=== PATIENT | male | born 1960 | race Caucasian/White ===

== ENCOUNTER 2019-03-27 09:44 | Inpatient (IN) | payer BC, SELFPAY ==
[2019-03-27] VITALS (14 sets, daily range): BP systolic 127–202; BP diastolic 74–136; PULSE 56–111; RESP 16–25; TEMP 36.2–36.9; O2SAT 92–95; BMI 33.2; BMI 33.0
--- NOTE | 2019-03-27 10:07 | EKG12_ITS ---
Test Reason : GENERAL ILLNESS Blood Pressure : / mmHG Vent. Rate : 108 BPM Atrial Rate : 108 BPM P-R Int : 136 ms QRS Dur : 144 ms QT Int : 396 ms P-R-T Axes : 045 -16 -46 degrees QTc Int : 530 ms Sinus tachycardia Left atrial enlargement Right bundle branch block Left ventricular hypertrophy T- wave Abnormality: consider LVH Repolarization ; Myocardial Ischemia; Metabolic Effect, Medication Effect Abnormal ECG Confirmed by RIVAS MARS, YARI ([id number]), clinical editor ANA CRAIG ([id number]) on 03/29/2019 2:29:48 PM Referred By: Derrick Telles Confirmed By:YARI HATHAWAY MD
--- NOTE | 2019-03-27 10:07 | RAD_ITS ---
STUDY: X-RAY CHEST REASON FOR EXAM: Male, 59 years old. Fatigue and dyspnea with night sweats. TECHNIQUE: PA and lateral views of the chest. COMPARISON: None. FINDINGS: Mild prominent interstitial markings with no evidence of focal consolidation. There is no demonstrated pleural abnormality. There is borderline cardiomegaly. Normal mediastinum and mohsen. Normal visualized pulmonary arteries. There is atherosclerotic calcification of the aortic arch with tortuosity. Normal visualized thoracic spine. Normal visualized ribs, clavicles, and shoulders. There is no demonstrated abnormality of the visualized soft tissue structures of the upper abdomen. RAD/Chest PA and Lateral IMPRESSION: Mild prominent interstitial markings with no focal consolidation. Electronically Signed: Bucky Carcamo DO at 10:49 EDT , Service support ,
[2019-03-27 10:19] LABS: Absolute Lymphocyte Count 1.27 X10^3/ul (0.83-4.51); Absolute Neutrophil Count 6.7 X10^3/uL (2.0-7.7); Basophil# 0.02 X10^3/uL; Basophil% 0.2 % (0-1); Eosinophil# 0.12 X10^3/uL; Eosinophils% 1.4 % (0-5); Hematocrit 42.7 % (40-54); Hemoglobin 14.2 g/dl (13.0-16.5); Lymphocyte # 1.27 X10^3/ul (4.0); Lymphocyte % 15.1 % (19-41); Mean Corp Hgb Conc 33.3 g/gl (32-36); Mean Corpuscular Hgb 30.4 pg (27.0-32.0); Mean Corpuscular Volume 91.4 fL (80-94); Mean Platelet Vol. 11.8 fl (6.2-12.0); Monocyte# 0.31 X10^3/uL; Monocyte% 3.7 % (0-10); Neutrophil # 6.69 X10^3/uL (2.7-7.7); Neutrophil % 79.5 % (47-70); Platelet Count 145 K/mm3 (150-450); RBC Distribution Width CV 15.1 % (11.6-14.6); RBC Distribution Width SD 49.4 fl (35.1-43.9); Red Blood Count 4.67 M/mm3 (4.6-6.2); White Blood Count 8.4 K/mm3 (4.4-11.0)
[2019-03-27 10:20] LABS: POSITIVE COUNT NO; POSITIVE DIFFERENTIAL NO; POSITIVE MORPHOLOGY NO
[2019-03-27 10:36] LABS: ALB/GLOB Ratio 1.1 RATIO (0.9-2.4); AST(SGOT) 49 U/L (15-37); Alanine Aminotransfer ALT/SGPT 72 U/L (16-61); Albumin, Serum 3.5 g/dL (3.2-5.0); Alkaline Phosphatase 71 U/L (45-117); Anion Gap 10 (5-15); BUN 26 mg/dL (7-18); BUN/Creat Ratio 16.4 RATIO (10-20); Calcium,Total 8.4 mg/dL (8.5-10.1); Chloride 106 mmol/L (98-107); Creatinine, Serum 1.59 mg/dL (0.70-1.30); EST Glomerular Filtration Rate 48 mL/min (>60); Est Glom Filt Rate - Afr Amer 58 mL/min (>60); Estimated Creatinine Clearance 55.58 ml/min; Globulin 3.2 g/dL (2.2-4.2); Glucose 220 mg/dL (74-106); Potassium 3.4 mmol/L (3.5-5.1); Protein, Total 6.7 g/dL (6.4-8.2); Sodium Level 143 mmol/L (136-145)
[2019-03-27 10:46] LABS: BNP,B-Type NATRIURETIC PEPTIDE 1259.2 pg/mL (0-100)
--- NOTE | 2019-03-27 11:36 | ED.VIS.GEN ---
History of Present Illness Chief Complaint: General Illness Informant: Patient, Significant Other Onset: Weeks Context: Gradual Onset Timing: Continuous Quality: Dyspnea, dyspnea on exertion intermittent chest pressure Location: Midsternal Current Severity: - - Presently no chest pain Maximum Severity: Mild - Precipitated by exertion Worsened by: Patient symptoms are made worse with activity and exertion Relieved by: Better or alleviated with rest Associated Symptoms: Weight gain and leg swelling Narrative: Patient is a middle-aged gentleman who has no cervical medical problems and has not seen a doctor in years who presents with dyspnea, dyspnea on exertion and intermittent midsternal chest tightness with activity. The weight gain is been over the past month. The leg swelling was not noted by patient but noted by significant other. He denies orthopnea or PND. He denies fever, chills night sweats. He has a nonproductive intermittent cough. He denies GI or symptoms. He is presently on no medication. Prior similar symptoms: No Recent Illness/Hospitalization: No - Past Medical History (1) No significant past medical history Status: Acute Past Medical History - Allergies and Home Meds Allergies/Adverse Reactions: Allergies No Known Allergies Allergy (Verified 03/27/19 09:47) Primary Care Physician: Care Physician,No Primary [Primary Care Provider] - Prior records reviewed: No - There are none Surgical History: no surgical history Lives: Spouse/ Significant Other Smoking Status: Former smoker Alcohol: None Drugs: None Review of Systems General: Denies: Chills, Fever, Sweats Eyes: Denies: Visual changes - bilaterally, Diplopia ENT: Denies: Rhinorrhea, Sore throat Cardiovascular: Reports: Heart racing. Denies: Chest pain, Palpitations Respiratory: Reports: Dyspnea, Dyspnea on exertion. Denies: Cough, Orthopnea, Paroxysmal nocturnal dyspnea Gastrointestinal: Denies: Abdominal pain, Nausea, Vomiting, Diarrhea, Melena, Hematochezia Genitourinary: Denies: Dysuria, Hematuria, Frequency Musculoskeletal: Denies: Back pain, Extremity Pain Skin: Denies: Rash, Wounds Neurological: Denies: Headache, Weakness, Parasthesia, Numbness Hematologic: Denies: Easy bruising, Easy bleeding Allergy: Denies: Uticaria, Swelling of the mouth Physical Exam Vital Signs/Narrative: Vital Signs Temp Pulse Resp BP Pulse Ox 03/27/19 09:46 97.1 F L 56 L 18 202/136 H 95 Inital Vital Signs reviewed: Yes General: Well nourished, Well developed, Obese, No Acute Distress Head: Normocephalic, Atraumatic Eyes: Perrl, EOMI. Negative for: Pale conjunctiva, Scleral icterus ENT: Moist mucous membranes, No rhinorrhea, TM's clear, - - Patient has poor dentition. Neck: Negative for: Supple, Nontender, No lymphadenopathy, No JVD, - - Trachea is midline. There is no carotid bruit. Cardiovascular: Regular rhythm, No murmurs, Normal S1, Normal S2, Bradycardia Respiratory: No distress, Chest nontender, Rales - Rales left base Abdomen: Soft, Nontender, Nondistended, Normal bowel sounds, No masses Rectal: Deferred Back: Nontender, Normal Inspection. Negative for: CVA tenderness Extremities: Nontender, Edema - 2+ pitting Skin: No rash, No Trauma, Pallor. Negative for: Cyanosis, Diaphoresis, Jaundice Neurological: Alert, Oriented x3, Cranial nerves II-XII grossly intact, Normal Strength, Normal Sensation Psychological: Normal affect, Normal Mood Diagnostic/Tx/Re-eval Chest X-Ray - ED: 2 View, Read by ED Physician, Normal, Bony Structures, - - There is mild interstitial fluffiness suggestive of congestive heart failure in light of patient's history and physical. Cardiac silhouette is prominent and consistent with cardiomegaly. There is no pleural effusion noted. Impressions Chest X-Ray 03/27/19 10:07 IMPRESSION: Mild prominent interstitial markings with no focal consolidation. Electronically Signed: Bucky Carcamo DO at 10:49 EDT , Service support , 03/27/19 10:07 Chest PA and Lateral [RAD] Stat Laboratory Results 03/27/19 03/27/19 03/27/19 10:11 10:11 10:11 WBC 8.4 RBC 4.67 Hgb 14.2 Hct 42.7 MCV 91.4 MCH 30.4 MCHC 33.3 RDW 15.1 H RDW Differential 49.4 H Plt Count 145 L MPV 11.8 Immature Gran % (Auto) 0.100 Neut % (Auto) 79.5 H Lymph % (Auto) 15.1 L [place] % (Auto) 3.7 Eos % (Auto) 1.4 Baso % (Auto) 0.2 Absolute Neuts (auto) 6.7 Absolute Lymphs (auto) 1.27 Total Counted Not Reportable Sodium 143 Potassium 3.4 L Chloride 106 Carbon Dioxide 27.0 Anion Gap 10 BUN 26 H Creatinine 1.59 H Estim Creat Clear Calc 55.58 Est GFR (MDRD) Af Amer 58 L Est GFR (MDRD) Non-Af 48 L BUN/Creatinine Ratio 16.4 Glucose 220 H Calcium 8.4 L Total Bilirubin 1.00 AST 49 H ALT 72 H Alkaline Phosphatase 71 Troponin I 0.158 H B-Natriuretic Peptide 1259.2 H Total Protein 6.7 Albumin 3.5 Globulin 3.2 Albumin/Globulin Ratio 1.1 - Medical Decision Making Based on patient's history and physical exam concern he has new onset congestive heart failure. We will need to determine etiology. Because he reported chest discomfort with exertion of troponin was obtained. Troponin is elevated 0.158. This may be secondary to heart failure. This may also be secondary to heart strain because of elevated blood pressure. Since his blood pressure initially was greater than 200 he was treated with IV enalapril. He also received 4 baby aspirin to chew and swallow. Clinically he is fluid overloaded and received 20 mrem of Lasix and 1 inch of Nitropaste for diuresis and preload reduction respectively. Patient and significant other were made aware of his findings and need for admission for further testing. 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
[2019-03-27] MEDS: Nitroglycerin Oint 1 INCH PACKET TRANSDERM. (11:43)
[2019-03-27] MEDS: Aspirin 81 MG TAB.CHEW 324 MG PO (11:44)
[2019-03-27] MEDS: Furosemide 20 MG/2 ML VIAL IV (11:44)
[2019-03-27] MEDS: Enalaprilat 1.25 MG/ML Vial IV (11:48)
[2019-03-27] MEDS: Furosemide 40 MG/4 ML Vial IV ×2 (13:10→17:41)
--- NOTE | 2019-03-27 13:35 | PCM.HP.STD ---
Problem List (1) Acute kidney injury Status: Acute (2) Acute heart failure Status: Acute (3) Elevated troponin I level Status: Acute (4) Hypertensive urgency Status: Acute History of Present Illness Date of Admission: 03/27/19 Chief Complaint: Shortness of breath for about 3 weeks The patient is a 59 year old M who has not seen for 14 years came to ED with progressive worsening of shortness of breath mainly dyspnea on exertion for about 1 month. Patient also noticed weight gain and leg swelling noticed by her fianc?. Patient denies orthopnea or PND. Patient gets short of breath when walking 1 block or going upstairs. Patient denies any prior history of heart disease, lung disease. [] Past Medical History Allergies No Known Allergies Allergy (Verified 03/27/19 09:47) Home Medications: Ambulatory Orders Medication Instructions Recorded NK 03/27/19 Surgical History: no surgical history Lives: Spouse/ Significant Other Smoking Status: Former smoker - He smoked occasionally in teenage for 1 to 2 years Tobacco Use: Chew - Phaco Alcohol: None Drugs: None - *Family History Paternal History Items: Heart Disease - at the age of 72 at [facility] [place] Maternal History Items: Heart Disease - 65 at [facility] [place] Review of Systems Constitutional: Denies: Chills, Fever, Weight Change HEENT: Denies: Head Aches, Sinus Congestion, Sinus Drainage Cardiovascular: Denies: Chest Pain, Palpitations Respiratory: Reports: Shortness of breath upon exertion. Denies: Cough, Shortness of breath at rest, Sputum production Gastrointestinal: Reports: Abdominal Pain - Complain of mild abdominal fullness but no pain. Denies: Nausea, Vomiting Genitourinary: Reports: Frequency - Patient is having increased frequency of urination for last 3 to 4 weeks but less amount. Denies: Dysuria Musculoskeletal: Reports: Back Pain - Right-sided back pain about 3 weeks ago which got resolved. Denies: Joint Pain, Joint Tenderness Skin: Denies: Rash, Wounds Neurological: Denies: Numbness, Tingling, Focal weakness Psychiatric: Denies: Anxiety, Depression, Homicidal Ideations, Suicidal Ideations Hematologic/ Lymphatic: Denies: Easy Bruising, Easy Bleeding VTE Information - Inpt Only VTE Present on Admission: No VTE Mechan Device Prophylaxis: None VTE Pharm Prophylaxis ordered?: Yes Patient Problems: Active and Suspected Problems Acute heart failure (Acute) Elevated troponin I level (Acute) Acute renal insufficiency (Acute) Hypertensive urgency (Acute) Acute kidney injury (Acute) - Physical Exam General: Alert, Oriented x3, Cooperative HEENT: Atraumatic, PERRLA, EOMI, Normocephalic Oral: Dry Mucosa Neck: Supple, No JVD, Negative Carotid Bruits, Negative Hepatojugular Reflux Lungs: No rhonchi, No wheeze, No rales, Diminished - Air entry diminished bilaterally Cardiovascular: Regular rate, Regular Rhythm, Normal S1, Normal S2, No murmurs Abdomen: Bowel Sounds Present, Soft, Non Tender, Non-Distended Extremities: Capillary Refill Less than 3 Seconds, Edema - Mild peripheral edema Skin: No rashes, No breakdown Musculoskeletal: No Tenderness to Palpation of Joints or Extremities, Arthritic Changes Lymphatic: No Cervical, Supraclavicular, or Inguinal Adenopathy Neurological: Cranial nerves II-XII grossly intact, Deep Tendon Reflexes 2+/4 and Symmetrical, Neuro grossly intact, Motor Exam 5/5 strength throughout Psych/Mental Status: Normal Affect, Appropriate Vital Signs Temp Pulse Resp BP Pulse Ox 98.3 F 100 16 172/119 H 95 03/27/19 12:27 03/27/19 12:48 03/27/19 12:48 03/27/19 12:27 03/27/19 12:48 Oxygen Flow Rate (L/min) 2 Oxygen Delivery Method Room Air Weight: 243 lb 2.718 oz Body Mass Index (BMI) 33.0 Laboratory Tests Past 24 Hrs 03/27/19 03/27/19 03/27/19 10:11 10:11 10:11 WBC 8.4 RBC 4.67 Hgb 14.2 Hct 42.7 MCV 91.4 MCH 30.4 MCHC 33.3 RDW 15.1 H RDW Differential 49.4 H Plt Count 145 L MPV 11.8 Immature Gran % (Auto) 0.100 Neut % (Auto) 79.5 H Lymph % (Auto) 15.1 L [place] % (Auto) 3.7 Eos % (Auto) 1.4 Baso % (Auto) 0.2 Absolute Neuts (auto) 6.7 Absolute Lymphs (auto) 1.27 Total Counted Not Reportable Sodium 143 Potassium 3.4 L Chloride 106 Carbon Dioxide 27.0 Anion Gap 10 BUN 26 H Creatinine 1.59 H Estim Creat Clear Calc 55.58 Est GFR (MDRD) Af Amer 58 L Est GFR (MDRD) Non-Af 48 L BUN/Creatinine Ratio 16.4 Glucose 220 H Calcium 8.4 L Total Bilirubin 1.00 AST 49 H ALT 72 H Alkaline Phosphatase 71 Troponin I 0.158 H B-Natriuretic Peptide 1259.2 H Total Protein 6.7 Albumin 3.5 Globulin 3.2 Albumin/Globulin Ratio 1.1 Assessment/Plan All Active Problems Acute heart failure (Acute) Elevated troponin I level (Acute) Acute renal insufficiency (Acute) Hypertensive urgency (Acute) Acute kidney injury (Acute) he patient is a 59 year old M who has not seen for 14 years came to ED with progressive worsening of shortness of breath mainly dyspnea on exertion for about 1 month. Patient also noticed weight gain and leg swelling noticed by her fianc?. Patient denies orthopnea or PND. Chest x-ray in ED shows mild interstitial prominence but no focal consolidation. EKG shows sinus tachycardia at 108 bpm, right bundle branch block with left atrial enlargement. [] In ED, patient was found hypertensive urgency, BP 202/136, heart rate 56 but no tachypnea or hypoxia. He got enalapril 1.25 mg IV in ER 1. New onset heart failure, exact type and etiology unclear: Patient is being admitted in PCU. Serial troponin enzymes. Started on Lasix 40 mg IV twice daily. Started on Coreg 3.125 mg twice daily. 2D echo ordered. Patient not candidate of MOIZ/ARB secondary to acute kidney injury. BNP 1200. Fasting lipid profile for tomorrow a.m. 2. Elevated troponin enzyme possible demand ischemia: Trend troponin enzymes. Patient denies chest tightness or chest pain possible related with heart failure/acute kidney injury. Nitro sublingual for chest pain as needed the patient denies chest pain the last 3 to 4 weeks 3. Hypertensive urgency: Started on hydralazine and nitrate. Hydralazine 10 mg IV q. 6 hourly as needed for systolic blood pressure more than 180 or diastolic more than 100 mmHg. 4. New onset diabetes mellitus type 2: Glucose in BMP is 220. Patient has symptoms of polyuria and polydipsia. Has been drinking a lot of pops. A1c tomorrow a.m. Accu-Chek before meals and at bedtime and cover with Humalog sliding scale. UA ordered. 5. Possible acute kidney injury or CKD: BUN/creatinine 26/1.6. No prior labs to compare with. Mild hypokalemia. K being replaced. 6. Recent right-sided back pain 2 to 3 weeks ago: Resolved. KUB x-ray ordered. Every 2 hours: Lovenox 40 subcu daily Laboratory Results 03/27/19 10:11: WBC 8.4, RBC 4.67, Hgb 14.2, Hct 42.7, MCV 91.4, MCH 30.4, MCHC 33.3, RDW 15.1 H, RDW Differential 49.4 H, Plt Count 145 L, MPV 11.8, Immature Gran % (Auto) 0.100, Neut % (Auto) 79.5 H, Lymph % (Auto) 15.1 L, [place] % (Auto) 3.7, Eos % (Auto) 1.4, Baso % (Auto) 0.2, Absolute Neuts (auto) 6.7, Absolute Lymphs (auto) 1.27, Total Counted Not Reportable 03/27/19 10:11: Sodium 143, Potassium 3.4 L, Chloride 106, Carbon Dioxide 27.0, Anion Gap 10, BUN 26 H, Creatinine 1.59 H, Estim Creat Clear Calc 55.58, Est GFR (MDRD) Af Amer 58 L, Est GFR (MDRD) Non-Af 48 L, BUN/Creatinine Ratio 16.4, Glucose 220 H, Calcium 8.4 L, Total Bilirubin 1.00, AST 49 H, ALT 72 H, Alkaline Phosphatase 71, Troponin I 0.158 H, Total Protein 6.7, Albumin 3.5, Globulin 3.2, Albumin/Globulin Ratio 1.1 03/27/19 10:11: B-Natriuretic Peptide 1259.2 H Clinical Impression(s) from Imaging Studies Chest X-Ray 03/27/19 10:07 IMPRESSION: Mild prominent interstitial markings with no focal consolidation. Code Visit Inpatient E&M: 57273 Init Hosp L3
--- NOTE | 2019-03-27 13:50 | ECHOD_ITS ---
Reason For Study: CHF Procedure This was a 2D Doppler, Color Flow transthoracic echocardiogram. Exam performed portable in patient room. Left Ventricle Normal LV size. Moderate concentric left ventricular hypertrophy. The estimated ejection fraction is 35 %. Stage 1 diastolic dysfunction. There is moderate global hypokinesis of the left ventricle. Right Ventricle Normal RV size. Normal systolic function. Atria The left atrium is moderately enlarged. The right atrium is moderately enlarged. Mitral Valve Normal mitral valve. Mild (1+) eccentric mitral valve insufficiency. Tricuspid Valve Normal tricuspid valve. Mild (1+) tricuspid valve insufficiency. Pulmonary artery systolic pressure is 38 mmHg. Aortic Valve Normal aortic valve. Pulmonic Valve Normal pulmonic valve. Great Vessels Normal aortic root. The pulmonary artery is normal size. Normal inferior vena cava. Pericardium/Pleural No pericardial effusion. MMode/2D Measurements & Calculations LVIDd: 5.1 cm IVSd: 1.6 cm Ao root diam: 3.8 cm LVIDs: 4.5 cm LVPWd: 1.6 cm LA dimension: 4.6 cm FS: 12.2 % LAV(MOD-bp): 72.3 ml LVAd ap4: 44.8 cm2 SV(MOD-sp4): 66.5 ml LAV(MOD-bp) Indexed: 31.2 ml/m2 EDV(MOD-sp4): 168.4 ml LAV(MOD-sp2): 60.1 ml EDV(sp4-el): 170.7 ml LAV(MOD-sp4): 75.2 ml LVAs ap4: 31.4 cm2 ESV(MOD-sp4): 101.9 ml ESV(sp4-el): 101.5 ml EF(MOD-sp4): 39.5 % EF(sp4-el): 40.6 % SV(sp4-el): 69.3 ml LA A4 area: 24.9 cm2 RA A4 area: 26.4 cm2 Time Measurements MV dec time: 0.18 sec Doppler Measurements & Calculations MV E max kevin: 83.5 cm/sec Lat Peak E' Kevin: 9.8 cm/sec Med Peak E' Kevin: 6.8 cm/sec MV A max kevin: 97.7 cm/sec E/E' lat: 8.5 E/E' med: 12.3 MV E/A: 0.85 Ao V2 max: 149.5 cm/sec LV V1 max: 101.3 cm/sec MR max kevin: 586.3 cm/sec Ao max P.9 mmHg LV V1 max P.1 mmHg MR max P.5 mmHg MR mean kevin: 435.9 cm/sec MR mean P.9 mmHg MR VTI: 171.0 cm PA V2 max: 120.4 cm/sec TR max kevin: 290.4 cm/sec TR max P.7 mmHg Interpretation Summary Normal LV size. Moderate concentric left ventricular hypertrophy. The estimated ejection fraction is 35 %. Stage 1 diastolic dysfunction. There is moderate global hypokinesis of the left ventricle. The left atrium is moderately enlarged. The right atrium is moderately enlarged. Pulmonary artery systolic pressure is 38 mmHg. Ordering Physician: Derrick Telles Referring Physician: Derrick Telles Performed By: Lucius Suarez RCS
--- NOTE | 2019-03-27 13:58 | RAD_ITS ---
STUDY: X-RAY - ABDOMEN/PELVIS REASON FOR EXAM: Male, 59 years old. Upper back pain TECHNIQUE: 3 views of the abdomen were performed COMPARISON: None. FINDINGS: Normal visualized lung bases. There is an unremarkable bowel gas pattern. There is no demonstrated free abdominal air. The visualized liver, spleen and kidneys are grossly normal in size and morphology. Normal soft tissue structures. There are expected degenerative changes in the lower lumbar spine. RAD/Abdomen Single View IMPRESSION: Normal x-ray examination of the abdomen and pelvis. Electronically Signed: Brenda Owusu, at 18:29 EDT Tel , Service support ,
[2019-03-27] MEDS: hydrALAZINE 20 MG/ML Vial 10 MG IV (14:21)
[2019-03-27 14:43] LABS: Magnesium 1.7 mg/dL (1.6-2.6)
--- NOTE | 2019-03-27 15:07 | CASEMGMT ---
RN CM Assessment Introduced role of RN CM to patient sig. other Catalina Spencer.?Patient currently in xray, information obtained from Sig. Other.?Care providers, pharmacy, and demographics verified. Presentation: Dyspnea, Dyspnea on Exertion and Intermittent Mid Sternal Tightness. Admit Dx: New Onset HF Re-Admit: No Barriers/Issues: Per Sig. Other states that patient has not been to see a Doctor for at least 14years, only seen once at for Gout. No PCP, states that patient plans to try to establish with [facility]. PCP list provided, PCP: None Specialists: None [facility]acy[facility] Insurance: [employer] Benefit: Yes? ?LNOK: Spouse Catalina Spencer LW/HPOA: No, SW completing this visit currently. Living Arrangements:?Lives with spouse in a 2 story, patient Bedroom on lower level, 2 steps to enter through the back. ADL?s: Independent with ambulation and ADL's Transportation: Patient drives, Sig. Other to transport on DC DME: None HHC: None SNF: None Goal: Home, unsure of any needs. Denies any questions/concerns. Aware CM remains available for any emerging needs. DC PLAN: Home, no anticipated needs identified at this time. CLAUDE Simmons
--- NOTE | 2019-03-27 15:55 | CASEMGMT ---
SOCIAL WORK INFORMANT: NURSING REASON FOR REFERRAL: ADVANCED DIRECTIVES HPOA COMPLETED WITH PATIENT AND SIGNIFICANT OTHER. ORIGINAL GIVEN BACK TO PATIENT AND COPY ADDED TO CHART. ANNA SANDS, AUTOMATION QTP TESTER, BODY LINE FINISHER.
[2019-03-27] MEDS: hydrALAZINE 25 MG Tablet PO ×2 (16:23→21:30)
[2019-03-27] MEDS: Isosorbide DN 10 MG Tablet PO ×2 (16:24→21:31)
[2019-03-27] MEDS: Enoxaparin 40 MG/0.4 ML Syringe SC (16:24)
[2019-03-27 17:16] LABS: Bedside Glucose 120 mg/dL (70-110)
[2019-03-27 20:29] LABS: Bacteria 0 SEEN /hpf (None Seen); Mucous, Urine 0 SEEN /hpf (<or=2+); Red Blood Cells-Urine 0 SEEN /hpf (0-5); Squamous Epithelial Cells - UA 0 SEEN /hpf (0-5); White Blood Cells 0 SEEN /hpf (0-5)
[2019-03-27 20:31] LABS: Color, Urine Yellow (Yellow); Glucose, Dipstick Normal (Normal); Ketone-Dipstick Negative (Negative); Leukocyte Esterase-Dipstick Negative /ul (Negative); Nitrite-Dipstick Negative (Negative); Occult Blood-Urine Negative /ul (Negative); Protein-Dipstick Negative (Negative); Urine Bilirubin Dipstick Negative (Negative); Urine Clarity Clear (Clear); Urine Urobilinogen Normal (Normal)
[2019-03-27] MEDS: Carvedilol 3.125 MG TABLET PO (21:31)
[2019-03-27 21:41] LABS: Bedside Glucose 112 mg/dL (70-110)
[2019-03-28] VITALS (18 sets, daily range): BP systolic 137–177; BP diastolic 85–113; PULSE 96–117; RESP 16–18; TEMP 36.4–37.3; O2SAT 92–95
[2019-03-28] MEDS: hydrALAZINE 25 MG Tablet PO ×3 (06:01→21:28)
[2019-03-28] MEDS: Isosorbide DN 10 MG Tablet PO ×3 (06:01→21:28)
[2019-03-28 06:08] LABS: Anion Gap 9 (5-15); BUN 22 mg/dL (7-18); BUN/Creat Ratio 16.9 RATIO (10-20); Calcium,Total 8.3 mg/dL (8.5-10.1); Chloride 104 mmol/L (98-107); Cholesterol 129 mg/dL (200); EST Glomerular Filtration Rate 60 mL/min (>60); Est Glom Filt Rate - Afr Amer 73 mL/min (>60); Estimated Creatinine Clearance 67.98 ml/min; Glucose 99 mg/dL (74-106); High Density Lipoprotein 26 mg/dL; Sodium Level 144 mmol/L (136-145); Thyroid Stim Hormone (TSH) 0.72 uIU/mL (0.358-3.74); Triglycerides 125 mg/dL; Very Low Density Lipoprotein 25 mg/dL (5-40)
[2019-03-28 06:41] LABS: Bedside Glucose 122 mg/dL (70-110)
[2019-03-28 07:27] LABS: Hemoglobin A1c 5.8 % (4.2-6.3)
[2019-03-28] MEDS: Enoxaparin 40 MG/0.4 ML Syringe SC (09:23)
[2019-03-28] MEDS: Carvedilol 3.125 MG TABLET PO ×2 (09:23→21:28)
[2019-03-28] MEDS: Furosemide 40 MG/4 ML Vial IV ×2 (09:23→17:00)
[2019-03-28 09:41] LABS: Magnesium 1.7 mg/dL (1.6-2.6)
[2019-03-28 11:25] LABS: Bedside Glucose 118 mg/dL (70-110)
--- NOTE | 2019-03-28 14:50 | PN_ITS ---
Patient Problems: Active and Suspected Problems Acute heart failure (Acute) Elevated troponin I level (Acute) Acute renal insufficiency (Acute) Hypertensive urgency (Acute) Acute kidney injury (Acute) Subjective: Overall, patient's symptoms are improved with regard to shortness of breath and leg swelling. Patient heart rate is regular between 9200/min. Blood pressure is better controlled 144/95. Vitals/I&O's: Vital Signs Temp Pulse Resp BP Pulse Ox 98.5 F 108 H 16 144/95 H 94 03/28/19 09:15 03/28/19 14:00 03/28/19 14:00 03/28/19 09:15 03/28/19 14:00 Oxygen Flow Rate (L/min) 2 Oxygen Delivery Method Room Air Weight: 231 lb 7.766 oz Body Mass Index (BMI) 33.0 Intake and Output for Last 24 Hours 03/26/19 03/27/19 03/28/19 23:59 23:59 23:59 Intake Total 480 / 480 600 / 600 Output Total 800 / 800 Balance 480 / 480 -200 / -200 General: Alert, Oriented x3, Cooperative HEENT: Atraumatic, PERRLA, EOMI, Normocephalic Neck: Supple, No JVD, Negative Carotid Bruits Lungs: Clear to auscultation, Normal air movement, No rhonchi, No wheeze, No rales, Diminished - Air entry is diminished in bilateral lung bases. Cardiovascular: Regular rate, Regular Rhythm, Normal S1, Normal S2, No murmurs Abdomen: Bowel Sounds Present, Soft, Non Tender, Non-Distended Extremities: Capillary Refill Less than 3 Seconds, Edema - Pedal edema has almost resolved Skin: No rashes, No breakdown Musculoskeletal: No Tenderness to Palpation of Joints or Extremities, Arthritic Changes Neurological: Cranial nerves II-XII grossly intact, Deep Tendon Reflexes 2+/4 and Symmetrical, Neuro grossly intact Psych/Mental Status: Normal Affect, Appropriate Laboratory Results 03/27/19 14:41: POC Glucose 120 H 03/27/19 18:10: Troponin I 0.176 H 03/27/19 18:45: Urine Color Yellow, Urine Clarity Clear, Urine pH 7.0, Ur Specific [place] 1.010, Urine Protein Negative, Urine Glucose (UA) Normal, Urine Ketones Negative, Urine Occult Blood Negative, Urine Nitrite Negative, Urine Bilirubin Negative, Urine Urobilinogen Normal, Ur Leukocyte Esterase Negative, Urine RBC 0 SEEN, Urine WBC 0 SEEN, Ur Squamous Epith Cells 0 SEEN, Urine Bacteria 0 SEEN, Urine Mucus 0 SEEN 03/27/19 21:19: POC Glucose 112 H 03/28/19 05:00: Sodium 144, Potassium 3.0 L, Chloride 104, Carbon Dioxide 31.0, Anion Gap 9, BUN 22 H, Creatinine 1.30, Estim Creat Clear Calc 67.98, Est GFR (MDRD) Af Amer 73, Est GFR (MDRD) Non-Af 60, BUN/Creatinine Ratio 16.9, Glucose 99, Calcium 8.3 L, Triglycerides 125, Cholesterol 129, LDL Cholesterol 78, VLDL Cholesterol 25, HDL Cholesterol 26 L, TSH 0.72 03/28/19 05:00: Hemoglobin A1c 5.8 03/28/19 05:00: Magnesium 1.7 03/28/19 06:36: POC Glucose 122 H 03/28/19 11:13: POC Glucose 118 H Current Medications Acetaminophen (Tylenol) 650 mg PO Q6H PRN PRN PRN Reason: Mild Pain (scale 0-3)/T>100.7 Albuterol Sulfate (Ventolin Aerosols) 2.5 mg INHALATION Q2H PRN PRN PRN Reason: SOB/Wheezing Carvedilol (Coreg) 3.125 mg PO BID [facility] Last Admin: 03/28/19 09:23 Dose: 3.125 mg Documented by: Dextrose (D50w Syringe) 0 gm IV X1 PRN; Protocol PRN Reason: Hypoglycemia Docusate Sodium (Colace) 200 mg PO BID PRN PRN PRN Reason: Constipation Enoxaparin Sodium (Lovenox) 40 mg SC DAILY@1000 [facility] Last Admin: 03/28/19 09:23 Dose: 40 mg Documented by: Furosemide (Lasix) 40 mg IV BID@1000,1800 [facility] Last Admin: 03/28/19 09:23 Dose: 40 mg Documented by: Glucagon () 1 mg IM .X1 PRN PRN Reason: Hypoglycemia Hydralazine HCl (Apresoline Iv) 10 mg IV Q4H PRN PRN PRN Reason: SBP>180 and/or DBP>100 Last Admin: 03/27/19 14:21 Dose: 10 mg Documented by: Hydralazine HCl (Apresoline) 25 mg PO TID [facility] Last Admin: 03/28/19 13:59 Dose: 25 mg Documented by: Insulin Human Lispro (Humalog Kwikpen (Bkc)) 0 unit SC [facility]; Protocol Last Admin: 03/28/19 11:23 Dose: Not Given Documented by: Isosorbide Dinitrate (Isordil) 10 mg PO TID [facility] Last Admin: 03/28/19 14:00 Dose: 10 mg Documented by: Morphine Sulfate () 2 mg IV Q3H PRN PRN PRN Reason: Severe Pain (pain scale 6-10) Ondansetron HCl (Zofran) 4 mg IV Q8H PRN PRN PRN Reason: Nausea Oxycodone HCl (Oxyir) 5 mg PO Q4H PRN PRN PRN Reason: Moderate Pain (pain scale 4-5) Polyethylene Glycol (Miralax) 17 gm PO DAILY [facility] Last Admin: 03/28/19 09:19 Dose: Not Given Documented by: [facility] Stop: 03/30/19 08:48 Last Admin: 03/28/19 09:23 Dose: 40 meq Documented by: Sodium Chloride () 10 - 40 ml IV UD PRN PRN Reason: SALINE FLUSH Medical Necessity - Tobacco Use Smoking Status: Former smoker Tobacco Use: Chew Assessment/Plan All Active Problems Acute heart failure (Acute) Elevated troponin I level (Acute) Acute renal insufficiency (Acute) Hypertensive urgency (Acute) Acute kidney injury (Acute) he patient is a 59 year old M who has not seen DrSalina for 14 years came to ED with progressive worsening of shortness of breath mainly dyspnea on exertion for about 1 month. Patient also noticed weight gain and leg swelling noticed by her fianc?. Patient denies orthopnea or PND. Chest x-ray in ED shows mild interstitial prominence but no focal consolidation. EKG shows sinus tachycardia at 108 bpm, right bundle branch block with left atrial enlargement. [] In ED, patient was found hypertensive urgency, BP 202/136, heart rate 56 but no tachypnea or hypoxia. He got enalapril 1.25 mg IV in ER 1. New onset heart failure, exact type and etiology unclear: Patient is being admitted in PCU. Serial troponin enzymes. Started on Lasix 40 mg IV twice daily. Started on Coreg 3.125 mg twice daily. 2D echo ordered. Patient not candidate of MOIZ/ARB secondary to acute kidney injury. BNP 1200. Fasting lipid profile for tomorrow a.m. 2. Elevated troponin enzyme possible demand ischemia: Serial troponins are elevated 0.158 0.159 and 0.176. Possible related to heart failure/acute kidney injury Nitro sublingual for chest pain as needed the patient denies chest pain the last 3 to 4 weeks. Echo tomorrow morning. Will talk to assistant sales manager tomorrow for elevated troponin. 3. Hypertensive urgency: Started on hydralazine and nitrate. Hydralazine 10 mg IV q. 6 hourly as needed for systolic blood pressure more than 180 or diastolic more than 100 mmHg. 4. Diabetes: Glucose in BMP is 220. Patient has symptoms of polyuria and polydipsia. Has been drinking a lot of pops. A1c 5.8 history of prediabetes. Accu-Chek before meals and at bedtime and cover with Humalog sliding scale. UA is negative off glucose, ketones and protein. Urine negative. 5. Most likely CKD stage III with prerenal azotemia/fluid overload from CHF: BUN/creatinine 26/1.6. Mild hypokalemia: Potassium being replaced. BUN/creatinine 22/1.3. Does not meet criteria for acute kidney injury. 6. Recent right-sided back pain 2 to 3 weeks ago: Resolved. KUB x-ray negative. DVT prophylaxis: Lovenox 40 subcu daily Laboratory Results 03/27/19 14:41: POC Glucose 120 H 03/27/19 18:10: Troponin I 0.176 H 03/27/19 18:45: Urine Color Yellow, Urine Clarity Clear, Urine pH 7.0, Ur Specific [place] 1.010, Urine Protein Negative, Urine Glucose (UA) Normal, Urine Ketones Negative, Urine Occult Blood Negative, Urine Nitrite Negative, Urine Bilirubin Negative, Urine Urobilinogen Normal, Ur Leukocyte Esterase Negative, Urine RBC 0 SEEN, Urine WBC 0 SEEN, Ur Squamous Epith Cells 0 SEEN, Urine Bacteria 0 SEEN, Urine Mucus 0 SEEN 03/27/19 21:19: POC Glucose 112 H 03/28/19 05:00: Sodium 144, Potassium 3.0 L, Chloride 104, Carbon Dioxide 31.0, Anion Gap 9, BUN 22 H, Creatinine 1.30, Estim Creat Clear Calc 67.98, Est GFR (MDRD) Af Amer 73, Est GFR (MDRD) Non-Af 60, BUN/Creatinine Ratio 16.9, Glucose 99, Calcium 8.3 L, Triglycerides 125, Cholesterol 129, LDL Cholesterol 78, VLDL Cholesterol 25, HDL Cholesterol 26 L, TSH 0.72 03/28/19 05:00: Hemoglobin A1c 5.8 03/28/19 05:00: Magnesium 1.7 03/28/19 06:36: POC Glucose 122 H 03/28/19 11:13: POC Glucose 118 H Laboratory Results 03/27/19 10:11: WBC 8.4, RBC 4.67, Hgb 14.2, Hct 42.7, MCV 91.4, MCH 30.4, MCHC 33.3, RDW 15.1 H, RDW Differential 49.4 H, Plt Count 145 L, MPV 11.8, Immature Gran % (Auto) 0.100, Neut % (Auto) 79.5 H, Lymph % (Auto) 15.1 L, [place] % (Auto) 3.7, Eos % (Auto) 1.4, Baso % (Auto) 0.2, Absolute Neuts (auto) 6.7, Absolute Lymphs (auto) 1.27, Total Counted Not Reportable 03/27/19 10:11: Sodium 143, Potassium 3.4 L, Chloride 106, Carbon Dioxide 27.0, Anion Gap 10, BUN 26 H, Creatinine 1.59 H, Estim Creat Clear Calc 55.58, Est GFR (MDRD) Af Amer 58 L, Est GFR (MDRD) Non-Af 48 L, BUN/Creatinine Ratio 16.4, Glucose 220 H, Calcium 8.4 L, Total Bilirubin 1.00, AST 49 H, ALT 72 H, Alkaline Phosphatase 71, Troponin I 0.158 H, Total Protein 6.7, Albumin 3.5, Globulin 3.2, Albumin/Globulin Ratio 1.1 03/27/19 10:11: B-Natriuretic Peptide 1259.2 H Clinical Impression(s) from Imaging Studies Chest X-Ray 03/27/19 10:07 IMPRESSION: Mild prominent interstitial markings with no focal consolidation. Code Visit Inpatient E&M: 53086 Subs Hosp L3
[2019-03-28] MEDS: hydrALAZINE 20 MG/ML Vial 10 MG IV (15:58)
[2019-03-28 16:01] LABS: Bedside Glucose 123 mg/dL (70-110)
[2019-03-28 21:41] LABS: Bedside Glucose 114 mg/dL (70-110)
[2019-03-29] VITALS (16 sets, daily range): BP systolic 130–163; BP diastolic 73–113; PULSE 92–108; RESP 14–17; TEMP 36.9–37.9; O2SAT 92–96
[2019-03-29] MEDS: hydrALAZINE 20 MG/ML Vial 10 MG IV (03:21)
[2019-03-29] MEDS: 0.9% NaCl Peripheral Flush Adult/Peds IV (03:22)
[2019-03-29] MEDS: Isosorbide DN 10 MG Tablet PO ×2 (05:54→13:20)
[2019-03-29] MEDS: hydrALAZINE 25 MG Tablet PO ×3 (05:54→21:23)
[2019-03-29 06:40] LABS: Bedside Glucose 98 mg/dL (70-110)
[2019-03-29 07:23] LABS: Anion Gap 8 (5-15); BUN 20 mg/dL (7-18); BUN/Creat Ratio 16.3 RATIO (10-20); Calcium,Total 8.5 mg/dL (8.5-10.1); Chloride 104 mmol/L (98-107); Creatinine, Serum 1.23 mg/dL (0.70-1.30); EST Glomerular Filtration Rate 64 mL/min (>60); Est Glom Filt Rate - Afr Amer 78 mL/min (>60); Estimated Creatinine Clearance 71.85 ml/min; Glucose 111 mg/dL (74-106); Magnesium 1.7 mg/dL (1.6-2.6); Potassium 3.1 mmol/L (3.5-5.1); Sodium Level 141 mmol/L (136-145)
[2019-03-29] MEDS: Furosemide 40 MG/4 ML Vial IV (10:26)
[2019-03-29] MEDS: Enoxaparin 40 MG/0.4 ML Syringe SC (10:26)
[2019-03-29] MEDS: Carvedilol 3.125 MG TABLET PO (10:31)
--- NOTE | 2019-03-29 11:35 | DCINST_ITS ---
- Discharge Diagnoses Current Active Problems: Current Active and Chronic Problems Acute heart failure (Acute) Elevated troponin I level (Acute) Acute renal insufficiency (Acute) Hypertensive urgency (Acute) Acute kidney injury (Acute) You will use the following diet at home:: Calorie/Carbohydrate Controlled (specify 1200, 1400, etc), Cardiac Your food should be the consistency of: Regular Discharge Activity: Return to Normal Activity Weight Bearing Status: Weight bearing as tolerated Call your doctor if you observe: Fever of 101 or Higher, Numbness or Tingling, Inability to urinate, Inability to have a bowel movement, Shortness of breath, Fainting spells, Swelling in the ankles, Chest pain, Increased palpitations (irregular heartbeat), Calf discomfort, Uncontrolled pain Allergies/Adverse Reactions: Allergies No Known Allergies Allergy (Verified 03/27/19 09:47) Medications to take at Discharge Carvedilol [Coreg] 6.25 mg PO BID #60 tab 03/29/19 Furosemide [Lasix] 40 mg PO DAILY #30 tab 03/29/19 Lisinopril [Zestril] 5 mg PO DAILY #30 tab 03/29/19 Potassium Chloride [K-Dur] 20 meq PO DAILY tab 03/29/19 hydrALAZINE [Apresoline] 25 mg PO TID #90 tab 03/29/19 The following prescriptions were given: hydrALAZINE [Apresoline] 25 mg PO TID #90 tab Transmission Status: Pending to [id number] Carvedilol [Coreg] 6.25 mg PO BID #60 tab Transmission Status: Pending to [id number] Furosemide [Lasix] 40 mg PO DAILY #30 tab Transmission Status: Pending to [id number] Lisinopril [Zestril] 5 mg PO DAILY #30 tab Transmission Status: Pending to [id number] Primary Care Physician: Anthony Cabral Chi, MD [COURTESY STAFF PHYSICIAN] - Please follow up with your Primary Care Physician in: in 1-2 weeks for new onset HF Test Results: Test results from this visit will be discussed in further detail at your follow- up appointment, if applicable. Please Follow Up With: Abebe Terry MD When: IN 3-4 WEEKS FOR Outpatient stress test and Heart failure
--- NOTE | 2019-03-29 15:10 | CHAPLAIN ---
Type of Pastoral Visit _x__ Initial Visit ___ Follow-up Visit ___ On-call Visit ___ General Patient Visit ___ Spiritual Assessment ___ Family Conference ___ Bereavement ___ Rapid Response ___ Code Blue ___ Other (describe below) Pastoral Care Referral From _x__ Patient ___ Family ___ Nurse ___ Physician ___ Fuel Cell Systems Engineer ___ Shape Carver ___ Other (describe below) Sacrament/Intervention _x__ Active listening ___ Anointing ___ Scientologist ___ Bereavement ___ Communion ___ Traci exploration ___ _x__ Life review _x__ Prayer ___ Reconciliation ___ Sacrament of Sick ___ Supportive presence ___ Wedding ___ Other (describe below) Pastoral Comments
--- NOTE | 2019-03-29 16:45 | PCM.PN.HOSP ---
Patient Problems: Active and Suspected Problems Acute heart failure (Acute) Elevated troponin I level (Acute) Acute renal insufficiency (Acute) Hypertensive urgency (Acute) Acute kidney injury (Acute) Subjective: The patient shortness of breath is much better. Does not have chest pain. Leg swelling have subsided. Vitals/I&O's: Vital Signs Temp Pulse Resp BP Pulse Ox 98.5 F 97 16 137/81 H 96 03/29/19 13:27 03/29/19 13:27 03/29/19 13:27 03/29/19 13:27 03/29/19 13:27 Oxygen Flow Rate (L/min) 2 Oxygen Delivery Method Room Air Weight: 224 lb 10.417 oz Body Mass Index (BMI) 33.0 Intake and Output for Last 24 Hours 03/27/19 03/28/19 03/29/19 23:59 23:59 23:59 Intake Total 480 / 480 840 / 840 240 / 240 Output Total 2900 / 2900 1175 / 1175 Balance 480 / 480 -2060 / -2060 -935 / -935 General: Alert, Oriented x3, Cooperative HEENT: Atraumatic, PERRLA, EOMI, Normocephalic Neck: Supple, No JVD, Negative Carotid Bruits Lungs: Clear to auscultation, Normal air movement, Diminished - Slightly diminished bilateral lung bases. Cardiovascular: Regular rate, Regular Rhythm, Normal S1, Normal S2, No murmurs Abdomen: Bowel Sounds Present, Soft, Non Tender, Non-Distended Extremities: No edema, Capillary Refill Less than 3 Seconds Skin: No rashes, No breakdown Musculoskeletal: No Tenderness to Palpation of Joints or Extremities, Arthritic Changes Lymphatic: No Cervical, Supraclavicular, or Inguinal Adenopathy Neurological: Cranial nerves II-XII grossly intact, Deep Tendon Reflexes 2+/4 and Symmetrical, Neuro grossly intact, Motor Exam 5/5 strength throughout Psych/Mental Status: Normal Affect, Appropriate Laboratory Results 03/28/19 21:20: POC Glucose 114 H 03/29/19 05:05: Sodium 141, Potassium 3.1 L, Chloride 104, Carbon Dioxide 29.0, Anion Gap 8, BUN 20 H, Creatinine 1.23, Estim Creat Clear Calc 71.85, Est GFR (MDRD) Af Amer 78, Est GFR (MDRD) Non-Af 64, BUN/Creatinine Ratio 16.3, Glucose 111 H, Calcium 8.5, Magnesium 1.7, Troponin I 0.177 H 03/29/19 06:33: POC Glucose 98 Current Medications Acetaminophen (Tylenol) 650 mg PO Q6H PRN PRN PRN Reason: Mild Pain (scale 0-3)/T>100.7 Albuterol Sulfate (Ventolin Aerosols) 2.5 mg INHALATION Q2H PRN PRN PRN Reason: SOB/Wheezing Carvedilol (Coreg) 3.125 mg PO BID [facility] Last Admin: 03/29/19 10:31 Dose: 3.125 mg Documented by: Dextrose (D50w Syringe) 0 gm IV X1 PRN; Protocol PRN Reason: Hypoglycemia Docusate Sodium (Colace) 200 mg PO BID PRN PRN PRN Reason: Constipation Enoxaparin Sodium (Lovenox) 40 mg SC DAILY@1000 [facility] Last Admin: 03/29/19 10:26 Dose: 40 mg Documented by: Furosemide (Lasix) 40 mg IV BID@1000,1800 [facility] Last Admin: 03/29/19 10:26 Dose: 40 mg Documented by: Glucagon () 1 mg IM .X1 PRN PRN Reason: Hypoglycemia Hydralazine HCl (Apresoline Iv) 10 mg IV Q4H PRN PRN PRN Reason: SBP>180 and/or DBP>100 Last Admin: 03/29/19 03:21 Dose: 10 mg Documented by: Hydralazine HCl (Apresoline) 25 mg PO TID [facility] Last Admin: 03/29/19 13:22 Dose: 25 mg Documented by: Isosorbide Dinitrate (Isordil) 10 mg PO TID [facility] Last Admin: 03/29/19 13:20 Dose: 10 mg Documented by: Morphine Sulfate () 2 mg IV Q3H PRN PRN PRN Reason: Severe Pain (pain scale 6-10) Ondansetron HCl (Zofran) 4 mg IV Q8H PRN PRN PRN Reason: Nausea Oxycodone HCl (Oxyir) 5 mg PO Q4H PRN PRN PRN Reason: Moderate Pain (pain scale 4-5) Polyethylene Glycol (Miralax) 17 gm PO DAILY [facility] Last Admin: 03/29/19 10:26 Dose: Not Given Documented by: Potassium Chloride (K-Dur) 40 meq PO BIDCM [facility] Stop: 03/30/19 08:48 Last Admin: 03/29/19 10:25 Dose: 40 meq Documented by: Sodium Chloride () 10 - 40 ml IV UD PRN PRN Reason: SALINE FLUSH Last Admin: 03/29/19 03:22 Dose: 10 ml Documented by: Medical Necessity - Tobacco Use Smoking Status: Former smoker Tobacco Use: Chew Assessment/Plan All Active Problems Acute heart failure (Acute) Elevated troponin I level (Acute) Acute renal insufficiency (Acute) Hypertensive urgency (Acute) Acute kidney injury (Acute) he patient is a 59 year old M who has not seen for 14 years came to ED with progressive worsening of shortness of breath mainly dyspnea on exertion for about 1 month. Patient also noticed weight gain and leg swelling noticed by her fianc?. Patient denies orthopnea or PND. Chest x-ray in ED shows mild interstitial prominence but no focal consolidation. EKG shows sinus tachycardia at 108 bpm, right bundle branch block with left atrial enlargement. [] In ED, patient was found hypertensive urgency, BP 202/136, heart rate 56 but no tachypnea or hypoxia. He got enalapril 1.25 mg IV in ER 1. New onset heart failure, exact type and etiology unclear: Patient is being admitted in PCU. Echo reported as EF 35% with moderate global hypokinesis. Stage I diastolic dysfunction. Left atrium and right atrium moderately enlarged. Mild 1+ eccentric MR. Mild TR with RVSP 38 mmHg. Normal aortic valve and pulmonic valve. Based on the echo findings, contact lens flashing puncher has been consulted. After the option given for outpatient ischemic evaluation with a stress test/heart cath right now, the patient opted for cardiac cath during this hospital course. Scheduled for cardiac cath tomorrow morning. Patient has been diuresed well. Hold the Lasix for tomorrow cardiac cath. Increase Coreg to 6.25 mg. Consider MOIZ/ARB at the time of discharge. BNP 1200. Fasting lipid profile reported as LDL 78, triglyceride 125, HDL 26. TSH normal. 2. Elevated troponin enzyme possible demand ischemia: Serial troponins are elevated 0.158 0.159 and 0.176. Possible related to heart failure/acute kidney injury Nitro sublingual for chest pain as needed the patient denies chest pain the last 3 to 4 weeks. Heart catheter tomorrow a.m. 3. Hypertensive urgency: Started on hydralazine and nitrate. Hydralazine 10 mg IV q. 6 hourly as needed for systolic blood pressure more than 180 or diastolic more than 100 mmHg. Pressure is controlled. 4. Diabetes: Glucose in BMP is 220. Patient has symptoms of polyuria and polydipsia. Has been drinking a lot of pops. A1c 5.8 history of prediabetes. Accu-Chek before meals and at bedtime and cover with Humalog sliding scale. UA is negative off glucose, ketones and protein. Urine negative. 5. Most likely CKD stage III with prerenal azotemia/fluid overload from CHF: BUN/creatinine 26/1.6. Mild hypokalemia: Potassium being replaced. BUN/creatinine 22/1.3. Does not meet criteria for acute kidney injury. BUN/creatinine 20/1.3. Mild hypokalemia secondary to diuretics: Potassium replaced. 6. Recent right-sided back pain 2 to 3 weeks ago: Resolved. KUB x-ray negative. DVT prophylaxis: Lovenox 40 subcu daily Laboratory Results 03/28/19 21:20: POC Glucose 114 H 03/29/19 05:05: Sodium 141, Potassium 3.1 L, Chloride 104, Carbon Dioxide 29.0, Anion Gap 8, BUN 20 H, Creatinine 1.23, Estim Creat Clear Calc 71.85, Est GFR (MDRD) Af Amer 78, Est GFR (MDRD) Non-Af 64, BUN/Creatinine Ratio 16.3, Glucose 111 H, Calcium 8.5, Magnesium 1.7, Troponin I 0.177 H 03/29/19 06:33: POC Glucose 98 03/28/19 05:00: Sodium 144, Potassium 3.0 L, Chloride 104, Carbon Dioxide 31.0, Anion Gap 9, BUN 22 H, Creatinine 1.30, Estim Creat Clear Calc 67.98, Est GFR (MDRD) Af Amer 73, Est GFR (MDRD) Non-Af 60, BUN/Creatinine Ratio 16.9, Glucose 99, Calcium 8.3 L, Triglycerides 125, Cholesterol 129, LDL Cholesterol 78, VLDL Cholesterol 25, HDL Cholesterol 26 L, TSH 0.72 03/28/19 05:00: Hemoglobin A1c 5.8 03/28/19 05:00: Magnesium 1.7 03/27/19 10:11: B-Natriuretic Peptide 1259.2 H Clinical Impression(s) from Imaging Studies Chest X-Ray 03/27/19 10:07 IMPRESSION: Mild prominent interstitial markings with no focal consolidation. Code Visit Inpatient E&M: 11481 Subs Hosp L3
--- NOTE | 2019-03-29 17:19 | CON.PCM_ITS ---
Reason for Consult Date of Consultation: 03/29/19 Reason for Consultation: Chest pain. Shortness of breath. Abnormal ech ocardiogram History of Present Illness: The patient is a 59 year old M with no previous medical history who has not seen a physician in years. He presented to the emergency room a few days ago with chest tightness as well as shortness of breath and mild pedal edema. He also had a cough and described what appeared to be orthopnea. He was seen in the emergency room was noted to be tachycardic and had mildly elevated cardiac enzymes as well as a markedly elevated blood pressure which was more than 200 systolic. He previously has not been on any medication. He was started on Lasix as well as an MOIZ inhibitor with improvement in his blood pressure. An echocardiogram performed today demonstrated an ejection fraction which was globally reduced estimated at approximately 35%. Based on all the above it was determined that cardiology should see him. He has denied chest pain in the past and no palpitations or paroxysmal nocturnal dyspnea no dizziness and no presyncope or syncope. [] Past Medical History Allergies/Adverse Reactions: Allergies No Known Allergies Allergy (Verified 03/27/19 09:47) Home Medications: Ambulatory Orders Medication Instructions Recorded Aspirin E.C. [Ecotrin] 81 mg PO DAILY@0800 #30 tab 03/29/19 Carvedilol [Coreg] 6.25 mg PO BID #60 tab 03/29/19 Furosemide [Lasix] 40 mg PO DAILY #30 tab 03/29/19 Lisinopril [Zestril] 5 mg PO DAILY #30 tab 03/29/19 Potassium Chloride [K-Dur] 20 meq PO DAILY tab 03/29/19 hydrALAZINE [Apresoline] 25 mg PO TID #90 tab 03/29/19 Surgical History: no surgical history - *Family History Paternal History Items: Heart Disease - at the age of 72 at [facility] [place] Maternal History Items: Heart Disease - 65 [place] [facility] [place] Lives: Spouse/ Significant Other Smoking Status: Former smoker Tobacco Use: Chew Alcohol: None Drugs: None Review of Systems - Review of Systems General: Denies: Fever, Night Sweats, Fatigue HEENT: Denies: Vision Change Cardiovascular: Reports: Chest Discomfort, Shortness of Breath. Denies: Orthopnea, PND, Peripheral Edema, Palpitations, Lightheadedness, Dizziness, Near Syncope, Syncope Respiratory: Denies: Cough, Sputum Production, Hemoptysis Gastrointestinal: Denies: Hematemesis, Hematochezia, Melena Genitourinary: Denies: Dysuria, Hematuria Muscoloskeletal: Denies: Myalgias Skin: Denies: Rash Neurological: Denies: Dizziness Psychiatric: Denies: Anxiety Endocrine: Denies: Heat Intolerance Hematologic/ Lymphatic: Denies: Anemia Subjectve: Pleasant gentleman in no apparent distress at this time Objective: Vital Signs Temp Pulse Resp BP Pulse Ox 98.5 F 92 16 137/81 H 96 03/29/19 13:27 03/29/19 14:58 03/29/19 13:27 03/29/19 13:27 03/29/19 13:27 Oxygen Flow Rate (L/min) 2 Oxygen Delivery Method Room Air Weight: 224 lb 10.417 oz Body Mass Index (BMI) 33.0 Intake and Output for Last 24 Hours 03/27/19 03/28/19 03/29/19 23:59 23:59 23:59 Intake Total 480 / 480 840 / 840 240 / 240 Output Total 2900 / 2900 1175 / 1175 Balance 480 / 480 -2060 / -2060 -935 / -935 General: Awake, Alert, Oriented x 3 HEENT: PERRL, EOMI, Sclera Non Icteric Neck: Supple, Good ROM, No Lymph Node Enlargement Lungs: Clear to auscultation Cardiovascular: Regular Rhythm, Normal S1, Normal S2, No Murmurs, No Rubs, Positive S3 Vascular: No Carotid Bruits, Normal Femoral Pulses, Normal Radial Pulses, Normal Dorsalis Pedal Pulse, Normal Posterior Tibial Pulses Abdomen: Bowel Sounds Present, Soft, Non Tender, No HSM, No Organomegaly Extremities: No Cyanosis, No Clubbing, No edema Musculoskeletal: No Erythema Skin: No Rashes Lymphatic: No Lymph Node Enlargement Neurological: No Focal Motor or Sensory Deficit Psych/Mental Status: Appropriate 03/29/19 05:05: Sodium 141, Potassium 3.1 L, Chloride 104, Carbon Dioxide 29.0, Anion Gap 8, BUN 20 H, Creatinine 1.23, Est GFR (MDRD) Af Amer 78, Est GFR (MDRD) Non-Af 64, BUN/Creatinine Ratio 16.3, Glucose 111 H, Calcium 8.5, Magnesium 1.7, Troponin I 0.177 H Rhythm: EKG: Sinus tachycardia with repolarization changes noted ECHO: Global reduction in left ventricular ejection fraction estimated at 35% Stress Test: Cardiac Cath: PCI: CT Surgery: Holter monitor: EPS: PPM: CXR: Chest CT Scan: Assessment/Plan 1. Congestive heart failure-acute systolic * Patient appears to have presented with acute systolic congestive heart failure which is new. His blood pressure is noted to be markedly elevated and it is likely that his heart failure is on the basis of hypertensive heart disease. His echocardiogram demonstrates an ejection fraction of 35%, with stage I diastolic dysfunction, mild mitral and tricuspid regurgitation. * Recommendation would be to start him on Lasix 40 mg a day * Start MOIZ inhibitor * Start carvedilol 6.25 mg twice a day * Will recommend a cardiac catheterization to exclude obstructive coronary disease especially with his mild troponin elevation. * 2. Severe hypertension * Patient presented with severe hypertension unbeknownst to him. The above may be essential in nature but one may need to exclude aldosterone problems due to his hypokalemia * We will continue with the MOIZ inhibitor as well as a beta-jeremiah and appropriate potassium supplementation. * I suspect his troponin elevation is likely secondary to the above. * * 3. Abnormal cardiac enzymes * He does have mildly abnormal cardiac enzymes. I suspect the above is secondary to demand ischemia from his markedly elevated blood pressure. * * Thank you for allowing me to participate in the care of your patient. Please don't hesitate to call if any issues arise * Risk factor modification, adherence to medical therapy has been emphasized to him.
[2019-03-29] MEDS: Aspirin E.C. 81 MG Tablet PO (18:13)
[2019-03-29] MEDS: Clopidogrel Bisulfate 300 MG Tablet PO (18:15)
[2019-03-29] MEDS: Carvedilol 6.25 MG Tablet PO (21:26)
[2019-03-30] VITALS (21 sets, daily range): BP systolic 117–155; BP diastolic 69–101; PULSE 89–105; RESP 14–18; TEMP 36.6–37; O2SAT 92–98
[2019-03-30 05:11] LABS: Absolute Lymphocyte Count 1.15 X10^3/ul (0.83-4.51); Absolute Neutrophil Count 8.1 X10^3/uL (2.0-7.7); Basophil# 0.02 X10^3/uL; Basophil% 0.2 % (0-1); Eosinophil# 0.31 X10^3/uL; Lymphocyte # 1.15 X10^3/ul (4.0); Lymphocyte % 11.1 % (19-41); Mean Corp Hgb Conc 32.6 g/gl (32-36); Mean Corpuscular Hgb 30.3 pg (27.0-32.0); Mean Corpuscular Volume 93.1 fL (80-94); Mean Platelet Vol. 11.6 fl (6.2-12.0); Monocyte# 0.78 X10^3/uL; Monocyte% 7.5 % (0-10); Neutrophil # 8.05 X10^3/uL (2.7-7.7); Neutrophil % 77.9 % (47-70); Platelet Count 147 K/mm3 (150-450); RBC Distribution Width CV 15.1 % (11.6-14.6); RBC Distribution Width SD 50.2 fl (35.1-43.9); Red Blood Count 4.62 M/mm3 (4.6-6.2); White Blood Count 10.3 K/mm3 (4.4-11.0)
[2019-03-30 05:24] LABS: POSITIVE COUNT NO; POSITIVE DIFFERENTIAL NO; POSITIVE MORPHOLOGY NO
[2019-03-30 05:33] LABS: Anion Gap 8 (5-15); BUN 29 mg/dL (7-18); BUN/Creat Ratio 24.4 RATIO (10-20); Calcium,Total 8.5 mg/dL (8.5-10.1); Chloride 104 mmol/L (98-107); Creatinine, Serum 1.19 mg/dL (0.70-1.30); EST Glomerular Filtration Rate 67 mL/min (>60); Est Glom Filt Rate - Afr Amer 81 mL/min (>60); Estimated Creatinine Clearance 74.27 ml/min; Glucose 111 mg/dL (74-106); Potassium 3.5 mmol/L (3.5-5.1); Sodium Level 142 mmol/L (136-145)
[2019-03-30 05:47] LABS: International Normalized Ratio 1.4; Prothrombin Time (Protime)PT. 16.6 SECONDS (11.7-14.9)
--- NOTE | 2019-03-30 05:55 | EKG12_ITS ---
Test Reason : AM EKG Blood Pressure : / mmHG Vent. Rate : 100 BPM Atrial Rate : 100 BPM P-R Int : 148 ms QRS Dur : 144 ms QT Int : 396 ms P-R-T Axes : 047 -21 018 degrees QTc Int : 510 ms Normal sinus rhythm Biatrial enlargement Right bundle branch block Left ventricular hypertrophy T wave abnormality, consider lateral ischemia Abnormal ECG Confirmed by RIVAS MARS, YARI ([id number]), senior editor ANA CRAIG ([id number]) on 03/31/2019 12:32:10 PM Referred By: Derrick Telles Confirmed By:YARI HATHAWAY MD
[2019-03-30] MEDS: Carvedilol 6.25 MG Tablet PO (06:08)
[2019-03-30] MEDS: Aspirin 81 MG TAB.CHEW PO (06:08)
[2019-03-30] MEDS: Lisinopril 5 MG Tablet PO (06:08)
[2019-03-30] MEDS: Clopidogrel Bisulfate 75 MG Tablet PO (06:08)
[2019-03-30] MEDS: hydrALAZINE 25 MG Tablet PO ×2 (06:08→09:48)
--- NOTE | 2019-03-30 07:56 | PN.CARD_ITS ---
Subjectve: Patient seen and evaluated. Objective: Vital Signs Temp Pulse Resp BP Pulse Ox 97.9 F 101 H 18 155/101 H 96 03/30/19 06:05 03/30/19 06:08 03/30/19 06:05 03/30/19 06:05 03/30/19 06:05 Oxygen Flow Rate (L/min) 2 Oxygen Delivery Method Room Air Weight: 225 lb 8.526 oz Body Mass Index (BMI) 33.0 Intake and Output for Last 24 Hours 03/28/19 03/29/19 03/30/19 23:59 23:59 23:59 Intake Total 840 / 840 240 / 480 240 / 240 Output Total 2900 / 2900 1775 / 1925 500 / 500 Balance -2060 / -2060 -1535 / -1445 -260 / -260 General: Awake, Alert, Oriented x 3 HEENT: PERRL, EOMI, Sclera Non Icteric Neck: Supple, Good ROM, No Lymph Node Enlargement Lungs: Clear to auscultation Cardiovascular: Regular Rhythm, Normal S1, Normal S2, No Murmurs, No Rubs, No Gallops Vascular: No Carotid Bruits, Normal Femoral Pulses, Normal Radial Pulses, Normal Dorsalis Pedal Pulse, Normal Posterior Tibial Pulses Abdomen: Bowel Sounds Present, Soft, Non Tender, No HSM, No Organomegaly Extremities: No Cyanosis, No Clubbing, No edema Neurological: No Focal Motor or Sensory Deficit Psych/Mental Status: Appropriate 03/30/19 04:40: WBC 10.3, RBC 4.62, Hgb 14.0, Hct 43.0, MCV 93.1, MCH 30.3, MCHC 32.6, RDW 15.1 H, RDW Differential 50.2 H, Plt Count 147 L, MPV 11.6, Immature Gran % (Auto) 0.300, Neut % (Auto) 77.9 H, Lymph % (Auto) 11.1 L, [place] % (Auto) 7.5, Eos % (Auto) 3.0, Baso % (Auto) 0.2, Absolute Neuts (auto) 8.1 H, Total Counted Not Reportable 03/30/19 04:40: PT 16.6 H, INR 1.4, APTT 36.0 03/30/19 04:40: Sodium 142, Potassium 3.5, Chloride 104, Carbon Dioxide 30.0, Anion Gap 8, BUN 29 H, Creatinine 1.19, Est GFR (MDRD) Af Amer 81, Est GFR (MDRD) Non-Af 67, BUN/Creatinine Ratio 24.4 H, Glucose 111 H, Calcium 8.5 Rhythm: EKG: ECHO: Stress Test: Cardiac Cath: PCI: CT Surgery: Holter monitor: EPS: PPM: CXR: Chest CT Scan: Medical Necessity - Tobacco Use Smoking Status: Former smoker Tobacco Use: Chew Assessment/Plan 1. Congestive heart failure-acute systolic * Patient appears to have presented with acute systolic congestive heart failure which is new. His blood pressure is noted to be markedly elevated and it is likely that his heart failure is on the basis of hypertensive heart disease. His echocardiogram demonstrates an ejection fraction of 35%, with stage I diastolic dysfunction, mild mitral and tricuspid regurgitation. * Recommendation would be to start him on Lasix 40 mg a day * Start MOIZ inhibitor * Start carvedilol 6.25 mg twice a day * Cardiac catheterization demonstrated the following: Normal left main coronary artery. Left anterior descending artery with mild diffuse disease. Left circumflex artery with mid 50 to 60% stenosis. Dominant large coronary right coronary artery with ectatic eccentric 30 to 40% proximal stenosis and distal high-grade stenosis noted in the posterolateral vessel.. * Global reduced left ventricular ejection fraction estimated at 40%. * Due to the diffuse nature of the disease as well as the fact that he has not been previously treated I would recommend aggressive medical therapy and interval stress testing. Depending on those results further recommendations will be made. * 2. Severe hypertension * Patient presented with severe hypertension unbeknownst to him. The above may be essential in nature but one may need to exclude aldosterone problems due to his hypokalemia * We will continue with the MOIZ inhibitor as well as a beta-jeremiah and appropriate potassium supplementation. * I suspect his troponin elevation is likely secondary to the above. * * * Thank you for allowing me to participate in the care of your patient. Please don't hesitate to call if any issues arise * Risk factor modification, adherence to medical therapy has been emphasized to him.
--- NOTE | 2019-03-30 08:10 | CL.D_ITS ---
Patient Name: ABIMAEL HERNANDEZ Study Date: 03/30/2019 Performing: Tim Ambrose MD Ht: 72 inches 183 cm : 1960 Wt: 225.2 lbs 102 kg Age: 59 Gender: male BSA: 2.24 PROCEDURE(S) PERFORMED KZ72-DAD/COR/LV CLINICAL PROFILE AND INDICATIONS Indications: Suspected CAD Heart Failure: NYHA Class: 2, Newly Diagnosed: Yes, Heart Failure Type: Systolic Stress/Imaging Stress/Image Study Performed: No CAD Presentations: No Sxs, no angina. CONCLUSIONS Diffuse disease noted in the circumflex artery and high-grade disease noted in the distal right coron tammy artery. Eccentric moderate disease noted in the proximal right coronary artery. Global left vic tricular systolic dysfunction. RECOMMENDATIONS Medical therapy DESCRIPTION OF PROCEDURE The patient arrived to the procedure lab. The risks and benefits of the procedure as well as a full d escription of our services here and current unavailability of surgical backup were fully explained to the patient and/or their significant other prior to the catheterization. The Timeout was completed, verifying the correct patient and procedure. The patient's procedural site was prepped and draped in the usual fashion. Local anesthetic was given subcutaneously to right radial region with Lidocaine 2% . Using a modified Seldinger technique, arterial access was obtained via the right radial artery, a 6 Fr sheath was inserted. Left Coronary Artery selective angiography was performed in multiple views u sing a 5 Fr. 4.0 [place] catheter. Right Coronary Artery selective angiography was then performed in mu ltiple views using a 5 Fr. 4.0 [place] catheter. Right Coronary Artery selective angiography was then p erformed in multiple views using a 5 Fr. JR 5 catheter. Left Ventriculography was performed in SINGH projection using a 5 Fr. [place] catheter. LV to AO pullback pressures were then rec orded.The arterial sheath was pulled and a TR Band was applied for hemostasis 12cc air CORONARY ANGIOGRAPHY DOMINANCE: Right Dominant LEFT HEART ASSESSMENT Left Ventricular Ejection Fraction: by LV Gram 40 % Global Hypokinesis - Mild Depressed Left Ventricular systolic function LEFT MAIN: Angiographically normal LEFT ANTERIOR DESCENDING ARTERY: Mild luminal irregularities less than 30% DISTAL LAD: Moderate luminal irregularities up to 50% CIRCUMFLEX ARTERY: MID CIRC: Moderate luminal irregularities up to 50% RIGHT CORONARY ARTERY: PROX RCA: Diffusely diseased up to 40 % RT PLV: 80 % Stenosis COMPLICATIONS No Complications PROCEDURE MEDICATIONS Versed 1 mg IV Fentanyl 50 mcg IV Versed 1 mg IV Oxygen: 2 L/min via nasal cannula Heparin diluted in 23cc Heparinized saline. Patient given 10cc IA of this solution. 03/30/2019 07:31:5 4 Verapamil 2.5mg, Ntg 100mcgs, 2000 units of Heparin diluted in 23cc Heparinized saline. Patient give n 10cc IA of this solution. 03/30/2019 07:31:54 SUMMARY OF HEMODYNAMIC DATA Time AIR REST ECG 07:11:38 AO 110/78 (93) SA 07:33:26 LV 108/8, 18 07:47:10 LV 124/4, 30 07:47:18 LV 121/2, 19 07:48:34 LVp 115/0, 17 07:48:38 AOp 110/62 (83) 07:48:43 Signed By Tim Ambrose MD On 03/30/2019 08:09:22 Tim Ambrose MD
[2019-03-30] MEDS: 0.9% Normal Saline 1,000 ML 75 ML IV (08:25)
--- NOTE | 2019-03-30 08:44 | DCINST_ITS ---
- Discharge Diagnoses Current Active Problems: Current Active and Chronic Problems Acute heart failure (Acute) Elevated troponin I level (Acute) Acute renal insufficiency (Acute) Hypertensive urgency (Acute) Acute kidney injury (Acute) You will use the following diet at home:: Calorie/Carbohydrate Controlled (specify 1200, 1400, etc) - 1800 ADA DIET, prediabetes, Cardiac Your food should be the consistency of: Regular Discharge Activity: Return to Normal Activity Weight Bearing Status: Weight bearing as tolerated Call your doctor if you observe: Fever of 101 or Higher, Numbness or Tingling, Inability to urinate, Inability to have a bowel movement, Shortness of breath, Fainting spells, Swelling in the ankles, Chest pain, Increased palpitations (irregular heartbeat), Calf discomfort, Uncontrolled pain Allergies/Adverse Reactions: Allergies No Known Allergies Allergy (Verified 03/27/19 09:47) Medications to take at Discharge Aspirin E.C. [Ecotrin] 81 mg PO DAILY@0800 #30 tab 03/29/19 Carvedilol [Coreg] 6.25 mg PO BID #60 tab 03/29/19 Furosemide [Lasix] 40 mg PO DAILY #30 tab 03/29/19 Clopidogrel Bisulfate [Plavix] 75 mg PO DAILY #30 tab 03/30/19 Lisinopril [Zestril] 10 mg PO DAILY #30 tab 03/30/19 Potassium Chloride [K-Dur] 20 meq PO DAILY #30 tab 03/30/19 The following prescriptions were given: hydrALAZINE [Apresoline] 25 mg PO TID #90 tab Transmission Status: Received by [facility]/pharmacy #[id number] Carvedilol [Coreg] 6.25 mg PO BID #60 tab Transmission Status: Received by [facility]/pharmacy #[id number] Aspirin E.C. [Ecotrin] 81 mg PO DAILY@0800 #30 tab Transmission Status: Received by [facility]/pharmacy #[id number] Furosemide [Lasix] 40 mg PO DAILY #30 tab Transmission Status: Received by [facility]pharmacy #[id number] Lisinopril [Zestril] 5 mg PO DAILY #30 tab Transmission Status: Received by [facility]/pharmacy #[id number] Primary Care Physician: Anthony Cabral Chi, MD [COURTESY STAFF PHYSICIAN] - Please follow up with your Primary Care Physician in: in 1-2 weeks for new onset HF Test Results: Test results from this visit will be discussed in further detail at your follow- up appointment, if applicable. Please Follow Up With: Tim Ambrose MD When: IN 3-4 WEEKS FOR Outpatient stress testand then Dr. Terry Please Follow Up With: Anthony Cabral Chi, MD
--- NOTE | 2019-03-30 09:01 | CASEMGMT ---
Insurance review for [facility] if transfer is recommended. [facility], [facility], [facility], [facility], [facility]. Ronak SCHROEDER BSN ACM
--- NOTE | 2019-03-30 09:15 | PCM.DC.SUM ---
Discharge Date and Diagnosis Date of Admission: 03/27/19 Date of Discharge: 03/30/19 - Primary Discharge Diagnosis Active and Suspected Problems Acute heart failure (Acute) Elevated troponin I level (Acute) Acute renal insufficiency (Acute) Hypertensive urgency (Acute) Acute kidney injury (Acute) Hospital Course and Treatment Summary of Care Provided: The patient is a 59 year old M who has not seen DrSalina for 14 years came to ED with progressive worsening of shortness of breath mainly dyspnea on exertion for about 1 month. Patient also noticed weight gain and leg swelling noticed by her fianc?. Patient denies orthopnea or PND. Chest x-ray in ED shows mild interstitial prominence but no focal consolidation. EKG shows sinus tachycardia at 108 bpm, right bundle branch block with left atrial enlargement. [] In ED, patient was found hypertensive urgency, BP 202/136, heart rate 56 but no tachypnea or hypoxia. He got enalapril 1.25 mg IV in ER 1. New onset heart failure, exact type and etiology unclear: Patient is being admitted in PCU. Echo reported as EF 35% with moderate global hypokinesis. Stage I diastolic dysfunction. Left atrium and right atrium moderately enlarged. Mild 1+ eccentric MR. Mild TR with RVSP 38 mmHg. Normal aortic valve and pulmonic valve. Cardiac cath was done on 03/30/2018 and reported as LAD, proximal less than 30%, distal 50%. Mid circumflex 50%. RCA proximal diffuse to 40%. Right PLV 80% stenosis. EF by LV gram 40%. Mild global hypokinesis. Based on the cardiac cath findings, medical treatment was advised. Follow-up nuclear scan as an outpatient on April 14, 2019. Patient has been diuresed well. Hold the Lasix for tomorrow cardiac cath. Increase Coreg to 6.25 mg. Consider MOIZ/ARB at the time of discharge. BNP 1200. Fasting lipid profile reported as LDL 78, triglyceride 125, HDL 26. TSH normal. 2. Elevated troponin enzyme possible demand ischemia: Serial troponins are elevated 0.158 0.159 and 0.176. Possible related to heart failure/acute kidney injury. Nitro sublingual for chest pain as needed the patient denies chest pain the last 3 to 4 weeks. 3. Hypertensive urgency: Started on hydralazine and nitrate. Hydralazine 10 mg IV q. 6 hourly as needed for systolic blood pressure more than 180 or diastolic more than 100 mmHg. Pressure is controlled. 4. Diabetes: Glucose in BMP is 220. Patient has symptoms of polyuria and polydipsia. Has been drinking a lot of pops. A1c 5.8 history of prediabetes. Accu-Chek before meals and at bedtime and cover with Humalog sliding scale. UA is negative off glucose, ketones and protein. Urine negative. 5. Most likely CKD stage III with prerenal azotemia/fluid overload from CHF: BUN/creatinine 26/1.6. Mild hypokalemia: Potassium being replaced. BUN/creatinine 22/1.3. Does not meet criteria for acute kidney injury. BUN/creatinine 20/1.3. Mild hypokalemia secondary to diuretics: Potassium replaced. 6. Recent right-sided back pain 2 to 3 weeks ago: Resolved. KUB x-ray negative. DVT prophylaxis: Lovenox 40 subcu daily Discharge medication reconciliation done. Discharge follow-up instructions completed. Discharge process discussed with the patient and all questions were answered to patient's satisfaction. Prescription for aspirin, Plavix, Coreg, lisinopril, Lasix and potassium chloride given to the patient. Follow with PCP Dr. Cbaral in 1 to 2 weeks. Follow-up with your computer forensics analyst as a scheduled. Total time spent, exact 35 minutes on discharge meds reconciliation, examination, review of imaging and blood test and discussion with the patient on follow-up instructions. Subjective: Seen and examined. Patient had cardiac cath today with right radial artery approach. No hematoma. No significant symptoms of chest pain or shortness of breath. Leg swelling improved. Discussed with the patient's fianc? at room in detail about congestive heart failure, findings of cardiac cath including multiple pilot station coronary artery disease and prediabetes. Emphasized the importance of follow-up with PCP and computer forensics analyst. - Physical Exam General: Alert, Oriented x3, Cooperative HEENT: Atraumatic, PERRLA, EOMI, Normocephalic Neck: Supple, No JVD, Negative Carotid Bruits Lungs: Clear to auscultation, No rhonchi, No wheeze, No rales, Diminished Cardiovascular: Regular rate, Regular Rhythm, Normal S1, Normal S2, No murmurs Abdomen: Bowel Sounds Present, Soft, Non Tender, Non-Distended Extremities: No edema, Capillary Refill Less than 3 Seconds Skin: No rashes, No breakdown Musculoskeletal: No Tenderness to Palpation of Joints or Extremities, Arthritic Changes Neurological: Cranial nerves II-XII grossly intact, Deep Tendon Reflexes 2+/4 and Symmetrical, Neuro grossly intact, Motor Exam 5/5 strength throughout Psych/Mental Status: Normal Affect, Appropriate Vital Signs Temp Pulse Resp BP Pulse Ox 98.7 F 102 H 14 130/73 H 96 03/29/19 08:58 03/29/19 08:58 03/29/19 08:58 03/29/19 08:58 03/29/19 08:58 Oxygen Flow Rate (L/min) 2 Oxygen Delivery Method Room Air Weight: 224 lb 10.417 oz Body Mass Index (BMI) 33.0 Intake and Output for Last 24 Hours 03/27/19 03/28/19 03/29/19 23:59 23:59 23:59 Intake Total 480 / 480 840 / 840 240 / 240 Output Total 2900 / 2900 375 / 375 Balance 480 / 480 -2060 / -2060 -135 / -135 Laboratory Tests Past 24 Hrs 03/29/19 05:05 Sodium 141 Potassium 3.1 L Chloride 104 Carbon Dioxide 29.0 Anion Gap 8 BUN 20 H Creatinine 1.23 Estim Creat Clear Calc 71.85 Est GFR (MDRD) Af Amer 78 Est GFR (MDRD) Non-Af 64 BUN/Creatinine Ratio 16.3 Glucose 111 H Calcium 8.5 Magnesium 1.7 Troponin I 0.177 H POC Glucose 03/29/19 03/28/19 03/28/19 06:33 21:20 15:50 POC Glucose 98 114 H 123 H Discharge Activity: Return to Normal Activity Weight Bearing Status: Weight bearing as tolerated Call your doctor if you observe: Fever of 101 or Higher, Numbness or Tingling, Inability to urinate, Inability to have a bowel movement, Shortness of breath, Fainting spells, Swelling in the ankles, Chest pain, Increased palpitations (irregular heartbeat), Calf discomfort, Uncontrolled pain Home Medications: Medications to take at Discharge Aspirin E.C. [Ecotrin] 81 mg PO DAILY@0800 #30 tab 03/29/19 Carvedilol [Coreg] 6.25 mg PO BID #60 tab 03/29/19 Furosemide [Lasix] 40 mg PO DAILY #30 tab 03/29/19 Clopidogrel Bisulfate [Plavix] 75 mg PO DAILY #30 tab 03/30/19 Lisinopril [Zestril] 10 mg PO DAILY #30 tab 03/30/19 Potassium Chloride [K-Dur] 20 meq PO DAILY #30 tab 03/30/19 Following Prescrptions Were Given to Patient: Carvedilol [Coreg] 6.25 mg PO BID #60 tab Prescription Printed Aspirin E.C. [Ecotrin] 81 mg PO DAILY@0800 #30 tab Prescription Printed Potassium Chloride [K-Dur] 20 meq PO DAILY #30 tab Prescription Printed Furosemide [Lasix] 40 mg PO DAILY #30 tab Prescription Printed Clopidogrel Bisulfate [Plavix] 75 mg PO DAILY #30 tab Prescription Printed Lisinopril [Zestril] 10 mg PO DAILY #30 tab Prescription Printed Primary Care Physician: Anthony Cabral Chi, MD [COURTESY STAFF PHYSICIAN] - Please follow up with your Primary Care Physician in: in 1-2 weeks for new onset HF Please Follow Up With: Abebe Terry MD When: IN 3-4 WEEKS FOR Outpatient stress test and Heart failure Medical Necessity - Tobacco Use Smoking Status: Former smoker Tobacco Use: Chew Meaningful Use Info Meaningful Use Diagnoses (Choose all that apply): CHF - AMI Documented LVEF (%): 35 - CHF MOIZ/ARB ordered at discharge?: Yes Documented LVEF (%): 35 Code Visit Inpatient E&M: 73176 Disch Hosp
--- NOTE | 2019-03-30 12:27 | PCM.PN.BLA ---
Progress Note Patient will keep 04/16/2019 appointment at 10:[address] Ambrose. At that time, stress testing will be ordered along with shelter follow-up.
== END 2019-03-30 14:29 | disposition home or self-care (01) | DRG 286 ==
LOC: ED 11:44 → PCU 11:55
PROVIDERS: Internal Medicine Cardiovascular Disease; Admitting Provider Internal Medicine; Emergency Provider Emergency Medicine; Referring Provider Internal Medicine; Visit Provider Internal Medicine
DX: I11.0 Hypertensive heart disease with heart failure (principal); I50.21 Acute systolic (congestive) heart failure; I24.8 Other forms of acute ischemic heart disease; I16.0 Hypertensive urgency; I25.10 Atherosclerotic heart disease of native coronary artery without angina pectoris; E87.6 Hypokalemia; R73.03 Prediabetes; Z72.0 Tobacco use
CPT/HCPCS: 36415; 71046; 74018; 80048; 80053; 80061; 81001; 82962; 83036; 83735; 83880; 84443; 84484; 85025; 85610; 85730; 93005; 93306; 93458; 97802; 99152; 99153; 99285; 99406; J7030; Q9957; A4216; C1769; C1894; J1940; Q9967

== ENCOUNTER → 2019-04-07 | Outpatient (CLI) | payer BC, SELFPAY ==
[2019-03-27 12:17] VITALS: BMI 33.0
[2019-04-07 18:14] LABS: Absolute Lymphocyte Count 1.25 X10^3/ul (0.83-4.51); Basophil# 0.01 X10^3/uL; Basophil% 0.2 % (0-1); Eosinophil# 0.24 X10^3/uL; Eosinophils% 4.1 % (0-5); Hematocrit 44.4 % (40-54); Hemoglobin 14.5 g/dl (13.0-16.5); Lymphocyte # 1.25 X10^3/ul (4.0); Lymphocyte % 21.4 % (19-41); Mean Corp Hgb Conc 32.7 g/gl (32-36); Mean Corpuscular Hgb 30.1 pg (27.0-32.0); Mean Corpuscular Volume 92.1 fL (80-94); Mean Platelet Vol. 11.4 fl (6.2-12.0); Monocyte# 0.38 X10^3/uL; Monocyte% 6.5 % (0-10); Neutrophil # 3.95 X10^3/uL (2.7-7.7); Neutrophil % 67.6 % (47-70); Platelet Count 214 K/mm3 (150-450); RBC Distribution Width SD 46.4 fl (35.1-43.9); Red Blood Count 4.82 M/mm3 (4.6-6.2); White Blood Count 5.8 K/mm3 (4.4-11.0)
[2019-04-07 18:17] LABS: POSITIVE COUNT NO; POSITIVE DIFFERENTIAL NO; POSITIVE MORPHOLOGY NO
[2019-04-07 18:37] LABS: ALB/GLOB Ratio 0.9 RATIO (0.9-2.4); AST(SGOT) 30 U/L (15-37); Alanine Aminotransfer ALT/SGPT 35 U/L (16-61); Albumin, Serum 3.6 g/dL (3.2-5.0); Alkaline Phosphatase 69 U/L (45-117); Anion Gap 8 (5-15); BUN 26 mg/dL (7-18); BUN/Creat Ratio 19.3 RATIO (10-20); Calcium,Total 9.1 mg/dL (8.5-10.1); Chloride 105 mmol/L (98-107); Creatinine, Serum 1.35 mg/dL (0.70-1.30); EST Glomerular Filtration Rate 58 mL/min (>60); Est Glom Filt Rate - Afr Amer 70 mL/min (>60); Globulin 3.9 g/dL (2.2-4.2); Glucose 84 mg/dL (74-106); PSA,Total - Annual Screen 1.19 ng/mL (0.00-4.00); Potassium 4.3 mmol/L (3.5-5.1); Protein, Total 7.5 g/dL (6.4-8.2); Sodium Level 141 mmol/L (136-145); Thyroid Stim Hormone (TSH) 1.52 uIU/mL (0.358-3.74); Uric Acid 8.9 mg/dL (3.5-7.2)
[2019-04-08 11:13] LABS: Hepatitis C Antibody Non-Reactive (Nonreactive)
== END | disposition home or self-care (01) ==
LOC: POLAB3 16:49
PROVIDERS: Visit Provider Family Medicine Geriatric Medicine
DX: Z00.00 Encounter for general adult medical examination without abnormal findings (principal); M10.9 Gout, unspecified; Z12.5 Encounter for screening for malignant neoplasm of prostate; Z13.89 Encounter for screening for other disorder
CPT/HCPCS: 36415; 80053; 84153; 84443; 84550; 85025; 86803; G0103

== ENCOUNTER → 2019-04-26 | Outpatient (CLI) | payer BC, SELFPAY ==
[2019-03-27 12:17] VITALS: BMI 33.0
[2019-04-23 15:27] VITALS: BMI 30.5
--- NOTE | 2019-04-26 12:26 | STEWCON_ITS ---
Reason For Study: CAD/ASHD Stress Results Protocol: Sung Protocol WITH DEFINITY Maximum Predicted HR: 162 bpm Target HR: 138 bpm % Maximum Predicted HR: 93 % DurationHeart Rate Stage (mm:ss) (bpm) BP Comment BASELINE 77 148/98 1 CC DEFINITY STAGE 1 3:00 130 182/102INCREASED SOB STAGE 2 3:00 150 222/1041 CC DEFINTY RECOVERY 91 150/92 Stress Duration: 6:00 mm:ss Maximum Stress HR: 150 bpm Baseline Echocardiogram Findings The estimated ejection fraction is 35 %. Moderately dilated left ventricle. Stress Echo Wall motion Data Resting WM Intermediate WM Stress WM Resting Wall Motion Wall Motion Stress Infero-Basal: Severely Mid-Lateral : Severely Hypokinetic. Hypokinetic. Basal inferoseptal: Severely Hypokinetic. EKG Data The baseline ECG displays normal sinus rhythm. The patient exercised according to the regular Sung protocol for a total duration of 6:00. The maximum heart rate attained was 150 beats per minute. This was 92% of maximum predicted heart rate. The patient exercised into stage 3 of the Sung protocol. At peak exercise, upsloping ST changes only were noted, which did not meet the criteria for ischemia. No clinical angina was noted. Interpretation Summary The estimated ejection fraction is 35 %. Baseline Mid-Lateral : Severely Hypokinetic. Baseline Infero-Basal: Severely Hypokinetic. Basal inferoseptal: Severely Hypokinetic at peak exercise. Abnormal, adequate, treadmill echocardiogram. Positive for ischemia by echocardiographic criteria. The patient had baseline severe inferior basal hypokinesis, which appeared to remain the same at peak exercise, however his mid inferolateral wall appeared to be hypokinetic. Difficult echo windows requiring Definity agent may complicate LV analysis. Hypertensive blood pressure response to exercise. Below average exercise capacity for age. Baseline EF around 35%. Final LVEF around 35%. No anginal symptoms. Rare PVC noted. No complications.. The study was technically difficult. Contrast injection was performed. Ordering Physician: Kirby Rudolph Referring Physician: Kirby Rudolph Performed By: Lucius Suarez RCS
== END | disposition home or self-care (01) ==
PROVIDERS: Family Provider Family Medicine Geriatric Medicine; PCP Family Medicine Geriatric Medicine; Referring Provider Nurse Practitioner Family; Visit Provider Nurse Practitioner Family
DX: I25.10 Atherosclerotic heart disease of native coronary artery without angina pectoris (principal)
CPT/HCPCS: 93017; 93350; Q9957; A4216; C8928

== ENCOUNTER → 2019-05-06 | Outpatient (CLI) | payer BC, SELFPAY ==
[2019-04-23 15:27] VITALS: BMI 30.5
--- NOTE | 2019-05-07 09:11 | STRESSREP ---
Stress Test Report Date: 05-07-19 Indications: CAD Consent: Per patient Procedure: Rest-Rest thallium viability study The patient underwent a rest rest thallium viability study. He received 4.3 mCi of thallium. Subsequent SPECT thallium images were obtained at 4 hours and at 24 hours. The patient was reported as tolerating the procedure well. Interpretation: 4-hour SPECT thallium imaging demonstrated diminished myocardial perfusion/tracer uptake in portions of the basal inferoseptal, basal inferior, basal inferolateral segments. 24-hour SPECT thallium imaging demonstrated increased myocardial perfusion/tracer uptake in the aforementioned areas. Impression: Rest-Rest (4-hour and 24-hour SPECT thallium imaging) viability study demonstrates areas of diminished myocardial perfusion/tracer uptake in portions of the basal inferior septal, basal inferior, basal inferolateral segments at 4 hours which appears to improve at 24 hours suggesting findings compatible with underlying myocardial viability in the aforementioned areas. This note was generated using a voice recognition system and there may be incorrect words, spelling or punctuation that were not noted when reviewing the office note prior to saving.
== END | disposition home or self-care (01) ==
LOC: NM 07:57
PROVIDERS: Family Provider Family Medicine Geriatric Medicine; PCP Family Medicine Geriatric Medicine; Referring Provider Internal Medicine Cardiovascular Disease; Visit Provider Internal Medicine Cardiovascular Disease
DX: I25.5 Ischemic cardiomyopathy (principal); I25.10 Atherosclerotic heart disease of native coronary artery without angina pectoris; I50.9 Heart failure, unspecified; R74.8 Abnormal levels of other serum enzymes; N28.9 Disorder of kidney and ureter, unspecified; I16.0 Hypertensive urgency
CPT/HCPCS: 78451; A9505

== ENCOUNTER 2019-05-19 07:46 | Day surgery (SDC) | payer BC, SELFPAY ==
[2019-04-23 15:27] VITALS: BMI 30.5
[2019-05-14 13:18] LABS: Hemoglobin 13.1 g/dL (13.0-16.5); Mean Corp Hgb Conc 32.8 g/dL (32-36); Mean Corpuscular Hgb 30.5 pg (27.0-32.0); Mean Corpuscular Volume 93.2 fL (80-94); Mean Platelet Vol. 10.9 fl (6.2-12.0); Platelet Count 144 K/mm3 (150-450); RBC Distribution Width CV 12.9 % (11.6-14.6); RBC Distribution Width SD 44.2 fl (35.1-43.9); Red Blood Count 4.29 M/mm3 (4.6-6.2); White Blood Count 4.5 K/mm3 (4.4-11.0)
[2019-05-14 13:33] LABS: International Normalized Ratio 1.2; Prothrombin Time (Protime)PT. 14.7 SECONDS (11.7-14.9)
[2019-05-14 13:34] LABS: Partial Thromboplast Time 34.7 Seconds (24.1-36.2)
[2019-05-14 13:42] LABS: Anion Gap 3 (5-15); BUN 22 mg/dL (7-18); BUN/Creat Ratio 16.9 RATIO (10-20); Calcium,Total 9.1 mg/dL (8.5-10.1); Chloride 106 mmol/L (98-107); EST Glomerular Filtration Rate 60 mL/min (>60); Est Glom Filt Rate - Afr Amer 73 mL/min (>60); Glucose 73 mg/dL (74-106); Potassium 4.4 mmol/L (3.5-5.1); Sodium Level 141 mmol/L (136-145)
[2019-05-19] VITALS (26 sets, daily range): BP systolic 117–175; BP diastolic 57–98; PULSE 66–97; RESP 11–20; TEMP 36.6–37.1; O2SAT 94–98; BMI 29.2; BMI 29.3
--- NOTE | 2019-05-19 11:16 | CL.I_ITS ---
Patient Name: ABIMAEL HERNANDEZ Study Date: 05/19/2019 Performing: Abebe Terry MD Ht: 71 inches 180.34 cm : 1960 Wt: 209.44 lbs 95 kg Age: 59 Gender: male BSA: 2.15 PROCEDURE(S) PERFORMED [id number] W OR WO PTCA, SINGLE CORONARY ARTERY [id number] W OR WO PTCA, SINGLE CORONARY ARTERY [id number] W OR WO PTCA, EACH ADD'L ARTERY, SAME MAJOR [id number], EACH ADD'L CORONARY ART, SAME MAJOR CLINICAL PROFILE AND CO-MORBIDITIES Indications: Stable Known CAD, Cardiomyopathy, LV Dysfunction, New Onset Angina <= 2 months Heart Failure: NYHA Class: 2, Newly Diagnosed: Yes, Heart Failure Type: Systolic Stress/Imaging Date: 05/07/2019 Angina Classification Anginal Classification w/in 2 Weeks: CCS III CAD Presentations: Unstable angina. Other: Dyspnea on exertion Comorbidities/Risk Factors: Hypertension Dyslipidemia CONCLUSIONS Successful PTCA/JEMIMA mid LCX with a 2.5 x 24 Promus Synergy, post dilated with a 2.5 x 12 NC Balloon; 85%-->0%, no dissection. Successful PTCA/JEMIMA mid RPL branch with a 2.25 x 12 Promus Synergy; 85%-->0%, no dissection. Successful PTCA/JEMIMA mid RCA with a 4.0 x 24 Promus Synergy, post dilated with a 4.0 x 8 NC Balloon; 7 5%-->0%, no dissection. Successful PCI with PTCA to the ostial PL Branch #1 with a 2.0 x 8 balloon; 85%-->50%, no dissection. 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 Repeat echo after cardiac rehab. Follow up with Dr. Ambrose DESCRIPTION OF PROCEDURE The patient arrived to the procedure lab. The risks and benefits of the procedure as well as a full d escription of our services here and current unavailability of surgical backup were fully explained to the patient and/or their significant other prior to the catheterization. The Timeout was completed, verifying the correct patient and procedure. The patient's procedural site was prepped and draped in the usual fashion. Local anesthetic was given subcutaneously to right groin region with Lidocaine 2%. Using a modified Seldinger technique, arterial access was obtained via the right femoral artery, a 6 Fr sheath was inserted.. The images were reviewed and options discussed. A decision was then made to proceed with an Intervention, IVUS or other adjunct procedure. Arterial sheath was exchanged for a 6 Fr, 45 cm Sheath. EBU 3.5 Guide catheter was inserted and e ngaged into the LCA. BMW Guide wire was advanced to the Circumflex. 2.0 x 12 Balloon catheter was adv anced across lesion in the circumflex, mid. PTCA balloon inflated at 10 atms for 8 secs. PTCA balloon inflated at 10 atms for 9 secs. PTCA balloon inflated at 10 atms for 8 secs. Angiogram performed pos t balloon dilatation. 2.5 x 24 synergy Drug Eluting stent was advanced across the lesion in the circu mflex, mid. Angiogram performed post stent deployment. HS II Guide catheter was inserted and engaged into the RCA. BMW Guide wire was advanced to the RCA. 2.0 x 12 emerge Balloon catheter was advanced a cross lesion in the PL branch, mid. PTCA balloon inflated at 6 atms for 8 secs. PTCA balloon inflated at 10 atms for 8 secs. 2.25 x 12 synergy Drug Eluting stent was advanced across the lesion in the PL branch, mid. Angiogram performed post stent deployment. 4.0 x 24 Synergy Drug Eluting stent was advanced across the lesion in the right coronary, proximal. 4.0 x [address] NC [address] ter was advanced across lesion in the right coronary, proximal. PTCA balloon inflated at 12 atms for 10 secs. PTCA balloon inflated at 14 atms for 9 secs. PTCA balloon inflated at 14 atms for 8 secs. PT CA balloon inflated at 15 atms for 9 secs. Angiogram performed post stent deployment. 2.0x12 Emerge B alloon catheter was advanced across lesion in the PL branch, mid. 2.0 x 8 emerge Balloon catheter was advanced across lesion in the PL branch ostial PTCA balloon inflated at 6 atms for 9 secs. PTCA bal loon inflated at 8 atms for 6 secs. PTCA balloon inflated at 8 atms for 60 secs. Angiogram performed post balloon dilatation. Arterial sheath was exchanged for a 6 Fr, 11 cm Sheath. The arterial sheath was sutured in place and capped INTERVENTION INFORMATION LESION SITE: Circumflex (Mid) Lesion Complexity: High/C, lesion at bifurcation: No, thrombus present: No, lesion length: 24 mm, cul prit lesion: Yes Pre Stenosis: 85 % Pre intervention SAL flow: 3 PROCEDURE: Drug Eluting Stent with pre and post dilatation Post Stenosis: 0 % Post intervention SAL flow: 3 Lesion Devices: Medtronic 6 Fr EBU3.5 100cm Guide Catheter Foreman .014 BMW [place] Straight 190cm Donald Sci EMERGE MR 2.00x12 BALLOON Donald Sci Synergy MR JEMIMA 2.50x24 LESION SITE: RPL (1st) Lesion Complexity: Non-High/Non-C, lesion at bifurcation: Yes, thrombus present: No, lesion length: 1 2 mm, culprit lesion: No Pre Stenosis: 85 % Pre intervention SAL flow: 3 PROCEDURE: Drug Eluting Stent with pre dilatation. Post Stenosis: 0 % Post intervention SAL flow: 3 Lesion Devices: Foreman .014 BMW [place] Straight 190cm Medtronic 6 Fr HSII 100cm Guide Catheter Donald Sci Synergy MR JEMIMA 2.25x12 LESION SITE: RCA (Proximal) Lesion Complexity: High/C, lesion at bifurcation: No, thrombus present: No, lesion length: 24 mm, cul prit lesion: No Pre Stenosis: 75 % Pre intervention SAL flow: 3 PROCEDURE: Drug Eluting Stent with pre and post dilatation Post Stenosis: 0 % Post intervention SAL flow: 3 Lesion Devices: Foreman .014 [employer] [place] Straight 190cm Medtronic 6 Fr HSII 100cm Guide Catheter Donald Sci Synergy MR JEMIMA 2.25x12 Donald Sci Synergy MR JEMIMA 4.00x24 Donald Sci NC EMERGE MR 4.00x08 BALLOON LESION SITE: RPL (1st) Lesion Complexity: High/C, lesion at bifurcation: Yes, thrombus present: No, culprit lesion: No Pre Stenosis: 85 % Pre intervention SAL flow: 3 PROCEDURE: Balloon Angioplasty Post Stenosis: 50 % Post intervention SAL flow: 3 Lesion Devices: Foreman .014 [employer] [place] Straight 190cm Donald Sci EMERGE MR 2.00x12 BALLOON Donald Sci EMERGE MR 2.00x08 BALLOON COMPLICATIONS No Complications PROCEDURE MEDICATIONS Oxygen: 2 L/min via nasal cannula Heparin 6000 unit(s) IV 05/19/2019 10:02:14 Nitro 200 mcg IC 05/19/2019 10:04:02 Nitro 300 mcg IC 05/19/2019 10:12:22 Nitro glycerin 25mg / 250ml D5W @ 10 mcg/min IVBP started 05/19/2019 10:13:13 Nitro 200 mcg IC 05/19/2019 10:20:50 Nitro 200 mcg IC 05/19/2019 10:35:07 Nitro 200 mcg IC 05/19/2019 10:50:07 IV Bolus: .9 NaCl 600 ml total 05/19/2019 11:00:29 SUMMARY OF HEMODYNAMIC DATA Time AIR REST ECG 08:07:32 ECG 09:20:01 AO 189/95 (133) SA 10:03:07 Signed By Abebe Terry MD On 05/19/2019 11:15:39 AM Abebe Terry MD
[2019-05-19] MEDS: 0.9% Normal Saline 1,000 ML 150 ML IV (11:42)
[2019-05-19] MEDS: Nitroglycerin Infusion 250 ML 12 MG IV (11:43)
[2019-05-19] MEDS: TITRATION PARAMETER CHANGE 1 EACH IV (12:25)
[2019-05-19 13:00] LABS: ACT Activated Clotting Time 191 sec (74-137)
[2019-05-19 13:15] LABS: ACT Activated Clotting Time 147 sec (74-137)
--- NOTE | 2019-05-19 14:22 | CRPHASE1_ITS ---
Patient Communication PHII Cardiac Rehab Discussed with Patient:: Yes Guide to Cardiac Rehab Given to Patient:: Yes Cardiac Rehab Facility Choice List Given to Patient:: Yes - chooses [facility] Choice Program [facility] CR PHII:: Communication Given to CR, Refer to [facility] Choice Program Other:: Communication Given to CR, With permission faxed order and referral information Quality Control Systems Manager:: Abebe Terry Refer Phase II Cardiac Rehab:: Yes Sessions:: 36 sessions - 3 days/wk, 12 weeks Risk Factors/Lifestyle Smoking Status: Never smoker Hx Hypertension: Yes Family History: Family History (Last Updated 04/23/19 @ 15:57 by Kirby Rudolph NP-C) Father Heart disease Hypertension Mother Heart disease, Onset Age: 65 Brother Heart disease, Onset Age: 60 Hospital Course Cardiac Cath Date:: 05/19/19 Medical/Surgical History Hypertension:: Yes Cardiac Rehabilitation Info Cardiac Rehabilitation Program Information: Cardiac Rehabilitation is important for patients like you who are recovering from a heart problem. Cardiac rehabilitation programs are recognized as integral to the continued care of the patient with coronary heart disease. The cardiac rehabilitation program is designed to optimize a patient's physical, psychological, and social functioning. Health resident care spec work in cardiac rehabilitation programs and assist you with getting the treatments you need to get stronger and healthier - like exercise, healthy eating habits, and medications. Cardiac rehabilitation has been show to help people with heart problems live longer and have better life enjoyment than people who do not go to cardiac rehabilitation. Please contact the Cardiac Rehabilitation Program at [facility] at in two weeks if you have not heard from them.
--- NOTE | 2019-05-19 14:24 | CRPH1.INSTRU ---
General Education CAD and cardiac anatomy and function:: Patient communicates acknowledgment Explanation of diagnoses and procedures:: Patient communicates acknowledgment Sign/Symptoms of FL:: Patient communicates acknowledgment Antiplatelet therapy: Patient communicates acknowledgment Proper use of NTG-SL: Not instructed Emergency procedures and activation of EMS: Patient communicates acknowledgment Compliance of all prescribed medications: Patient communicates acknowledgment Smoking Nicotine/Smoking Response Code:: Patient communicates acknowledgment Dyslipidemia Dyslipidemia Response Code:: Patient communicates acknowledgment Overweight/Obesity Overweight/Obesity:: Patient communicates acknowledgment Hypertension Recommendations Include:: Maintain BP <130/85, BP <130/80 if diabetic, DASH dietary guidelines, Decrease/maintain normal body weight, Moderation of ETOH Hypertension:: Patient communicates acknowledgment Heart Disease Heart Disease Response Code:: Patient communicates acknowledgment Diabetes Diabetes:: Patient communicates acknowledgment Metabolic Syndrome Metabolic Syndrome Response Code:: Patient communicates acknowledgment Sedentary Sedentary Response Code:: Patient communicates acknowledgment Stress Stress Response Code:: Patient communicates acknowledgment
[2019-05-19] MEDS: Losartan Potassium 50 MG Tablet PO (15:31)
--- NOTE | 2019-05-19 16:26 | DCINST_ITS ---
Discharge Diet: Low fat/ Low Cholesterol Discharge Activity: Return to Normal Activity May shower in (days): 1 Lifting Restrictions: 10 pounds and also avoid any pushing or pulling for 3 days after your test. Call your doctor if your incision/area has: Continuous Slow Oozing, Sudden Increased Bleeding, Increased Pain/ Swelling, Increased Redness, Foul Smelling Discharge, Swelling at the incision site Call your doctor if you observe: Fever of 101 or Higher, Shortness of breath, Chest pain Remove Dressing in (days):: 1 Cleanse incision/area with: Soap & Water Additional Dressing/Incision Instructions:: Keep the dressing (bandage) on until the next morning. You may then shower, but do not take a tub bath for 5 days after your test. It is normal to have some tenderness and discomfort at the puncture site. Sometimes bruising also occurs. However, if pain, numbness, or coldness occurs below the puncture site (in your leg, toes, arms or fingers) call your doctor at once. You may have a small, marble sized knot at the puncture site. This is normal. Do not rub it. It will go away in 4-6 weeks. Bleeding can occur from the area where the puncture was done. Blood may spurt or drip from the site. If blood spurts, apply pressure right away to stop bleeding and call 911. Although rare, bleeding into the tissue (hematoma) can also occur. If this happens, a large, firm area goose egg under the skin will appear. If any of these occur, lie down as flat as you can and have someone apply firm pressure to the cath site with a gauze pad or a clean washcloth for 10-15 minutes. Call 911 or go to the Emergency Department. Additional Instructions: you will need to stay on your plavix for at least one year prior to stopping We increased your Coreg to 12.5 mg twice a day and gave you an Rx for PRN NTG. Allergies/Adverse Reactions: Allergies No Known Allergies Allergy (Verified 04/23/19 15:27) Medications to take at Discharge aspirin 81 mg tablet,delayed release 81 mg PO DAILY@0800 #30 tab 04/23/19 clopidogrel 75 mg tablet 75 mg PO DAILY #30 tab 04/23/19 furosemide 40 mg tablet 40 mg PO DAILY #30 tab 04/23/19 potassium chloride ER 20 mEq tablet,extended release(part/cryst) 20 meq PO DAILY #30 tab 04/23/19 rosuvastatin 10 mg tablet 10 mg PO DAILY 04/23/19 lisinopril 20 mg tablet 20 mg PO BID #60 tab 04/28/19 Carvedilol [Coreg (Beta Sendy)] 12.5 mg PO BID #60 tab 05/20/19 Nitroglycerin (INPATIENT USE) [Nitrostat] 0.4 mg SUBLINGUAL Q5M PRN #25 tab.subl 05/20/19 The following prescriptions were given: Carvedilol [Coreg (Beta Sendy)] 12.5 mg PO BID #60 tab Transmission Status: Sent to [facility]30 Nitroglycerin (INPATIENT USE) [Nitrostat] 0.4 mg SUBLINGUAL Q5M PRN #25 tab.subl PRN Reason: Cardiac/Chest Pain Transmission Status: Pending to [facility] Primary Care Physician: Anthony Cabral Chi, MD [Primary Care Provider] - Test Results: Test results from this visit will be discussed in further detail at your follow- up appointment, if applicable. Please Follow Up With: Negin Anguiano PA When: 05/26 at 1130 Cardiac Rehabilitation Info Cardiac Rehabilitation Program Information: Cardiac Rehabilitation is important for patients like you who are recovering from a heart problem. Cardiac rehabilitation programs are recognized as integral to the continued care of the patient with coronary heart disease. The cardiac rehabilitation program is designed to optimize a patient's physical, psychological, and social functioning. Health pharmacy care coordinator work in cardiac rehabilitation programs and assist you with getting the treatments you need to get stronger and healthier - like exercise, healthy eating habits, and medications. Cardiac rehabilitation has been show to help people with heart problems live longer and have better life enjoyment than people who do not go to cardiac rehabilitation. Please contact the Cardiac Rehabilitation Program at [facility] at in two weeks if you have not heard from them.
[2019-05-19] MEDS: Furosemide 20 MG Tablet PO (19:59)
[2019-05-19] MEDS: Carvedilol 12.5 MG Tablet PO (21:51)
[2019-05-20] VITALS (12 sets, daily range): BP systolic 114–154; BP diastolic 44–87; PULSE 68–91; RESP 12–19; TEMP 36.8–37.4; O2SAT 93–97
[2019-05-20 04:27] LABS: Hematocrit 33.1 % (40-54); Hemoglobin 11.2 g/dL (13.0-16.5); Mean Corp Hgb Conc 33.8 g/dL (32-36); Mean Corpuscular Hgb 31.4 pg (27.0-32.0); Mean Corpuscular Volume 92.7 fL (80-94); Mean Platelet Vol. 10.4 fl (6.2-12.0); Platelet Count 104 K/mm3 (150-450); RBC Distribution Width CV 13.1 % (11.6-14.6); RBC Distribution Width SD 44.7 fl (35.1-43.9); Red Blood Count 3.57 M/mm3 (4.6-6.2); White Blood Count 4.8 K/mm3 (4.4-11.0)
[2019-05-20 04:32] LABS: ALB/GLOB Ratio 1.2 RATIO (0.9-2.4); AST(SGOT) 21 U/L (15-37); Alanine Aminotransfer ALT/SGPT 22 U/L (16-61); Albumin, Serum 3.6 g/dL (3.2-5.0); Alkaline Phosphatase 61 U/L (45-117); Anion Gap 6 (5-15); BUN 23 mg/dL (7-18); BUN/Creat Ratio 18.4 RATIO (10-20); Calcium,Total 8.5 mg/dL (8.5-10.1); Chloride 111 mmol/L (98-107); Creatinine, Serum 1.25 mg/dL (0.70-1.30); EST Glomerular Filtration Rate 63 mL/min (>60); Est Glom Filt Rate - Afr Amer 76 mL/min (>60); Estimated Creatinine Clearance 68.61 ml/min; Globulin 3.1 g/dL (2.2-4.2); Glucose 89 mg/dL (74-106); Protein, Total 6.7 g/dL (6.4-8.2); Sodium Level 145 mmol/L (136-145)
[2019-05-20] MEDS: Carvedilol 12.5 MG Tablet PO (08:37)
[2019-05-20] MEDS: Aspirin E.C. 81 MG Tablet PO (08:37)
[2019-05-20] MEDS: Clopidogrel Bisulfate 75 MG Tablet PO (08:38)
[2019-05-20] MEDS: Furosemide 20 MG Tablet PO (08:38)
[2019-05-20] MEDS: Losartan Potassium 50 MG Tablet PO (08:38)
--- NOTE | 2019-05-20 09:30 | PCM.PN.CARD ---
Subjectve: Patient doing well this morning. No 24-hour events. Telemetry negative. EKG shows normal sinus rhythm, no acute changes. Hemoglobin and creatinine are within nominal limits. Right groin is clean/dry/intact without evidence of thrills, bruits or hematoma. Objective: Vital Signs Temp Pulse Resp BP Pulse Ox 98.3 F 74 19 H 134/75 H 96 05/20/19 08:00 05/20/19 08:00 05/20/19 08:00 05/20/19 08:00 05/20/19 08:00 Oxygen Delivery Method Room Air Weight: 216 lb 14.958 oz Body Mass Index (BMI) 29.3 Intake and Output for Last 24 Hours 05/18/19 05/19/19 05/20/19 23:59 23:59 23:59 Intake Total 1393.40 / 1393.40 100 / 100 Output Total 1075 / 1075 500 / 500 Balance 318.40 / 318.40 -400 / -400 General: Awake, Alert, Oriented x 3 HEENT: PERRL, EOMI, Sclera Non Icteric Neck: Supple, Good ROM, No Lymph Node Enlargement Lungs: Clear to auscultation Cardiovascular: Regular Rhythm, Normal S1, Normal S2, No Murmurs, No Rubs, No Gallops Vascular: No Carotid Bruits, Normal Femoral Pulses, Normal Radial Pulses, Normal Dorsalis Pedal Pulse, Normal Posterior Tibial Pulses Abdomen: Bowel Sounds Present, Soft, Non Tender, No HSM, No Organomegaly Extremities: No Cyanosis, No Clubbing, No edema Neurological: No Focal Motor or Sensory Deficit 05/20/19 04:10: WBC 4.8, RBC 3.57 L, Hgb 11.2 L, Hct 33.1 L, MCV 92.7, MCH 31.4, MCHC 33.8, Plt Count 104 L, MPV 10.4 05/20/19 04:10: Sodium 145, Potassium 4.0, Chloride 111 H, Carbon Dioxide 28.0, Anion Gap 6, BUN 23 H, Creatinine 1.25, Est GFR (MDRD) Af Amer 76, Est GFR (MDRD) Non-Af 63, BUN/Creatinine Ratio 18.4, Glucose 89, Calcium 8.5, Total Bilirubin 0.50 Rhythm: EKG: ECHO: Stress Test: Cardiac Cath: PCI: CT Surgery: Holter monitor: EPS: PPM: CXR: Chest CT Scan: Medical Necessity - Tobacco Use Smoking Status: Never smoker Assessment/Plan 1. Coronary artery disease: Patient status post multivessel angioplasty and stenting of his left circumflex, PL branch, and proximal right coronary artery. I recommended the patient continue his current medications as outlined in the MRF. We increased his Coreg to 12.5 mg p.o. twice daily given his ischemic cardiomyopathy. He will undergo cardiac rehab for the next 3 months and then we will repeat his echocardiogram to determine if his LV function is improved with combination of medical therapy, exercise, and revascularization. If there is no improvement of his LV function, the patient may require a prophylactic AICD. 2. Hyperlipidemia: Continue antilipid therapy. Repeat lipid profile after cardiac rehab. 3. Patient may be discharged home and either follow-up with me or Dr. Ambrose. Code Visit Inpatient E&M: 12344 Subs Hosp L2
== END 2019-05-20 10:40 | disposition home or self-care (01) ==
LOC: CLSP 07:47 → ICU 11:07
PROVIDERS: Family Provider Family Medicine Geriatric Medicine; PCP Family Medicine Geriatric Medicine; Referring Provider Internal Medicine Cardiovascular Disease; Visit Provider Internal Medicine Cardiovascular Disease
DX: I25.10 Atherosclerotic heart disease of native coronary artery without angina pectoris (principal); I16.0 Hypertensive urgency; I11.0 Hypertensive heart disease with heart failure; I50.9 Heart failure, unspecified; N17.9 Acute kidney failure, unspecified; E66.9 Obesity, unspecified; Z68.30 Body mass index [BMI] 30.0-30.9, adult; E78.5 Hyperlipidemia, unspecified; I25.5 Ischemic cardiomyopathy; Z79.82 Long term (current) use of aspirin; Z79.899 Other long term (current) drug therapy; Z87.891 Personal history of nicotine dependence; F17.220 Nicotine dependence, chewing tobacco, uncomplicated
CPT/HCPCS: 36415; 80048; 80053; 85027; 85347; 85610; 85730; 92921; 92928; 92929; 93005; J7030; J7040; Q9967; C1725; C1769; C1874; C1887; C1894; C9600; C9601

== ENCOUNTER 2019-05-22 14:19 | Emergency (ER) | payer BC, SELFPAY ==
[2019-05-19 11:37] VITALS: BMI 29.3
[2019-05-22 14:19] VITALS: BP 161/96; PULSE 78; RESP 15; TEMP 36.6; O2SAT 97; BMI 29.5
[2019-05-22 14:58] VITALS: BP 167/88
--- NOTE | 2019-05-22 15:11 | ED.DCSUM_ITS ---
History of Present Illness Informant: Patient, Significant Other Onset: Today Context: Sudden Onset Timing: Continuous Quality: Fingers look white Location: All 10 fingers Current Severity: Severe Maximum Severity: Severe Worsened by: Nothing Relieved by: Nothing Associated Symptoms: Denies Narrative: 59-year-old male presents to the emergency department because he feels like his fingers are white and dusky. 3 days ago he had a cardiac catheterization performed at this facility by Dr. Terry. He has been doing well postoperatively. His noticed this about 20 minutes prior to arrival. He is not having any pain he does feel some tingling in all 10 fingers. He has not had any chest pain or shortness of breath. No Lightheadedness or dizziness. No nausea or vomiting. No diaphoresis. No difficulty swallowing. No abdominal pain or back pain. She denies weakness. Prior similar symptoms: No Recent Illness/Hospitalization: Yes <Oscar Camara - Last Filed: 05/22/19 16:16> <Yuan Huffman - Last Filed: 05/25/19 08:13> Chief Complaint: Numb/Ting Past Medical History Prior records reviewed: Yes Past Medical History: - - CAD Surgical History: no surgical history, - - cardiac cath with stents Lives: With Family Smoking Status: Never smoker - Family History Paternal Family History: Family History (Last Updated 04/23/19 @ 15:57 by OSWALDO Sanchez) Father Heart disease Hypertension Mother Heart disease, Onset Age: 65 Brother Heart disease, Onset Age: 60 Family History: Reports: Heart Disease - at the age of 72 [place] Maternal Family History: Family History (Last Updated 04/23/19 @ 15:57 by OSWALDO Sanchez) Father Heart disease Hypertension Mother Heart disease, Onset Age: 65 Brother Heart disease, Onset Age: 60 Family History: Reports: Heart Disease - 65 [place] <Oscar Camara - Last Filed: 05/22/19 16:16> - Family History Paternal Family History: Family History (Last Updated 04/23/19 @ 15:57 by OSWALDO Sanchez) Father Heart disease Hypertension Mother Heart disease, Onset Age: 65 Brother Heart disease, Onset Age: 60 Maternal Family History: Family History (Last Updated 04/23/19 @ 15:57 by OSWALDO Sanchez) Father Heart disease Hypertension Mother Heart disease, Onset Age: 65 Brother Heart disease, Onset Age: 60 <Huffman,Yuan - Last Filed: 05/25/19 08:13> - Allergies and Home Meds Allergies/Adverse Reactions: Allergies No Known Allergies Allergy (Verified 05/22/19 14:22) Primary Care Physician: Tim Guajardo MD [STAFF PHYSICIAN] - Anthony Cabral Chi, MD [Primary Care Provider] - Review of Systems All systems negative except as indicated Neurological: Reports: Parasthesia. Denies: Weakness <Oscar Camara - Last Filed: 05/22/19 16:16> General: Denies: Chills, Fever, Malaise, Sweats ENT: Denies: Right ear pain, Rhinorrhea Cardiovascular: Denies: Chest pain, Palpitations Respiratory: Denies: Dyspnea, Dyspnea on exertion, Orthopnea, Paroxysmal nocturnal dyspnea Gastrointestinal: Denies: Abdominal pain, Nausea, Vomiting, Diarrhea, Melena, Hematochezia Genitourinary: Denies: Dysuria, Hematuria, Frequency Musculoskeletal: Denies: Myalgias, Arthralgias, Neck pain, Back pain, Swelling, Extremity Pain Skin: Denies: Rash, Wounds Endocrine: Denies: Polyuria, Polydipsia Hematologic: Denies: Easy bruising, Easy bleeding Allergy: Denies: Uticaria, Swelling of the mouth, Swelling of the tongue <Huffman,Yuan - Last Filed: 05/25/19 08:13> Physical Exam Vital Signs/Narrative: Vital Signs Temp Pulse Resp BP Pulse Ox 05/22/19 14:58 167/88 H 05/22/19 14:19 97.9 F 78 15 161/96 H 97 General: Well nourished, Well developed, No Acute Distress Head: Normocephalic, Atraumatic Eyes: Perrl, EOMI ENT: Moist mucous membranes Neck: Supple, Nontender Cardiovascular: Regular rate, Regular rhythm Respiratory: No distress, CTA bilaterally, Chest nontender Abdomen: Soft, Nontender, Nondistended, Normal bowel sounds, No masses Back: Nontender Extremities: Nontender, No edema Skin: Normal color, No rash, Pallor - Patient has pale skin from his PIP his fingertips of all 10 fingers. There is no other areas noted that look pale. He has normal sensation. He has normal actively. They do feel somewhat cold. Capillary refill is diminished. Neurological: Alert, Oriented x3, Cranial nerves II-XII grossly intact, Normal Strength, Normal Sensation, Normal Gait <Oscar Camara - Last Filed: 05/22/19 16:16> Diagnostic/Tx/Re-eval - Medical Decision Making Patient has pale there is an pallor from his PIP to his fingertips of all 10 fingers. Radial and ulnar pulses are normal bilaterally. Carotid pulses normal bilaterally. He has normal active range of motion of all 10 fingers and of both upper extremities. He has slightly diminished capillary refill. His sensation is normal. We spoke with the on-call diffusion furnace operator Dr guajardo. He recommended we attempt to warm the patient's fingers and reevaluate. Patient's hands were wr apped in warm blankets symptoms significantly improved. We obtained basic laboratory work-up. This was unremarkable. He will see his diffusion furnace operator on Friday which is in 2 days. Advised to keep his hands warm until then or return for worsening symptoms. <JaxOscar - Last Filed: 05/22/19 16:16> - Medical Decision Making She presents with atraumatic pain, tingling and pallor to fingers of right and left upper extremity. Patient contacted cardiology who recommended he come to the emergency department. He denies symptoms for crest syndrome. He denies history of autoimmune disorder. He denies fever, chills night sweats. He denies discoloration of his digits during the winter. He denies cardiac or respiratory symptoms. He denies pain or pallor or numbness in his feet. Vital signs noted. He has pallor with difference in temperature involving the index, long, ring and little finger right and left hand. There is discoloration of the nailbeds. Sensation is intact. There is no difference between the fingers. Radial pulses 2+ right and left. Heart is regular. There is no murmur, gallop or rub. Lungs are clear to auscultation. Axillary, median, radial and ulnar function intact. Dr. Guajardo was contacted and he informed me that he may have had a cholesterol plaque break from the arch. More commonly affects the toes. Work-up was undertaken. Patient's work-up is unremarkable. Of note patient's pallor and symptoms resolved after he wrapped his fingers in warm blankets. Differential would include cholesterol plaque, ray nods phenomenon, autoimmune disorder. Patient was instructed to contact the cardiology office on Friday to be seen for follow-up. <Yuan Huffman - Last Filed: 05/25/19 08:13> ED Disposition <Oscar Camara - Last Filed: 05/22/19 16:16> <Yuan Huffman - Last Filed: 05/25/19 08:13> - Plan for ED Patient: Disposition: Home or Assisted Living Diagnosis: Pallor of extremity Instructions: Raynaud Disease Referrals: Anthony Cabral Chi, MD [Primary Care Provider] - Tim Guajardo MD [STAFF PHYSICIAN] -
[2019-05-22 15:31] LABS: Absolute Lymphocyte Count 0.83 X10^3/uL (0.83-4.51); Absolute Neutrophil Count 5.6 X10^3/uL (2.0-7.7); Basophil# 0.02 X10^3/uL; Basophil% 0.3 % (0-1); Eosinophil# 0.15 X10^3/uL; Eosinophils% 2.2 % (0-5); Hematocrit 35.4 % (40-54); Hemoglobin 12.1 g/dL (13.0-16.5); Lymphocyte # 0.83 X10^3/ul (4.0); Mean Corp Hgb Conc 34.2 g/dL (32-36); Mean Corpuscular Hgb 31.3 pg (27.0-32.0); Mean Corpuscular Volume 91.7 fL (80-94); Mean Platelet Vol. 10.1 fl (6.2-12.0); Monocyte# 0.32 X10^3/uL; Monocyte% 4.6 % (0-10); NRBC Flagged by Analyzer 0 % (0-5); Neutrophil # 5.55 X10^3/uL (2.7-7.7); Neutrophil % 80.6 % (47-70); Platelet Count 126 K/mm3 (150-450); RBC Distribution Width CV 13.1 % (11.6-14.6); RBC Distribution Width SD 43.5 fl (35.1-43.9); Red Blood Count 3.86 M/mm3 (4.6-6.2); White Blood Count 6.9 K/mm3 (4.4-11.0)
[2019-05-22 15:42] LABS: Anion Gap 5 (5-15); BUN 18 mg/dL (7-18); Calcium,Total 9.1 mg/dL (8.5-10.1); Chloride 106 mmol/L (98-107); EST Glomerular Filtration Rate 66 mL/min (>60); Est Glom Filt Rate - Afr Amer 80 mL/min (>60); Estimated Creatinine Clearance 71.47 ml/min; Glucose 88 mg/dL (74-106); Potassium 4.3 mmol/L (3.5-5.1); Sodium Level 141 mmol/L (136-145)
[2019-05-22 16:32] VITALS: BP 166/71; PULSE 70; RESP 16; O2SAT 97
== END 2019-05-22 16:33 | disposition home or self-care (01) ==
PROVIDERS: Emergency Provider Physician Assistant Medical; Family Provider Family Medicine Geriatric Medicine; PCP Family Medicine Geriatric Medicine
DX: R23.1 Pallor (principal); R20.2 Paresthesia of skin; I25.10 Atherosclerotic heart disease of native coronary artery without angina pectoris; Z95.5 Presence of coronary angioplasty implant and graft; Z79.82 Long term (current) use of aspirin; Z79.899 Other long term (current) drug therapy
CPT/HCPCS: 80048; 85025; 99285

== ENCOUNTER → 2019-05-27 | Outpatient (CLI) | payer BC, SELFPAY ==
[2019-05-24 11:40] VITALS: BMI 29.2
--- NOTE | 2019-05-27 09:57 | CR.ITP_ITS ---
General Information - General Information Admitting Diagnosis: PCI W/CORONARY STENT PLACEMENT - Education/Goals Barriers to Learning: Vision Impairment Individual Counseling: Initial Assessment: Nicotine/Smoking, Abnormal Cholesterol Levels, High Blood Pressure, Overweight/Obesity, A. Fasting Blood Sugar >100, B. Waist Circumference >35/Females >40/Males, Hypertension, Low HDL <40/Males or <50/Females, Sedentary Lifestyle, Family History of Heart Disease (under 65 years) Cardiac Rehabilitation Goals: 1. Maintain the individual as the primary focus of care. 2. To improve the patient's quality of life. 3. Identification of c ardiac risk factors and provide cardiac risk factor management. 4. Enhance the psychosocial status of the patient. 5. Reconditioning enough to allow the patient to resume customary activities. 6. Control symptoms of cardiac disease Scale for measuring improvement of personal goals: Enter appropriate number in Comments. 2 = Unchanged. 3 = Slightly Better. 4 = Moderate Improvement. 5 = Met my Goal Personal Goals: Initial Assessment: Improve management of stress and emotions, Improve energy level, Participate in home exercise program, Improve knowledge of cardiac disease, Improve muscle strength and endurance, Improve diet and eating habits (eat healthier), Control risk factors (learn risk factor modification) Exercise - Initial Assessment - Visit Date of Eval: 05/27/19 Session #:: 0 - START CR ON 06/04/2019 - Stages of Change Stages of Change:: Action - Physician Prescribed Exercise Modalities: Treadmill, Rower, Airdyne, NuStep Frequency (days/week): 2x/week for 12 weeks [36 sessions] Duration (Minutes):: 30-45 MIN Intensity: 60-80% age predicted maximum heart rate reserve METs - Progression: 0.5-1.0 MET, RPE 11-14 WEEK: 2.5 - Hypertension Do any of the following apply?: Yes, Medication - Intervention Home Exercise/Activity Goal:: Moderate Exercise 30 min/day x 5 days/wk - Education Goals:: Warm-up, RPE JASSI Scale, S/S, Safe Exercise, Self-Monitoring - Exercise Program Goals Exercise Program Goals: Aerobic Activity >30 min Nutrition - Initial Assessment - Program Goals Nutrition Program Goals: LDL <70. Total Cholesterol <200. HDL >45. Triglycerides <150. HgbA1C <7%. BMI <25 - Visit Date of Assessment:: 05/27/19 - Stages of Change Stages of Change:: Action - Lipids Total Cholesterol (mg/dL) Goal = less than 200 mg/dL: 129 HDL Cholesterol (mg/dL) Goal = less than 45 mg/dL: 26 LDL Cholesterol (mg/dL) Goal = less than 70 mg/dL: 78 Triglycerides (mg/dL) Goal = less than 150 mg/dL: 125 Lipid Medication: YES - Diabetes Diabetes:: No Insulin: No Non-Insulin Dependent?: No Do you monitor your blood sugar at home?: No - Weight Management Height: 5 ft 11 in Weight:: 213 lb Weight Goal (kg):: 200 lb Body Fat %:: 29.3 - Intervention Referral to dietitian:: Yes - OBESITY, HIGH BLOOD SUGARS IN HOSPITAL Referral to Diabetic Clinic:: No Will attend diet classes:: Yes - Education Gave educational materials for:: Relate diabetes to coronary artery disease, Healthy eating Tobacco - Initial Assessment - Program Goals Tobacco Program Goals: Complete smoking cessation. Attend education classes. Improve Knowledge Test score - Stage of Change Stages of Change:: Action - Learning Barriers Learning Barriers: Vision, Ready to Learn Total Score:: 17 - Family Support Do you have family support?: Yes - Tobacco Use Tobacco Use: Secondhand - 1-2 CHEWS DAILY, GLIRLFRIEND SMOKES Do you use smokeless tobacco?: Yes - Intervention Smoking Cessation Referral:: Yes Individual Education/Counseling:: Yes Education Schedule Given:: Yes - Education Attended class for:: Treating Heart Disease, How The Heart Works, What it means to have Heart Disease, How Coronary Artery Disease is Diagnosed, Heart Procedures, What Heart Medications Do, Risk Factors & Modifications, Living an Active Life, Nutrition, Emotions & Heart Disease, Stress Management & Relaxation, Sleep Disorders & Heart Disease Psychosocial - Initial Assess - Target Goals Target Goals: Assess presence or absence of depression. Using a valid screening tool, maximizes coping skills. Positive support system - Stages of Change Stages of Change:: Action - Psychosocial Test Tool Used:: HANDS Depression Questionnaire Self-reported stress:: NO Tests Completed: SF - 36 survey completed, Mood Scale Test Total Mood Screening Score:: 2 Self-Efficacy Score:: 8 - Intervention PS - Interventions: Yes Attend Stress Management Classes, Yes Uses Stress Management Skills, No Referral to Mental Health, No Referral to [facility] Case Management, No Referral to Physician - Education Gave educational materials for:: Coping techniques, Signs & symptoms of depression, Stress management, Relaxation techniques - Patient/Program Goal Preventative Medication(s):: Aspirin, MOIZ inhibitor, Clopidogrel, Beta jeremiah, Statin/lipid - Assistive Devices Assistive Devices:: None Fall Risk Assessed:: Yes Patient Health Questionnaire Initial Assessment 1. Little interest or pleasure in doing things: Several days 2. Feeling down, depressed, or hopeless: Several days 3. Trouble falling or staying asleep, or sleeping too much: Not at all 4. Feeling tired or having little energy: Not at all 5. Poor appetite or overeating: Not at all 6. Feeling bad about yourself -- or that you are a failure or have let yourself or your family down: Not at all 7. Trouble concentrating on things, such as reading the newspaper or watching television: Not at all 8. Moving or speaking so slowly that other people could have noticed. Or the opposite - being so fidgety or restless that you have been moving around a lot more than usual: Not at all 9. Thoughts that you would be better off , or of hurting yourself in some way: Not at all How difficult have these problems made it for you to do your work, take care of things at home, or get along with other people?: Not difficult at all Total Score: 2 [id number]-Q SV Test - Statements CAD is a disease of the arteries in the heart: False Examples of risk factors for heart disease: True Angina is chest pain or discomfort: I Don't Know The benefits of resistance training include: True Eating more meat and dairy products: False Anti-platelet medications such as aspirin are important: True The only effective way to manage stress: False An exercise warm-up slowly increases heart rate: True Prepared, processed foods usually have high sodium: True Depression is common after a heart attack: True The statin medications lower cholesterol: I Don't Know To control blood pressure, lower the amount of sodium: True If someone gets chest discomfort during walking: False Transfats are partially hydrogenated vegetable oils: I Don't Know Sleep apnea that is not treated increases the risk: False To control cholesterol, one should become a vegetarian: False Someone knows if he/she is exercising at the right level: True Diabetes cannot be prevented with exercise & health eating: False Stress is a large risk for heart attack: True A diet that can help lower blood pressure is rich in: True - Total Score Total Correct Responses: 17 Self-Efficacy Initial Assessment We would like to know how confident you are in doing certain activities. Please select your confidence level for:: Select your confidence level for the following using the scale 1-10 where 1 is not at all confident and 10 is totally confident. Your score is the average of all 6 responses. Fatigue: How confident are you that you can keep the fatigue caused by your disease from interfering with the things you want to do? Select Number: 8 Physical Discomfort or Pain: How confident are you that you can keep the physical discomfort or pain of your disease from interfering with the things you want to do? Select Number: 8 Emotional Distress: How confident are you that you can keep the emotional distress caused by your disease from interfering with the things you want to do? Select Number: 8 Other Symptoms or Health Problems: How confident are you that you can keep other symptoms or health problems from interfering with the things you want to do? Select Number: 8 Different Tasks and Activities: How confident are you that you can do the different tasks and activities needed to manage your health condition so as to reduce your need to see a doctor? Select Number: 9 Medication: How confident are you that you can do things other than just taking medication to reduce how much your illness affects your everyday life? Select Number: 10 Total Score:: 8 Nutrition Survey - Nutrition Survey Instructions Scoring Instructions: Scoring is as follows: Yes = 1 points. No = 0 point. Patient score that is >/=12 is considered to be at potential nutritional risk and could benefit from a referral to a registered dietitian. - Nutrition Survey Initial Have you lost >10 lbs over the past 2 months without trying?: No Are you following a special diet at home for diabetes, low fat, or low salt?: Yes Are you interested in meeting with a dietitian for help understanding your diet?: No Do you eat less than 3 meals a day?: No Do you eat fatty meats (dominguez, sausage, ribs, etc), fried foods, desserts, large amounts of salad dressings, margarine, butter, or cheese most days?: No Do you have food allergies? [Enter types in comment field]: No Do you eat in restaurants more than 3 times a week?: No Do you season food with salt, seasoning salt, or garlic salt?: No Do you used canned, boxed, frozen meals, or soups, seasoning packets?: No Total Score:: 1
--- NOTE | 2019-05-27 10:18 | PCM.CR.HP2 ---
CR - History & Physical - General Arrival date:: 05/27/19 Arrival time:: 10:18 Date of Referral:: 05/27/19 Date of CR Evaluation:: 05/27/19 Referring Physician: Dr. Donovan Terry Primary Diagnosis: PCI x 3 - History of Present Cardiac Event Onset Date: Enter Onset Date of cardiac illnesses in Comment field below Current stable Angina Pectoris:: No Acute Myocardial Infarction within 12 months:: No Coronary Artery Bypass Graft:: No Heart valve replacement or repair:: No PTCA or coronary stenting:: Yes - x 3 05/19/19 Heart or Heart-Lung Transplant:: No Heart Failure EF <35%:: Yes Type of Symptoms:: no energy, night sweats Interventions with present event:: heart cath, stress test, angioplasty with PCI Were there any complications?: congestive heart failure prior to PCI - Medications Home Medications: Ambulatory Orders Medication Instructions Recorded aspirin 81 mg tablet,delayed 81 mg PO DAILY@0800 #30 tab 04/23/19 release clopidogrel 75 mg tablet 75 mg PO DAILY #30 tab 04/23/19 furosemide 40 mg tablet 40 mg PO DAILY #30 tab 04/23/19 potassium chloride ER 20 mEq 20 meq PO DAILY #30 tab 04/23/19 tablet,extended release(part/cryst) rosuvastatin 10 mg tablet 10 mg PO DAILY 04/23/19 lisinopril 20 mg tablet 20 mg PO BID #60 tab 04/28/19 Nitroglycerin (INPATIENT USE) 0.4 mg SUBLINGUAL Q5M PRN #25 05/20/19 [Nitrostat] tab.subl carvedilol 6.25 mg tablet 6.25 mg PO BID #60 tab 05/24/19 - Allergies Allergies/Adverse Reactions: Allergies No Known Allergies Allergy (Verified 05/22/19 14:22) - Sleep Disorder Evaluation Hx of Sleep Apnea: No Do you snore loudly (louder than talking or can be heard through closed doors)?: Yes Do you often feel tired/ fatigued/ sleepy during daytime?: No Has anyone observed you stop breathing during sleep?: No History of Hypertension (for STOP score): Yes STOP Results: Positive Advanced Directives - Advanced Directives Living Will: Yes Advance Directives Information Provided: Yes Advance Directives on File: Yes DNR Order?:: No Past Medical History - Past Medical Illness Medical History: Past Medical History (Last Reviewed 05/24/19 @ 11:41 by Cierra Alegre) Ischemic cardiomyopathy (Chronic) I25.5 EF 35%, global hypokinesis Acute kidney injury (Chronic) N17.9 Atherosclerosis of [place] coronary artery of [place] heart without angina pectoris (Chronic) I25.10 Successful PTCA/JEMIMA mid LCX with a 2.5 x 24 Promus Synergy; Successful PTCA/JEMIMA mid RPL branch with a 2.25 x 12 Promus Synergy; Successful PTCA/JEMIMA mid RCA with a 4.0 x 24 Promus Synergy; Successful PCI with PTCA to the ostial PL Branch #1 with a 2.0 x 8 balloon; 85%-->50%, no dissection Per Dr. Terry 05/19/19 @ [facility] Acute renal insufficiency (Acute) N28.9 Hypertensive urgency (Resolved) I16.0 - Past Surgical History Surgical History: Past Surgical History (Last Reviewed 05/24/19 @ 11:41 by Cierra Alegre) Stented coronary artery (Chronic) Onset Date: 05/19/19 Z95.5 Successful PTCA/JEMIMA mid LCX with a 2.5 x 24 Promus Synergy; Successful PTCA/JEMIMA mid RPL branch with a 2.25 x 12 Promus Synergy; Successful PTCA/JEMIMA mid RCA with a 4.0 x 24 Promus Synergy; Successful PCI with PTCA to the ostial PL Branch #1 with a 2.0 x 8 balloon; 85%-->50%, no dissection Per Dr. Terry 05/19/19 @ [facility] History of left heart catheterization (Chronic) Z98.890 Left Ventricular Ejection Fraction: by LV Gram 40 %; Global Hypokinesis - Mild; Depressed Left Ventricular systolic function; LEFT MAIN: Angiographically normal; LEFT ANTERIOR DESCENDING ARTERY: Mild;luminal irregularities less than 30%; DISTAL LAD: Moderate luminal irregularities up to 50%; CIRCUMFLEX ARTERY: MID CIRC: Moderate luminal irregularities up to 50%; RIGHT CORONARY ARTERY:PROX RCA: Diffusely diseased up to 40 %; RT PLV: 80 % Stenosis Surgical History: no surgical history, - - cardiac cath with stents - Family History Summary Family History: Family History (Last Reviewed 05/24/19 @ 11:41 by Cierra Alegre) Father Heart disease in early 70s Hypertension Mother Heart disease, Onset Age: 65 smoker Brother Heart disease, Onset Age: 60 Social History - Smoking History Smoking Status: Never smoker Hx Tobacco Use: Yes - chew 1-2 daily Hx Smoking Exposure: Yes - girlfriend - Alcohol Use Alcohol Usage: No - Substance Abuse Hx Substance Use: No - Occupation Occupation (List type of work in comments):: Employed Hours worked per day:: 10 Returned to work on:: 06/01/19 - Hobbies, Recreation, Social Activities Hobbies: Walking, Other - tinkering with tractors Recreational Activities: I am able to engage in all my recreational activities Social Environment - Status Marital Status: - lives with girlfriend now - Children How many children do you have?: 0 - Safety Do you feel safe in your surroundings?: Yes - Assistance Do you need any assistance at home?: no Review of Systems - Review of Systems Hints: Right click = Denies (Slash). Left click = Reports ([place]) Review of Present Symptoms: Reports: Appetite - Normal, Appetite - Special Diet. Denies: Shortness of Breath at Rest, Shortness of Breath with Exertion, PVD, Operative Discomfort, Angina, Wound Healing, Dizziness/Lightheadedness, Fatigue, Heart Arrhythmia/Irregularities, Sleep - Normal, Sexual Changes - Pain Is Patient Pain Free?: Yes Risk Factor Assessment - Vital Signs Pulse Ox: 97 - Pulse Pulse Rate: 73 Pulse Rhythm: Regular - Hypertension Blood Pressure Sitting - Right Arm: 130/80 Blood Pressure Sitting - Left Arm: 138/70 - Stress Stress: Home/Family - Blood Cholesterol/Lipids Total Cholesterol (mg/dL) Goal = less than 200 mg/dL: 129 HDL Cholesterol (mg/dL) Goal = less than 40 mg/dL: 26 LDL Cholesterol (mg/dL) Goal = less than 70 mg/dL: 78 Triglycerides (mg/dL) Goal = less than 150 mg/dL: 125 - Diabetes Nutrition Referral for Diabetes: Yes - Obesity Height: 5 ft 11 in Weight:: 213 lb Weight in Pounds: 213.0 lbs Weight Source: Stated by Patient Body Mass Index (BMI): 29.7 Desired Body Weight: 200 Realistic Weight Goal (Loss of 1-2 lbs/week): 185 Nutritional Referral for Obesity: Yes - had some high blood sugars in hospital, cardiac, obesity. - Physical Inactivity Physical Inactivity: None - Risk Stratification Risk Guidelines: Lowest Risk: Risk Factor for Depression, Moderate Risk: Risk Factor for Smoking, Risk Factor for Dyslipidemia, Risk Factor for Diabetes, Risk Factor for Obesity, Risk Factor for Hypertension, Risk Factor for Sedentary Lifestyle - For Smoking Smoking Risk Guidelines: Smoking Low Risk: None or quit greater than 6 months ago. Smoking Moderate Risk: Smoker or quit 6 months or less ago. Smoking High Risk: Smoker - For Dyslipidemia Dyslipidemia Risk Guidelines: Low Risk: Moderate Risk: High Risk: 15-25% fat 25.1-29% fat >/= 30% fat. <7% sat fat 7-9% sat fat >9% sat fat. <150 mg chol 150-299 mg chol >/= 300 mg chol. LDL <100 LDL 100-129 LDL >/= 130. Chol/HDL ratio <5.0 Chol/HDL ratio 5.0-6.0 Chol/HDL ratio >6.0. Triglycerides <100 Triglycerides 100-149 Triglycerides >/= 150 - For Diabetes Mellitus Diabetes Risk Guidelines: Diabetes Low Risk: HgA1c <6.5% and/or FBG <120. Diabetes Moderate Risk: HgA1c 6.6-7.9% and/or FBG 120-180. Diabetes High Risk: HgA1c >/= 8% and/or FBG >180 - For Obesity/Overweight Obesity/Overweight Risk Guidelines: Obesity Low Risk: BMI <25.0. Obesity Moderate Risk: BMI 25-29.9. Obesity High Risk: BMI >/= 30.0 - For Hypertension Hypertension Risk Guidelines: Hypertension Low Risk: Systolic <120 and Diastolic <80. Hypertension Moderate Risk: Systolic 120-139 and Diastolic 80-89. Hypertension High Risk: Systolic >/= 140 and Diastolic >/= 90 - For Sedentary Lifestyle Sedentary Lifestyle Risk Guidelines: Sedentary Lifestyle Low Risk: >/= 1,500 kcal/week. Sedentary Lifestyle Moderate Risk: 700-1,499 kcal/week. Sedentary Lifestyle High Risk: < 700 kcal/week - For Depression Depression Risk Guidelines: Depression Low Risk: Not clinically depressed. Depression Moderate Risk: Mildly depressed. Depression High Risk: Clinically depressed - Family History Family History: Family History (Last Reviewed 05/24/19 @ 11:41 by Cierra Alegre) Father Heart disease Hypertension Mother Heart disease, Onset Age: 65 Brother Heart disease, Onset Age: 60 Motivation - Motivation to Participate On a scale of 1 to 10, how prepared are you to commit to attending program?: 6
[2019-05-27 10:52] VITALS: BP 130/80; BP 138/70; PULSE 73; O2SAT 97; BMI 29.7
== END | disposition home or self-care (01) ==
PROVIDERS: Family Provider Family Medicine Geriatric Medicine; PCP Family Medicine Geriatric Medicine; Referring Provider Internal Medicine Cardiovascular Disease; Visit Provider Internal Medicine Cardiovascular Disease
DX: I25.10 Atherosclerotic heart disease of native coronary artery without angina pectoris (principal); I25.5 Ischemic cardiomyopathy; N17.9 Acute kidney failure, unspecified; Z95.5 Presence of coronary angioplasty implant and graft; Z79.82 Long term (current) use of aspirin; Z79.899 Other long term (current) drug therapy; F17.220 Nicotine dependence, chewing tobacco, uncomplicated

== ENCOUNTER → 2019-07-09 08:43 | Outpatient (CLI) | payer BC, SELFPAY ==
[2019-06-11 10:14] VITALS: BMI 29.5
[2019-07-09 12:00] LABS: Absolute Lymphocyte Count 0.85 X10^3/uL (0.83-4.51); Absolute Neutrophil Count 3.2 X10^3/uL (2.0-7.7); Basophil# 0.04 X10^3/uL; Basophil% 0.8 % (0-1); Eosinophil# 0.34 X10^3/uL; Eosinophils% 7.1 % (0-5); Hemoglobin 11.7 g/dL (13.0-16.5); Lymphocyte # 0.85 X10^3/ul (4.0); Lymphocyte % 17.6 % (19-41); Mean Corp Hgb Conc 33.4 g/dL (32-36); Mean Corpuscular Hgb 31.8 pg (27.0-32.0); Mean Corpuscular Volume 95.1 fL (80-94); Mean Platelet Vol. 10.7 fl (6.2-12.0); Monocyte# 0.24 X10^3/uL; NRBC Flagged by Analyzer 0 % (0-5); Neutrophil # 3.24 X10^3/uL (2.7-7.7); Neutrophil % 67.2 % (47-70); Platelet Count 132 K/mm3 (150-450); RBC Distribution Width CV 13.1 % (11.6-14.6); RBC Distribution Width SD 45.9 fl (35.1-43.9); Red Blood Count 3.68 M/mm3 (4.6-6.2); White Blood Count 4.8 K/mm3 (4.4-11.0)
[2019-07-09 12:19] LABS: ALB/GLOB Ratio 1.1 RATIO (0.9-2.4); AST(SGOT) 27 U/L (15-37); Alanine Aminotransfer ALT/SGPT 24 U/L (16-61); Albumin, Serum 4.1 g/dL (3.2-5.0); Alkaline Phosphatase 73 U/L (45-117); Anion Gap 6 (5-15); BUN 29 mg/dL (7-18); BUN/Creat Ratio 19.1 RATIO (10-20); Calcium,Total 8.8 mg/dL (8.5-10.1); Chloride 105 mmol/L (98-107); Creatinine, Serum 1.52 mg/dL (0.70-1.30); EST Glomerular Filtration Rate 50 mL/min (>60); Est Glom Filt Rate - Afr Amer 61 mL/min (>60); Globulin 3.6 g/dL (2.2-4.2); Glucose 110 mg/dL (74-106); Potassium 3.7 mmol/L (3.5-5.1); Protein, Total 7.7 g/dL (6.4-8.2); Sodium Level 142 mmol/L (136-145); Thyroid Stim Hormone (TSH) 1.22 uIU/mL (0.358-3.74); Uric Acid 8.3 mg/dL (3.5-7.2)
== END ==
PROVIDERS: Family Provider Family Medicine Geriatric Medicine; PCP Family Medicine Geriatric Medicine; Visit Provider Family Medicine Geriatric Medicine
DX: I10 Essential (primary) hypertension (principal); M10.9 Gout, unspecified
CPT/HCPCS: 36415; 80053; 84443; 84550; 85025

== ENCOUNTER → 2019-09-01 15:10 | Outpatient (CLI) | payer BC, SELFPAY ==
[2019-06-11 10:14] VITALS: BMI 29.5
--- NOTE | 2019-09-01 15:19 | RAD_ITS ---
STUDY: X-RAY - LEFT ANKLE REASON FOR EXAM: Male, 59 years old. Pain and swelling x1 day, no injury TECHNIQUE: 3 view(s) of the ankle. COMPARISON: None. FINDINGS: Normal visualized distal tibia and fibula. Normal medial and lateral malleoli. Normal tibiotalar articulation and ankle mortise. There is a tiny plantar aspect calcaneal spur. The visualized subtalar, talonavicular, calcaneocuboid and tarsal articulations are normal. The soft tissue structures are unremarkable. RAD/Ankle min 3 Views IMPRESSION: Tiny plantar aspect calcaneal spur. There is no evidence of fracture, dislocation, or significant degenerative disease. Electronically Signed: German Hastings MD at 16:20 EST , Service support ,
--- NOTE | 2019-09-01 15:19 | RAD_ITS ---
STUDY: X-RAY - LEFT FOOT CLINICAL: Male, 59 years old. Pain and swelling x1 day TECHNIQUE: 3 view(s) of the foot. COMPARISON: None. FINDINGS: Normal talus, calcaneus, and tarsal bones. Normal visualized subtalar, talonavicular, calcaneocuboid, tarsal and tarsometatarsal articulations. Normal metatarsi. There is degenerative arthrosis of the metatarsophalangeal joint of the hallux . Normal tibial and fibular sesamoid bones. Normal interphalangeal joint of the great toe. Normal phalanges of the great toe. Normal second through fifth metatarsophalangeal joints. Normal interphalangeal joints and phalanges of the lesser toes. The soft tissue structures are unremarkable. RAD/Foot min 3 Views IMPRESSION: Mild arthritic changes of the first metatarsophalangeal joint. Electronically Signed: German Hastings MD at 16:17 EST , Service support ,
[2019-09-01 16:57] LABS: Absolute Lymphocyte Count 0.92 X10^3/uL (0.83-4.51); Basophil# 0.03 X10^3/uL; Basophil% 0.4 % (0-1); Eosinophil# 0.17 X10^3/uL; Eosinophils% 2.2 % (0-5); Hemoglobin 13.2 g/dL (13.0-16.5); Lymphocyte # 0.92 X10^3/ul (4.0); Lymphocyte % 12.1 % (19-41); Mean Corp Hgb Conc 33.8 g/dL (32-36); Mean Corpuscular Volume 94.4 fL (80-94); Monocyte# 0.44 X10^3/uL; Monocyte% 5.8 % (0-10); NRBC Flagged by Analyzer 0 % (0-5); Neutrophil # 6.03 X10^3/uL (2.7-7.7); Platelet Count 137 K/mm3 (150-450); RBC Distribution Width CV 11.8 % (11.6-14.6); RBC Distribution Width SD 40.8 fl (35.1-43.9); Red Blood Count 4.13 M/mm3 (4.6-6.2); White Blood Count 7.6 K/mm3 (4.4-11.0)
[2019-09-01 17:14] LABS: Anion Gap 5 (5-15); BUN 23 mg/dL (7-18); CRP < 2.90 mg/L (0.0-3.0); Calcium,Total 9.2 mg/dL (8.5-10.1); Chloride 102 mmol/L (98-107); Creatinine, Serum 1.44 mg/dL (0.70-1.30); EST Glomerular Filtration Rate 54 mL/min (>60); Est Glom Filt Rate - Afr Amer 65 mL/min (>60); Glucose 90 mg/dL (74-106); Potassium 3.9 mmol/L (3.5-5.1); Sodium Level 137 mmol/L (136-145); Uric Acid 8.2 mg/dL (3.5-7.2)
[2019-09-01 17:22] LABS: Erythrocyte Sedimentation Rate 8 mm/hr (0-20)
== END ==
PROVIDERS: Family Provider Family Medicine Geriatric Medicine; PCP Family Medicine Geriatric Medicine; Referring Provider Family Medicine Geriatric Medicine; Visit Provider Family Medicine Geriatric Medicine
DX: M25.572 Pain in left ankle and joints of left foot (principal); M79.672 Pain in left foot; R79.9 Abnormal finding of blood chemistry, unspecified
CPT/HCPCS: 36415; 73610; 73630; 80048; 84550; 85025; 85652; 86140

== ENCOUNTER → 2019-10-01 08:58 | Outpatient (CLI) | payer BC, SELFPAY ==
[2019-06-11 10:14] VITALS: BMI 29.5
[2019-10-01 12:43] LABS: Absolute Lymphocyte Count 1.07 X10^3/uL (0.83-4.51); Absolute Neutrophil Count 2.9 X10^3/uL (2.0-7.7); Basophil# 0.01 X10^3/uL; Basophil% 0.2 % (0-1); Eosinophil# 0.17 X10^3/uL; Eosinophils% 3.9 % (0-5); Hematocrit 37.9 % (40-54); Hemoglobin 12.6 g/dL (13.0-16.5); Lymphocyte # 1.07 X10^3/ul (4.0); Lymphocyte % 24.4 % (19-41); Mean Corp Hgb Conc 33.2 g/dL (32-36); Mean Corpuscular Hgb 31.2 pg (27.0-32.0); Mean Corpuscular Volume 93.8 fL (80-94); Mean Platelet Vol. 10.8 fl (6.2-12.0); Monocyte# 0.25 X10^3/uL; Monocyte% 5.7 % (0-10); NRBC Flagged by Analyzer 0 % (0-5); Neutrophil # 2.87 X10^3/uL (2.7-7.7); Neutrophil % 65.6 % (47-70); Platelet Count 108 K/mm3 (150-450); RBC Distribution Width SD 41.5 fl (35.1-43.9); Red Blood Count 4.04 M/mm3 (4.6-6.2); White Blood Count 4.4 K/mm3 (4.4-11.0)
[2019-10-01 13:09] LABS: ALB/GLOB Ratio 1.1 RATIO (0.9-2.4); AST(SGOT) 30 U/L (15-37); Alanine Aminotransfer ALT/SGPT 38 U/L (16-61); Albumin, Serum 3.9 g/dL (3.2-5.0); Alkaline Phosphatase 60 U/L (45-117); Anion Gap 4 (5-15); BUN 28 mg/dL (7-18); BUN/Creat Ratio 18.4 RATIO (10-20); Calcium,Total 9.4 mg/dL (8.5-10.1); Chloride 105 mmol/L (98-107); Creatinine, Serum 1.52 mg/dL (0.70-1.30); EST Glomerular Filtration Rate 50 mL/min (>60); Est Glom Filt Rate - Afr Amer 61 mL/min (>60); Globulin 3.5 g/dL (2.2-4.2); Glucose 103 mg/dL (74-106); Potassium 4.1 mmol/L (3.5-5.1); Protein, Total 7.4 g/dL (6.4-8.2); Sodium Level 141 mmol/L (136-145); Uric Acid 7.6 mg/dL (3.5-7.2)
== END ==
PROVIDERS: Family Provider Family Medicine Geriatric Medicine; PCP Family Medicine Geriatric Medicine; Visit Provider Family Medicine Geriatric Medicine
DX: I10 Essential (primary) hypertension (principal); M10.9 Gout, unspecified
CPT/HCPCS: 36415; 80053; 84443; 84550; 85025

== ENCOUNTER → 2019-11-27 08:39 | Outpatient (CLI) | payer BC, SELFPAY ==
[2019-11-19 11:06] VITALS: BMI 29.2
[2019-11-27 10:02] LABS: AST(SGOT) 23 U/L (15-37); Alanine Aminotransfer ALT/SGPT 22 U/L (16-61); Alkaline Phosphatase 65 U/L (45-117); Bilirubin, Direct 0.17 mg/dL (0.00-0.30); Cholesterol 105 mg/dL (200); Globulin 3.4 g/dL (2.2-4.2); High Density Lipoprotein 35 mg/dL; Protein, Total 7.4 g/dL (6.4-8.2); Triglycerides 96 mg/dL; Very Low Density Lipoprotein 19 mg/dL (5-40)
== END ==
PROVIDERS: PCP Family Medicine Geriatric Medicine; Referring Provider Internal Medicine Cardiovascular Disease; Visit Provider Internal Medicine Cardiovascular Disease
DX: E78.00 Pure hypercholesterolemia, unspecified (principal)
CPT/HCPCS: 80061; 80076

== ENCOUNTER → 2019-12-03 10:05 | Outpatient (CLI) | payer BC, SELFPAY ==
[2019-11-19 11:06] VITALS: BMI 29.2
--- NOTE | 2019-12-03 10:08 | ECHOD_ITS ---
Reason For Study: CHF Procedure This was a 2D Doppler, Color Flow transthoracic echocardiogram. Exam performed in department. Left Ventricle Moderate concentric left ventricular hypertrophy. The estimated ejection fraction is 65 %. Stage 1 diastolic dysfunction. No regional wall motion abnormalities noted. Right Ventricle Mildly dilated right ventricle. Normal systolic function. Atria Normal left atrium. Normal right atrium. Normal atrial septum. Mitral Valve The mitral valve is structurally normal. No prolapse or stenosis seen. Tricuspid Valve Normal tricuspid valve. Trivial tricuspid valve insufficiency. Right ventricular systolic pressure estimated to be 31 mmHg. Aortic Valve Normal aortic valve. Trisinus/trileaflet aortic valve. Pulmonic Valve Normal pulmonic valve. Great Vessels Normal aortic root. Normal arch. Normal inferior vena cava. Inferior vena cava collapse with sniff. Pericardium/Pleural No pericardial effusion. MMode/2D Measurements & Calculations LVIDd: 5.2 cm IVSd: 2.0 cm Ao root diam: 3.8 cm LVIDs: 3.3 cm LVPWd: 1.2 cm RVDd: 3.8 cm FS: 36.1 % LAV(MOD-bp): 48.0 ml LA A4 area: 17.0 cm2 LA dimension(2D): 4.0 cm LAV(MOD-bp) Indexed: 22.5 ml/m2 LAV(MOD-sp2): 56.4 ml LAV(MOD-sp4): 42.6 ml RA A4 area: 15.4 cm2 Time Measurements MV dec time: 0.20 sec Doppler Measurements & Calculations MV E max kevin: 61.4 cm/sec Lat Peak E' Kevin: 6.3 cm/sec Med Peak E' Kevin: 6.3 cm/sec MV A max kevin: 98.1 cm/sec E/E' lat: 9.7 E/E' med: 9.8 MV E/A: 0.63 Ao V2 max: 132.7 cm/sec LV V1 max: 90.1 cm/sec PA V2 max: 110.5 cm/sec Ao max P.0 mmHg LV V1 max P.3 mmHg TR max kevin: 255.5 cm/sec TR max P.1 mmHg Interpretation Summary Moderate concentric left ventricular hypertrophy. The estimated ejection fraction is 65 %. Stage 1 diastolic dysfunction. Mildly dilated right ventricle. Trivial tricuspid valve insufficiency. Right ventricular systolic pressure estimated to be 31 mmHg. Compared to echo report dated 03/29/2019, no appreciable changes noted. Ordering Physician: Abebe Terry Referring Physician: Anthony Cabral Chi Performed By: Ursula Ponce RDCS, RVT
== END ==
PROVIDERS: PCP Family Medicine Geriatric Medicine; Referring Provider Internal Medicine Cardiovascular Disease; Visit Provider Internal Medicine Cardiovascular Disease
DX: I25.5 Ischemic cardiomyopathy (principal)
CPT/HCPCS: 93306

== ENCOUNTER → 2021-09-14 11:30 | Outpatient (CLI) | payer BC, SELFPAY ==
[2021-09-14 15:21] LABS: Absolute Lymphocyte Count 1.28 X10^3/uL (0.83-4.51); Absolute Neutrophil Count 4.4 X10^3/uL (2.0-7.7); Basophil# 0.02 X10^3/uL; Basophil% 0.3 % (0-1); Eosinophil# 0.21 X10^3/uL; Eosinophils% 3.3 % (0-5); Hematocrit 43.3 % (40-54); Hemoglobin 14.3 g/dL (13.0-16.5); Lymphocyte # 1.28 X10^3/ul (0.83-4.51); Lymphocyte % 19.9 % (19-41); Mean Corpuscular Hgb 30.6 pg (27.0-32.0); Mean Corpuscular Volume 92.7 fL (80-94); Monocyte# 0.53 X10^3/uL; Monocyte% 8.3 % (0-10); NRBC Flagged by Analyzer 0 % (0-5); Neutrophil # 4.36 X10^3/uL (2.7-7.7); Neutrophil % 67.9 % (47-70); Platelet Count 170 K/mm3 (150-450); RBC Distribution Width CV 12.7 % (11.6-14.6); RBC Distribution Width SD 43.3 fl (35.1-43.9); Red Blood Count 4.67 M/mm3 (4.6-6.2); White Blood Count 6.4 K/mm3 (4.4-11.0)
[2021-09-14 15:41] LABS: ALB/GLOB Ratio 1.2 RATIO (0.9-2.4); AST(SGOT) 27 U/L (15-37); Alanine Aminotransfer ALT/SGPT 27 U/L (16-61); Alkaline Phosphatase 71 U/L (45-117); Anion Gap 6 (5-15); BUN 20 mg/dL (7-18); BUN/Creat Ratio 18.3 RATIO (10-20); Chloride 110 mmol/L (98-107); Cholesterol 105 mg/dL (200); Creatinine, Serum 1.09 mg/dL (0.70-1.30); EST Glomerular Filtration Rate 73 mL/min (>60); Est Glom Filt Rate - Afr Amer 89 mL/min (>60); Globulin 3.3 g/dL (2.2-4.2); Glucose 73 mg/dL (74-106); High Density Lipoprotein 36 mg/dL; Potassium 4.4 mmol/L (3.5-5.1); Protein, Total 7.3 g/dL (6.4-8.2); Sodium Level 142 mmol/L (136-145); Thyroid Stim Hormone (TSH) 0.66 uIU/mL (0.358-3.74); Triglycerides 127 mg/dL; Uric Acid 5.5 mg/dL (3.5-7.2); Very Low Density Lipoprotein 25 mg/dL (5-40)
== END ==
PROVIDERS: PCP Family Medicine; Referring Provider Family Medicine; Visit Provider Family Medicine
DX: N18.30 Chronic kidney disease, stage 3 unspecified (principal); I50.9 Heart failure, unspecified; M10.9 Gout, unspecified; I42.9 Cardiomyopathy, unspecified
CPT/HCPCS: 36415; 80053; 80061; 84443; 84550; 85025

== ENCOUNTER → 2022-05-03 | Outpatient (CLI) | payer BC, SELFPAY ==
[2022-05-03 12:37] LABS: PTHIN 54.7 pg/mL (18.4-80.1)
[2022-05-03 12:50] LABS: Microalbumin,Random Urine 32.8 mg/L (NO RANGE EST.)
[2022-05-03 12:53] LABS: Vitamin D,25 Hydroxy 34.2 ng/mL
[2022-05-03 13:01] LABS: ALB/GLOB Ratio 1.1 RATIO (0.9-2.4); AST(SGOT) 24 U/L (15-37); Alanine Aminotransfer ALT/SGPT 26 U/L (16-61); Albumin, Serum 3.8 g/dL (3.2-5.0); Alkaline Phosphatase 64 U/L (45-117); Anion Gap 3 (5-15); BUN 21 mg/dL (7-18); BUN/Creat Ratio 17.2 RATIO (10-20); Calcium,Total 8.6 mg/dL (8.5-10.1); Chloride 109 mmol/L (98-107); Creatinine, Serum 1.22 mg/dL (0.70-1.30); EST Glomerular Filtration Rate 64 mL/min (>60); Est Glom Filt Rate - Afr Amer 78 mL/min (>60); Globulin 3.4 g/dL (2.2-4.2); Glucose 112 mg/dL (74-106); Potassium 4.1 mmol/L (3.5-5.1); Protein, Total 7.2 g/dL (6.4-8.2); Sodium Level 139 mmol/L (136-145); Thyroid Stim Hormone (TSH) 0.71 uIU/mL (0.358-3.74); Uric Acid 5.9 mg/dL (3.5-7.2)
== END | disposition home or self-care (01) ==
LOC: MFPLAB 10:49
PROVIDERS: PCP Family Medicine; Referring Provider Family Medicine; Visit Provider Family Medicine
DX: I12.9 Hypertensive chronic kidney disease with stage 1 through stage 4 chronic kidney disease, or unspecified chronic kidney disease (principal); I42.9 Cardiomyopathy, unspecified; N18.30 Chronic kidney disease, stage 3 unspecified
CPT/HCPCS: 36415; 80053; 82043; 82306; 83970; 84443; 84550

== ENCOUNTER → 2023-05-15 | Outpatient (CLI) | payer BC, SELFPAY ==
[2023-05-15 17:38] LABS: Absolute Lymphocyte Count 1.27 X10^3/uL (0.83-4.51); Absolute Neutrophil Count 4.1 X10^3/uL (2.0-7.7); Basophil# 0.03 X10^3/uL; Basophil% 0.5 % (0-1); Eosinophil# 0.26 X10^3/uL; Eosinophils% 4.2 % (0-5); Hematocrit 42.7 % (40-54); Hemoglobin 13.9 g/dL (13.0-16.5); Lymphocyte # 1.27 X10^3/ul (0.83-4.51); Lymphocyte % 20.5 % (19-41); Mean Corp Hgb Conc 32.6 g/dL (32-36); Mean Corpuscular Hgb 31.2 pg (27.0-32.0); Mean Corpuscular Volume 95.7 fL (80-94); Mean Platelet Vol. 10.6 fl (6.2-12.0); Monocyte# 0.52 X10^3/uL; Monocyte% 8.4 % (0-10); NRBC Flagged by Analyzer 0 % (0-5); Neutrophil # 4.11 X10^3/uL (2.7-7.7); Neutrophil % 66.1 % (47-70); Platelet Count 135 K/mm3 (150-450); RBC Distribution Width CV 12.3 % (11.6-14.6); RBC Distribution Width SD 43.7 fl (35.1-43.9); Red Blood Count 4.46 M/mm3 (4.6-6.2); White Blood Count 6.2 K/mm3 (4.4-11.0)
[2023-05-15 18:13] LABS: ALB/GLOB Ratio 1.2 RATIO (0.9-2.4); AST(SGOT) 30 U/L (15-37); Alanine Aminotransfer ALT/SGPT 31 U/L (16-61); Alkaline Phosphatase 67 U/L (45-117); Anion Gap 7 (5-15); BUN 22 mg/dL (7-18); BUN/Creat Ratio 18.8 RATIO (10-20); Calcium,Total 8.9 mg/dL (8.5-10.1); Chloride 110 mmol/L (98-107); Cholesterol 108 mg/dL (200); Creatinine, Serum 1.17 mg/dL (0.70-1.30); EST Glomerular Filtration Rate 67 mL/min (>60); Est Glom Filt Rate - Afr Amer 81 mL/min (>60); Globulin 3.3 g/dL (2.2-4.2); Glucose 94 mg/dL (74-106); High Density Lipoprotein 31 mg/dL; Potassium 4.4 mmol/L (3.5-5.1); Protein, Total 7.3 g/dL (6.4-8.2); Sodium Level 141 mmol/L (136-145); Thyroid Stim Hormone (TSH) 1.02 uIU/mL (0.358-3.74); Triglycerides 198 mg/dL; Very Low Density Lipoprotein 40 mg/dL (5-40)
== END | disposition home or self-care (01) ==
PROVIDERS: PCP Family Medicine; Visit Provider Family Medicine
DX: I10 Essential (primary) hypertension (principal)
CPT/HCPCS: 36415; 80053; 80061; 84443; 85025

== ENCOUNTER → 2023-08-29 | Outpatient (CLI) | payer BC, SELFPAY ==
[2023-08-29 14:03] LABS: Anion Gap 0 (5-15); BUN 22 mg/dL (7-18); BUN/Creat Ratio 15.6 RATIO (10-20); Calcium,Total 8.7 mg/dL (8.5-10.1); Chloride 107 mmol/L (98-107); Creatinine, Serum 1.41 mg/dL (0.70-1.30); EST Glomerular Filtration Rate 54 mL/min (>60); Est Glom Filt Rate - Afr Amer 65 mL/min (>60); Glucose 186 mg/dL (74-106); Sodium Level 138 mmol/L (136-145)
== END | disposition home or self-care (01) ==
LOC: LAB 12:54
PROVIDERS: PCP Family Medicine; Referring Provider Nurse Practitioner Family; Visit Provider Nurse Practitioner Family
DX: I10 Essential (primary) hypertension (principal); E78.5 Hyperlipidemia, unspecified; Z95.5 Presence of coronary angioplasty implant and graft; I25.5 Ischemic cardiomyopathy
CPT/HCPCS: 36415; 80048; 83735

== ENCOUNTER → 2024-05-14 | Outpatient (CLI) | payer BC, SELFPAY ==
[2024-05-14 12:22] LABS: Absolute Lymphocyte Count 1.03 X10^3/uL (0.83-4.51); Absolute Neutrophil Count 3.9 X10^3/uL (2.0-7.7); Basophil# 0.02 X10^3/uL; Basophil% 0.4 % (0-1); Eosinophil# 0.26 X10^3/uL; Eosinophils% 4.6 % (0-5); Hematocrit 42.7 % (40-54); Hemoglobin 14.1 g/dL (13.0-16.5); Lymphocyte # 1.03 X10^3/ul (0.83-4.51); Lymphocyte % 18.4 % (19-41); Mean Corpuscular Hgb 30.5 pg (27.0-32.0); Mean Corpuscular Volume 92.4 fL (80-94); Mean Platelet Vol. 11.3 fl (6.2-12.0); Monocyte# 0.37 X10^3/uL; Monocyte% 6.6 % (0-10); NRBC Flagged by Analyzer 0 % (0-5); Neutrophil # 3.91 X10^3/uL (2.7-7.7); Neutrophil % 69.6 % (47-70); Platelet Count 120 K/mm3 (150-450); RBC Distribution Width CV 12.6 % (11.6-14.6); RBC Distribution Width SD 42.5 fl (35.1-43.9); Red Blood Count 4.62 M/mm3 (4.6-6.2); White Blood Count 5.6 K/mm3 (4.4-11.0)
[2024-05-14 12:41] LABS: ALB/GLOB Ratio 1.1 RATIO (0.9-2.4); AST(SGOT) 28 U/L (15-37); Alanine Aminotransfer ALT/SGPT 25 U/L (16-61); Albumin, Serum 3.8 g/dL (3.2-5.0); Alkaline Phosphatase 70 U/L (45-117); Anion Gap 3 (5-15); BUN 17 mg/dL (7-18); BUN/Creat Ratio 14.4 RATIO (10-20); Calcium,Total 9.2 mg/dL (8.5-10.1); Chloride 108 mmol/L (98-107); Creatinine, Serum 1.18 mg/dL (0.70-1.30); EST Glomerular Filtration Rate 66 mL/min (>60); Est Glom Filt Rate - Afr Amer 80 mL/min (>60); Globulin 3.4 g/dL (2.2-4.2); Glucose 141 mg/dL (74-106); PSA,Total - Annual Screen 1.59 ng/mL (0.00-4.00); Potassium 3.8 mmol/L (3.5-5.1); Protein, Total 7.2 g/dL (6.4-8.2); Sodium Level 139 mmol/L (136-145)
[2024-05-14 12:44] LABS: Microalbumin,Random Urine 46.3 mg/L (NO RANGE EST.); Microalbumin:Creatinine Ratio 35.9 mg/g CRE (<30 mg/g CRE)
== END | disposition home or self-care (01) ==
LOC: MFPLAB 09:31
PROVIDERS: PCP Family Medicine; Visit Provider Family Medicine
DX: I42.9 Cardiomyopathy, unspecified (principal); L40.50 Arthropathic psoriasis, unspecified; N18.30 Chronic kidney disease, stage 3 unspecified; E79.0 Hyperuricemia without signs of inflammatory arthritis and tophaceous disease
CPT/HCPCS: 36415; 80053; 82043; 82570; 84153; 84550; 85025; G0103

== ENCOUNTER → 2024-09-02 | Outpatient (CLI) | payer BC, SELFPAY ==
--- NOTE | 2024-09-02 12:55 | STRESSREP_ITS ---
Stress Test Report Date: 09/02/2024 Procedure: Exercise tolerance test/imaging study Indications: Coronary artery disease Consent: Per the patient Procedure: The patient exercised on a Sung protocol for 6 minutes and 20 seconds achieving a peak heart rate of 153 bpm (97% predicted maximal heart rate) with a peak blood pressure 226/90 mmHg and a peak MET capacity of 8.0 METs. The baseline ECG demonstrated sinus rhythm with right bundle branch block. The peak exercise ECG demonstrated no ischemic changes. Rare PVC noted. The functional capacity was considered average. There was no complaint of chest discomfort during exercise or recovery. The examination was discontinued secondary to target heart rate being achieved. The patient was injected with 14.7 mCi of technetium 99m Cardiolite and subsequently rest SPECT Cardiolite nuclear imaging was obtained in the horizontal long, vertical long, and short axis views. Post-exercise, the patient was injected with 44.9 mCi of technetium 99m Cardiolite and subsequently stress SPECT Cardiolite nuclear imaging was obtained in the horizontal long, vertical long, and short axis views. A gated Cardiolite study at peak stress was obtained. Rest and stress SPECT Cardiolite nuclear imaging status post realignment, normalization, and attenuation correction, demonstrates the appearance of relative uniform tracer uptake and myocardial perfusion appearing within normal limits. There is end systolic thickening and brightening. The gated Cardiolite study demonstrates myocardial thickening and inward wall motion. The reported LVEF is 57%. Impression: 1. Technically adequate (percent predicted maximal heart rate greater than 85%) exercise tolerance test. Hypertensive blood pressure response to exercise. 2. Peak exercise ECG with no ischemic changes 3. No significant cardiac dysrhythmias noted. Rare PVC. 4. Rest and stress SPECT Cardiolite nuclear imaging demonstrate relative uniform tracer uptake and myocardial perfusion appearing within normal limits. 5. The gated Cardiolite study reports an LVEF of 57%. This note was generated with [employer] Courseation software. It may contain incorrect words, spelling, and punctuation that were not noted in checking the note before signing.
== END | disposition home or self-care (01) ==
LOC: CVS 06:43
PROVIDERS: PCP Family Medicine; Referring Provider Internal Medicine Cardiovascular Disease; Visit Provider Internal Medicine Cardiovascular Disease
DX: I25.10 Atherosclerotic heart disease of native coronary artery without angina pectoris (principal)
CPT/HCPCS: 78452; 93017; A9500

== ENCOUNTER → 2024-09-07 | Outpatient (CLI) | payer BC, SELFPAY ==
--- NOTE | 2024-09-07 15:19 | ECHOD_ITS ---
Reason For Study: CHF Procedure This was a 2D Doppler, Color Flow transthoracic echocardiogram. Exam performed in department. Left Ventricle Normal LV size. Moderate LV concentric hypertrophy. LVEF 65%. Stage I diastolic dysfunction. Right Ventricle Normal right ventricle. Atria The left and right atria are normal. Mitral Valve Mild (1+) mitral valve insufficiency. Tricuspid Valve Mild tricuspid valve insufficiency. Normal pulmonary artery pressure. Aortic Valve Trisinus/trileaflet aortic valve. Pulmonic Valve The pulmonic valve is not well visualized. Trivial pulmonic valve insufficiency. Great Vessels Mildly dilated aortic root. Pericardium/Pleural No pericardial effusion. MMode/2D Measurements & Calculations LVIDd: 4.7 cm IVSd: 1.6 cm Ao root diam: 3.9 cm LVIDs: 3.1 cm LVPWd: 1.3 cm RVDd: 3.9 cm FS: 33.2 % LAV(MOD-bp): 43.9 ml LVAd ap4: 27.7 cm2 SV(MOD-sp4): 45.8 ml LAV(MOD-bp) Indexed: 19.6 ml/m2 LVLd ap4: 7.5 cm SI(MOD-sp4): 20.5 ml/m2 LAV(MOD-sp2): 48.7 ml EDV(MOD-sp4): 84.3 ml LAV(MOD-sp4): 35.3 ml EDV(sp4-el): 87.7 ml LVAs ap4: 17.6 cm2 LVLs ap4: 6.8 cm ESV(MOD-sp4): 38.5 ml ESV(sp4-el): 38.6 ml EF(MOD-sp4): 54.4 % EF(sp4-el): 56.0 % SV(sp4-el): 49.1 ml LA A4 area: 14.6 cm2 LA dimension(2D): 4.2 cm RA A4 area: 15.3 cm2 TAPSE: 2.0 cm Time Measurements MV dec time: 0.26 sec Doppler Measurements & Calculations MV E max kevin: 50.6 cm/sec Lat Peak E' Kevin: 7.8 cm/sec Med Peak E' Kevin: 5.0 cm/sec MV A max kevin: 82.3 cm/sec E/E' lat: 6.5 E/E' med: 10.0 MV E/A: 0.61 MV V2 max: 104.1 cm/sec MV P1/2t max kevin: 68.1 cm/sec Ao V2 max: 118.3 cm/sec MV max P.3 mmHg MV P1/2t: 105.9 msec Ao max P.6 mmHg MV V2 mean: 51.3 cm/sec Ao V2 mean: 80.4 cm/sec MV mean P.3 mmHg MV dec slope: 188.4 cm/sec2 Ao mean P.9 mmHg MV V2 VTI: 25.9 cm MVA(P1/2t): 2.1 cm2 Ao V2 VTI: 20.4 cm AV (velocity ratio): 1.1 LV V1 max: 107.2 cm/sec PA V2 max: 88.2 cm/sec TR max kevin: 236.0 cm/sec LV V1 max P.6 mmHg PA V2 mean: 53.2 cm/sec TR max P.3 mmHg LV V1 mean P.6 mmHg LV V1 mean: 77.6 cm/sec LV V1 VTI: 22.1 cm ECHO/Echo Complete Interpretation Summary Moderate LV concentric hypertrophy. LVEF 65%. Stage I diastolic dysfunction. Mild (1+) mitral valve insufficiency. Mild tricuspid valve insufficiency. Mildly dilated aortic root. Ordering Physician: Mary Mcghee Referring Physician: Mary Mcghee Performed By: Lucius Suarez [facility]
== END | disposition home or self-care (01) ==
LOC: CVS 15:02
PROVIDERS: PCP Family Medicine; Referring Provider Internal Medicine Cardiovascular Disease; Visit Provider Internal Medicine Cardiovascular Disease
DX: I50.22 Chronic systolic (congestive) heart failure (principal); Z86.79 Personal history of other diseases of the circulatory system; I25.5 Ischemic cardiomyopathy
CPT/HCPCS: 93306

== ENCOUNTER → 2024-10-13 | Outpatient (CLI) | payer BC, SELFPAY ==
--- NOTE | 2024-10-13 16:50 | CT_ITS ---
STUDY: CTA CHEST REASON FOR EXAM: Male, 64 years old. Dilated aorta. Hypertension. RADIATION DOSAGE (If Supplied By Facility): CTDIvol = ( 14.98 ) mGy, DLP = ( 719.81 ) mGycm TECHNIQUE: The examination was performed with the intravenous administration of IV 100mL Isovue-370. Post-processing of the angiographic images was performed, with multiplanar reformation and 3D reconstruction. Individualized dose optimization techniques were used for this CT. COMPARISON: None. FINDINGS: Normal enhancement of the main pulmonary artery and right and left pulmonary arteries. Normal enhancement of the bilateral peripheral pulmonary arteries. There is no demonstrated pulmonary embolism. There is aneurysmal dilatation of the ascending aorta. The transverse diameter of the ascending aorta measures 46.4 mm''s. There is no demonstrated aortic dissection. There are calcifications of the coronary arteries. Normal mediastinum. Normal hilar regions. Normal visualized trachea and bronchi. The lungs are well expanded. Normal pulmonary parenchyma. Normal pleura. Normal chest wall structures. There are degenerative changes of thoracic spine. Normal visualized upper abdomen. CT/CTA Chest W/WO Contrast IMPRESSION: Dilatation of the root of the ascending thoracic aorta measuring 46.4 mm. Electronically Signed: Delfino Meade MD at 9:48 EST ,
[2024-10-13 17:15] LABS: CREATININE FINGERSTICK 1.4 mg/dL (0.70-1.30)
== END | disposition home or self-care (01) ==
LOC: CT 16:47
PROVIDERS: PCP Family Medicine; Referring Provider Physician Assistant Medical; Visit Provider Physician Assistant Medical
DX: I77.810 Thoracic aortic ectasia (principal)
CPT/HCPCS: 71275; Q9967

== ENCOUNTER → 2024-11-12 | Outpatient (CLI) | payer BC, SELFPAY ==
--- NOTE | 2024-11-12 09:13 | RAD_ITS ---
EXAM: XR Left Knee, 3 Views CLINICAL INDICATION: TECHNIQUE: Three views of the left knee. COMPARISON: No relevant prior studies available. FINDINGS: BONES/JOINTS: Mild degenerative changes of the medial compartment of the knee joint. No acute fracture. No dislocation. SOFT TISSUES: Unremarkable. RAD/Knee 3 Views IMPRESSION: Mild degenerative changes of the medial compartment of the knee joint. Reading Location: [facility]
[2024-11-12 10:34] LABS: Absolute Lymphocyte Count 1.02 X10^3/uL (0.83-4.51); Absolute Neutrophil Count 3.7 X10^3/uL (2.0-7.7); Basophil# 0.03 X10^3/uL; Basophil% 0.5 % (0-1); Eosinophil# 0.33 X10^3/uL; Hematocrit 43.4 % (40-54); Hemoglobin 14.9 g/dL (13.0-16.5); Lymphocyte # 1.02 X10^3/ul (0.83-4.51); Lymphocyte % 18.6 % (19-41); Mean Corp Hgb Conc 34.3 g/dL (32-36); Mean Corpuscular Hgb 31.3 pg (27.0-32.0); Mean Corpuscular Volume 91.2 fL (80-94); Mean Platelet Vol. 10.6 fl (6.2-12.0); Monocyte% 7.3 % (0-10); NRBC Flagged by Analyzer 0 % (0-5); Neutrophil # 3.69 X10^3/uL (2.7-7.7); Neutrophil % 67.2 % (47-70); Platelet Count 134 K/mm3 (150-450); RBC Distribution Width CV 12.9 % (11.6-14.6); RBC Distribution Width SD 42.6 fl (35.1-43.9); Red Blood Count 4.76 M/mm3 (4.6-6.2); White Blood Count 5.5 K/mm3 (4.4-11.0)
[2024-11-12 10:53] LABS: BNP,B-Type NATRIURETIC PEPTIDE 14.2 pg/mL (0-100)
[2024-11-12 10:53] LABS: Vitamin D,25 Hydroxy 12.9 ng/mL
[2024-11-12 11:06] LABS: Microalbumin,Random Urine 63.4 mg/L (NO RANGE EST.); Microalbumin:Creatinine Ratio 43.7 mg/g CRE (<30 mg/g CRE)
[2024-11-12 11:17] LABS: ALB/GLOB Ratio 1.2 RATIO (0.9-2.4); AST(SGOT) 30 U/L (15-37); Alanine Aminotransfer ALT/SGPT 30 U/L (16-61); Albumin, Serum 4.1 g/dL (3.2-5.0); Alkaline Phosphatase 82 U/L (45-117); Anion Gap 5 (5-15); BUN 19 mg/dL (7-18); BUN/Creat Ratio 16.4 RATIO (10-20); Calcium,Total 9.4 mg/dL (8.5-10.1); Chloride 109 mmol/L (98-107); Cholesterol 105 mg/dL (200); Creatinine, Serum 1.16 mg/dL (0.70-1.30); EST Glomerular Filtration Rate 68 mL/min (>60); Est Glom Filt Rate - Afr Amer 82 mL/min (>60); Globulin 3.4 g/dL (2.2-4.2); Glucose 89 mg/dL (74-106); High Density Lipoprotein 36 mg/dL; Magnesium 1.9 mg/dL (1.6-2.6); Potassium 4.1 mmol/L (3.5-5.1); Protein, Total 7.5 g/dL (6.4-8.2); Sodium Level 142 mmol/L (136-145); Uric Acid 5.7 mg/dL (3.5-7.2)
== END | disposition home or self-care (01) ==
LOC: MTLAB 09:13
PROVIDERS: PCP Family Medicine; Referring Provider Family Medicine; Visit Provider Family Medicine
DX: I13.0 Hypertensive heart and chronic kidney disease with heart failure and stage 1 through stage 4 chronic kidney disease, or unspecified chronic kidney disease (principal); L40.50 Arthropathic psoriasis, unspecified; I50.9 Heart failure, unspecified; I42.9 Cardiomyopathy, unspecified; N18.30 Chronic kidney disease, stage 3 unspecified
CPT/HCPCS: 36415; 73562; 80053; 82043; 82306; 82465; 82570; 83718; 83735; 83880; 84550; 85025

== ENCOUNTER → 2025-03-11 | Outpatient (CLI) | payer BC, SELFPAY ==
[2025-03-11 14:20] LABS: Cholesterol 109 mg/dL (<=200); High Density Lipoprotein 32 mg/dL; Low Density Lipoprotein Calc. 55 mg/dL; Triglycerides 106 mg/dL; Very Low Density Lipoprotein 21 mg/dL (5-40); cholesterol:hdl ratio screen 3.36
[2025-03-11 15:03] LABS: ALB/GLOB Ratio 1.5 RATIO (0.9-2.4); AST(SGOT) 35 U/L (<=37); Alanine Aminotransfer ALT/SGPT 28 U/L (<=46); Albumin, Serum 4.4 g/dL (3.4-4.8); Alkaline Phosphatase 81 U/L (40-129); Anion Gap 11 (5-15); BUN 19 mg/dL (4-19); BUN/Creat Ratio 16.7 RATIO (10-20); Calcium,Total 9.2 mg/dL (7.6-11.0); Carbon Dioxide 22.1 mmol/L (21.0-32.0); Chloride 107 mmol/L (98-108); Creatinine, Serum 1.15 mg/dL (0.70-1.20); EST Glomerular Filtration Rate 72 (>60); Globulin 2.9 g/dL (2.2-4.2); Glucose 92 mg/dL (70-99); Potassium 4.2 mmol/L (3.3-5.1); Protein, Total 7.3 g/dL (5.9-8.4); Sodium Level 140 mmol/L (133-145); Total Bilirubin 0.55 mg/dL (0.00-1.30)
== END | disposition home or self-care (01) ==
LOC: LAB 11:27
PROVIDERS: PCP Family Medicine; Referring Provider Internal Medicine Cardiovascular Disease; Visit Provider Internal Medicine Cardiovascular Disease
DX: I12.9 Hypertensive chronic kidney disease with stage 1 through stage 4 chronic kidney disease, or unspecified chronic kidney disease (principal); N18.9 Chronic kidney disease, unspecified; E78.2 Mixed hyperlipidemia
CPT/HCPCS: 36415; 80053; 80061

== ENCOUNTER → 2025-03-25 | Outpatient (CLI) | payer BC, SELFPAY | END | disposition home or self-care (01) | LOC: US 10:52 | PROVIDERS: PCP Family Medicine; Referring Provider Internal Medicine Cardiovascular Disease; Visit Provider Internal Medicine Cardiovascular Disease | DX: Z00.00 Encounter for general adult medical examination without abnormal findings (principal) ==

== ENCOUNTER → 2025-04-08 | Outpatient (CLI) | payer BC, SELFPAY ==
--- NOTE | 2025-04-08 08:03 | AAVD_ITS ---
Reason For Study Reason For Study: R/O AAA Aorta Measurements Aorta Doppler Measurements Proximal aorta measures1.69x1.80cm. in cross-sectional axis.Peak systolic flow velocities within the proximal aorta Proximal aorta measures1.61cm. in longitudinal axis. measure 92.2 cm/sec. Mid aorta measures1.83x1.76cm. in cross-sectional axis. Peak systolic flow velocities within the mid aorta measure Mid aorta measures1.81cm. in longitudinal axis. 99.5 cm/sec. Distal aorta measures1.64x1.65cm. in cross-sectional axis. Peak systolic flow velocities within the distal aorta Distal aorta measures1.69cm. in longitudinal axis. measure 66.9 cm/sec. Left Iliac Artery Left iliac artery measures 1.29x1.21 cm. in the cross-sectional axis. Left iliac artery measures 1.22 cm. in the longitudinal axis. Peak systolic velocity in the left iliac artery measures 79.6 cm/sec. Right Iliac Artery Right iliac artery measures 1.25x1.25 cm. in the cross-sectional axis. Right iliac artery measures 1.30 cm. in the longitudinal axis. Peak systolic velocity in the right iliac artery measures 70.5 cm/sec. Procedure Aorta IVC Iliac vasculature or bypass grafts [id number]. Exam performed in department. VL/Abd Aortic/IVC Duplex scan Interpretation Summary Aorta patent, normal caliber Right iliac artery patent, ectasia to 1.25 cm Left iliac artery patent, ectasia to 1.29 cm Ordering Physician: Negin Anguiano Referring Physician: Deondre Rico MD Performed By: Traci Corona RVT
== END | disposition home or self-care (01) ==
LOC: CVS 08:00
PROVIDERS: PCP Family Medicine; Referring Provider Physician Assistant Medical; Visit Provider Physician Assistant Medical
DX: I77.810 Thoracic aortic ectasia (principal)
CPT/HCPCS: 93978

== ENCOUNTER → 2025-04-22 | Outpatient (CLI) | payer BC, SELFPAY ==
--- NOTE | 2025-04-22 13:23 | CT_ITS ---
PROCEDURE: CTA CHEST W/WO CONTRAST 04/22/2025 REASON FOR EXAM: KNOWN AAA MONITORING TECHNIQUE: CTA CHEST W/WO CONTRAST Multiplanar Sagittal and Coronal images were obtained. CONTRAST: Isovue 370 VOLUME: 90 mL One or more dose reduction techniques were used (e.g., Automated exposure control, adjustment of the mA and/or kV according to patient size, use of iterative reconstruction technique). RADIATION DOSE SUMMARY: CTDlvol: 29 mGy DLP: 665 mGycm COMPARISON: 10/14/2024 FINDINGS: Unremarkable base of neck and axilla. Thoracic spine degeneration. Normal esophagus. Upper limits of normal heart size. Mildly tortuous thoracic aorta. Minimal calcified plaque. Dilated ascending aorta, maximum cross-section 4.2 x 4.2 cm. 4 vessel arch, the left vertebral artery arises directly off the arch. No central pulmonary embolism. Thoracic spine degeneration. No acute chest wall findings. No acute upper abdominal findings. Central airways are patent. Slight dependent atelectasis. No consolidation, effusion, or pneumothorax. . CT/CTA Chest W/WO Contrast IMPRESSION: Dilated ascending aorta, 4.2 cm maximum cross-section, this is unchanged from t he previous examination. No acute chest findings Reading Location: [place] [address]
[2025-04-22 13:48] LABS: CREATININE FINGERSTICK 1.1 mg/dL (0.70-1.30); EGFR FINGERSTICK > 60.0000 mL/min (>60)
== END | disposition home or self-care (01) ==
LOC: CT 13:22
PROVIDERS: PCP Family Medicine; Referring Provider Physician Assistant Medical; Visit Provider Physician Assistant Medical
DX: I77.810 Thoracic aortic ectasia (principal)
CPT/HCPCS: 71275; Q9967

== ENCOUNTER 2025-05-20 09:09 | Outpatient (CLI) | payer BC, SELFPAY ==
[2025-05-20 10:44] LABS: PSA,Total - Annual Screen 0.92 ng/mL (0.02-4.00)
== END 2025-05-20 23:59 | disposition home or self-care (01) ==
LOC: MFPLAB 09:09
PROVIDERS: PCP Family Medicine
DX: Z00.00 Encounter for general adult medical examination without abnormal findings (principal)
CPT/HCPCS: 36415; 84153; G0103

== ENCOUNTER → 2025-09-14 | Outpatient (CLI) | payer BC, SELFPAY ==
[2025-09-14 10:30] LABS: AST(SGOT) 41 U/L (<=37); Alanine Aminotransfer ALT/SGPT 19 U/L (<=46); Albumin, Serum 4.3 g/dL (3.4-4.8); Alkaline Phosphatase 74 U/L (40-129); Bilirubin, Direct < 0.08 mg/dL (0.00-0.30); Cholesterol 115 mg/dL (<=200); Globulin 3.0 g/dL (2.2-4.2); Low Density Lipoprotein Calc. 50 mg/dL; Triglycerides 183 mg/dL; Very Low Density Lipoprotein 37 mg/dL (5-40); cholesterol:hdl ratio screen 3.34
== END | disposition home or self-care (01) ==
LOC: LAB 08:48
PROVIDERS: PCP Family Medicine; Referring Provider Internal Medicine Cardiovascular Disease; Visit Provider Internal Medicine Cardiovascular Disease
DX: E78.2 Mixed hyperlipidemia (principal); E78.00 Pure hypercholesterolemia, unspecified
CPT/HCPCS: 36415; 80061; 80076

== ENCOUNTER → 2025-09-20 | Outpatient (CLI) | payer BC, SELFPAY ==
--- NOTE | 2025-09-20 06:51 | ECHOCS_ITS ---
Reason For Study Reason For Study: CAD/ASHD Procedure This was a 2D Doppler, Color Flow transthoracic echocardiogram. The patient is in sinus rhythm. The study was technically difficult. Contrast injection was performed. Exam performed in department. Left Ventricle Normal LV size. Moderate concentric left ventricular hypertrophy. Left ventricular systolic function is normal. The left ventricular ejection fraction is 60 %. Stage 1 diastolic dysfunction. No regional wall motion abnormalities noted. Right Ventricle Normal RV size. Normal systolic function. Atria The left and right atria are normal. Mitral Valve Normal mitral valve. Mild (1+) mitral valve insufficiency. Tricuspid Valve Normal tricuspid valve. Mild-Moderate (1-2+) tricuspid valve insufficiency. Pulmonary artery systolic pressure is 25 mmHg. Aortic Valve Trisinus/trileaflet aortic valve. Pulmonic Valve The pulmonic valve is not well visualized. Great Vessels Normal sized aortic root. Pericardium/Pleural No pericardial effusion. Medication 22 gauge I.V. with prn adaptor inserted into left arm. Diluted definity 1ml given slow IV push to enhance endocardial definition. MMode/2D Measurements & Calculations LVIDd: 4.0 cm IVSd: 1.5 cm Ao root diam: 3.9 cm LVIDs: 2.9 cm LVPWd: 1.4 cm RVDd: 4.0 cm FS: 27.1 % LAV(MOD-bp): 49.5 ml LVAd ap4: 36.0 cm2 SV(MOD-sp4): 72.6 ml LAV(MOD-bp) Indexed: 22.6 ml/m2 LVLd ap4: 8.7 cm SI(MOD-sp4): 33.2 ml/m2 LAV(MOD-sp2): 50.0 ml EDV(MOD-sp4): 121.4 ml LAV(MOD-sp4): 48.9 ml EDV(sp4-el): 126.0 ml LVAs ap4: 20.6 cm2 LVLs ap4: 7.0 cm ESV(MOD-sp4): 48.8 ml ESV(sp4-el): 51.7 ml EF(MOD-sp4): 59.8 % EF(sp4-el): 59.0 % SV(sp4-el): 74.3 ml LA A4 area: 18.0 cm2 LA dimension(2D): 4.1 cm RA A4 area: 17.2 cm2 TAPSE: 1.9 cm Time Measurements MV dec time: 0.26 sec Doppler Measurements & Calculations MV E max kevin: 71.7 cm/sec Lat Peak E' Kevin: 6.6 cm/sec Med Peak E' Kevin: 6.3 cm/sec MV A max kevin: 84.2 cm/sec E/E' lat: 10.9 E/E' med: 11.3 MV E/A: 0.85 MV V2 max: 115.5 cm/sec MV P1/2t max kevin: 79.6 cm/sec Ao V2 max: 117.2 cm/sec MV max P.3 mmHg MV P1/2t: 93.0 msec Ao max P.5 mmHg MV V2 mean: 57.2 cm/sec MV dec slope: 250.8 cm/sec2 Ao V2 mean: 76.9 cm/sec MV mean P.5 mmHg MVA(P1/2t): 2.4 cm2 Ao mean P.8 mmHg MV V2 VTI: 32.0 cm Ao V2 VTI: 25.8 cm AV (velocity ratio): 0.75 LV V1 max: 91.9 cm/sec PA V2 max: 102.6 cm/sec TR max kevin: 233.6 cm/sec LV V1 max P.4 mmHg TR max P.8 mmHg LV V1 mean P.9 mmHg LV V1 mean: 66.6 cm/sec LV V1 VTI: 19.2 cm ECHO/Echo Complete W/ Contrast Interpretation Summary The left ventricular ejection fraction is 60 %. Stage 1 diastolic dysfunction. Moderate concentric left ventricular hypertrophy. Mild (1+) mitral valve insufficiency. Mild-Moderate (1-2+) tricuspid valve insufficiency. Contrast injection was performed. Ordering Physician: Mary Mcghee Referring Physician: Mary Mcghee Performed By: Lucius Suarez RCS
--- OUTSIDE RECORDS SUMMARY | 2025-09-20 06:55 | XMS RPT_ITS | CCD ---
Author Organization [facility] CliniSysd Care Team Providers Care Wire Roller Name Role Phone Dr. Deondre Rico Primary Care Provider [phone] Deondre Rico Referring Provider [phone] Roof SNACK BAR CASHIER, SNACK BAR CASHIER-C Kirby Aguilar Attending Provider Jacky MARS, Dr. Mendosa Primary Care Provider [phone] Deondre Rico MD Attending Provider [phone] Deondre Rico MD Referring Provider [phone] Taz MARS, Dr. Hernandez Attending Provider Dr. Mary Mcghee MD Referring Provider Jacky MARS, Dr. Mendosa Primary Care Provider [phone] Jacky MARS, Dr. Mendosa Referring Provider [phone] Negin Collier Attending Provider Negin Collier Referring Provider Dr. Deondre Boucher MD Attending Provider [phone] [facility] SNACK BAR CASHIER-CLos Attending Provider [phone] Taz, Mary Attending Unavailable Rico, Deondre Primary Care Unavailable Taz, Mary Attending Unavailable Taz, Mary Referring Unavailable Rico, Deondre Primary Care Unavailable Negin Collier Attending Unavail able Rico, Deondre Primary Care Unavailable Negin Collier Referring Unavail able Deondre Boucher Attending Unavailable Negin Collier Referring Unavail able Rico, Deondre Primary Care Unavailable Taz, Mary Attending Unavailable Rico, Deondre Primary Care Unavailable Rico, Deondre Referring Unavailable Rico, Deondre Referring Unavailable Taz, Mary Attending Unavailable Rico, Deondre Primary Care Unavailable Taz, Mary Attending Unavailable Taz, Mary Referring Unavailable Rico, Deondre Primary Care Unavailable Rico, Deondre Primary Care Unavailable Negin Collier Referring Unavail able Negin Collier Attending Unavail able Taz, Mary Attending Unavailable Taz, Mary Referring Unavailable Rico, Deondre Primary Care Unavailable Rico, Deondre Referring Unavailable Rico, Deondre Attending Unavailable Rico, Deondre Primary Care Unavailable Taz, Mary Attending Unavailable Taz, Mary Referring Unavailable Rico, Deondre Primary Care Unavailable Taz, Mary Attending Unavailable Taz, Mary Consulting Unavailable Taz, Mary Referring Unavailable Rico, Deondre Primary Care Unavailable Rico, Deondre Referring Unavailable Taz, Mary Attending Unavailable Rico, Deondre Primary Care Unavailable Negin Collier Attending Unavail able Negin Collier Referring Unavail able Rico, Deondre Primary Care Unavailable McMorrow SNACK BAR CASHIER, Los Attending Unavailable Rico, Deondre Primary Care Unavailable Rico, Deondre Attending Unavailable Rico, Deondre Primary Care Unavailable Medications Current Medications Medication Drug Class(es) Dates Sig (Normalized) Sig (Original) amLODIPine 5 mg oral tablet (11 sources) Dihydropyridine Calcium Channel Sendy Start: 08-23-2024 End: 02-24-2025 take 1 tablet by mouth once daily Amlodipine 5 mg tablet Active 5 mg PO daily 90 February 24, 2025 5:14pm carvedilol 25 mg oral tablet (20 sources) alpha-Adrenergic Sendy, beta-Adrenergic Sendy Start: 10-14-2024 take 1 tablet by mouth twice daily at mealtime Carvedilol 25 mg tablet Active 25 mg PO TWICE A DAY 180 October 14, 2024 4:10pm must administer with a meal/food Start: 07-06-2021 End: 10-14-2024 take 1 tablet by mouth twice daily at mealtime Carvedilol 12.5 mg tablet Discontinued 12.5 mg PO TWICE A DAY 60 March 15, 2024 9:29am October 14, 2024 4:11pm must administer with a meal/food Start: 05-24-2019 End: 07-06-2021 take 1 tablet by mouth twice daily at mealtime Carvedilol (Coreg) 6.25 mg tablet Discontinued 6.25 mg PO TWICE A DAY 180 April 10, 2020 10:37am May 19, 2020 11:28am must administer with a meal/food Start: 05-20-2019 End: 05-24-2019 take 1 tablet by mouth twice daily Carvedilol 12.5 MG tablet Discontinued 12.5 mg PO TWICE A DAY 60 May 20, 2019 12:00am May 24, 2019 12:12pm Start: 03-29-2019 End: 05-20-2019 take 1 tablet by mouth twice daily Carvedilol 6.25 mg tablet Discontinued 6.25 mg PO TWICE A DAY 60 April 23, 2019 4:07pm May 20, 2019 9:26am cholecalciferol 0.025 mg oral capsule (6 sources) Vitamin D Start: 02-24-2025 take 1 capsule by mouth once daily Cholecalciferol (Vitamin D3) (Vitamin D3) 25 mcg (1,000 unit) capsule Active 25 ug PO daily February 24, 2025 12:00am vitamin b6 50 mg oral tablet (16 sources) Start: 08-01-2023 take 1 tablet by mouth once daily Pyridoxine (Vitamin B6) 50 mg tablet Active 50 mg PO DAILY August 01, 2023 12:00am Start: 05-23-2021 End: 11-26-2021 take 1 tablet by mouth once daily Pyridoxine (Vitamin B6) 50 mg tablet Discontinued 50 mg PO DAILY May 23, 2021 12:00am November 26, 2021 11:41am Completed/Discontinued Medications Medication Drug Class(es) Dates Sig (Normalized) Sig (Original) allopurinol 300 mg oral tablet (9 sources) Xanthine Oxidase Inhibitor Start: 11-19-2019 End: 05-19-2020 take 1 tablet by mouth once daily Allopurinol 300 mg tablet Discontinued 300 mg PO DAILY November 19, 2019 1:00am May 19, 2020 11:26am aspirin 81 mg delayed release oral tablet (20 sources) Platelet Aggregation Inhibitor, Nonsteroidal Anti-inflammatory Drug Start: 03-29-2019 End: 05-27-2022 take 1 tablet by mouth once daily Aspirin 81 mg tablet,delayed release (DR/EC) Discontinued 81 mg PO DAILY@0800 90 3 April 17, 2020 12:49pm May 19, 2020 11:28am clopidogrel 75 mg oral tablet (20 sources) P2Y12 Platelet Inhibitor Start: 03-30-2019 End: 08-01-2023 take 1 tablet by mouth once daily Clopidogrel 75 mg tablet Discontinued 75 mg PO DAILY 30 February 25, 2023 10:25pm August 01, 2023 9:26am colchicine 0.6 mg oral tablet (18 sources) Start: 05-19-2020 End: 11-26-2021 take 1 tablet by mouth once daily as needed Colchicine 0.6 mg tablet Discontinued 0.6 mg PO DAILY as needed May 23, 2021 4:18pm November 26, 2021 11:43am furosemide 20 mg oral tablet (20 sources) Loop Diuretic Start: 11-19-2019 End: 02-25-2023 Furosemide 20 mg tablet Discontinued 20 mg PO .COMPLEX as needed for SOB 90 May 27, 2022 11:10am February 25, 2023 2:10pm 20 mg PO PRN; Start: 03-29-2019 End: 11-19-2019 take 1 tablet by mouth once daily Furosemide 40 mg tablet Discontinued 40 mg PO DAILY 30 April 23, 2019 4:07pm November 19, 2019 12:27pm hydrALAZINE hydrochloride 50 mg oral tablet (20 sources) Arteriolar Vasodilator Start: 02-25-2023 End: 08-12-2024 take 1 tablet by mouth twice daily Hydralazine 50 mg tablet Discontinued 50 mg PO TWICE A DAY 180 July 15, 2024 8:34am August 12, 2024 4:26pm Start: 10-08-2021 End: 02-25-2023 take 1 tablet by mouth three times daily Hydralazine 50 mg tablet Discontinued 50 mg PO THREE TIMES A DAY 270 May 27, 2022 11:10am February 25, 2023 2:25pm Start: 09-14-2021 End: 10-08-2021 take 2 tablets by mouth three times daily Hydralazine 25 mg tablet Discontinued 50 mg PO THREE TIMES A DAY 90 September 14, 2021 5:30pm October 08, 2021 11:41am Start: 09-14-2021 End: 10-08-2021 take 50 mg by mouth three times daily Hydralazine Discontinued 50 MG PO THREE TIMES A DAY 90 September 14, 2021 4:30pm October 08, 2021 10:41am Start: 07-23-2021 End: 09-14-2021 take 1 tablet by mouth three times daily Hydralazine 25 mg tablet Discontinued 25 mg PO THREE TIMES A DAY 90 July 23, 2021 4:31pm September 14, 2021 5:30pm Start: 05-23-2021 End: 05-23-2021 take 1 tablet by mouth twice daily Hydralazine 10 mg tablet Discontinued 10 mg PO TWICE A DAY 60 May 23, 2021 4:20pm May 23, 2021 4:48pm Start: 12-07-2019 End: 07-23-2021 take 1 tablet by mouth three times daily Hydralazine 10 mg tablet Discontinued 10 mg PO THREE TIMES A DAY 90 May 23, 2021 4:48pm July 23, 2021 4:28pm Start: 11-19-2019 End: 12-07-2019 take 1 tablet by mouth twice daily Hydralazine 10 mg tablet Discontinued 10 mg PO TWICE A DAY 180 November 19, 2019 1:00am December 07, 2019 1:21pm hydroCHLOROthiazide 25 mg oral tablet (6 sources) Thiazide Diuretic Start: 08-12-2024 End: 08-23-2024 take 1 tablet by mouth once daily Hydrochlorothiazide 25 mg tablet Discontinued 25 mg PO daily 90 August 12, 2024 1:00am August 23, 2024 4:12pm lisinopril 20 mg oral tablet (20 sources) Angiotensin Converting Enzyme Inhibitor Start: 04-28-2019 End: 02-24-2025 take 1 tablet by mouth twice daily Lisinopril 20 mg tablet Discontinued 20 mg PO TWICE A DAY 60 March 08, 2024 8:37am February 24, 2025 5:19pm Start: 04-23-2019 End: 04-28-2019 take 2 tablets by mouth once daily Lisinopril 10 mg tablet Discontinued 20 mg PO DAILY April 23, 2019 3:32pm April 28, 2019 4:51pm Start: 04-23-2019 End: 04-28-2019 take 20 mg by mouth once daily Lisinopril Discontinued 20 MG PO DAILY April 23, 2019 2:32pm April 28, 2019 3:51pm Start: 03-30-2019 End: 04-23-2019 take 1 tablet by mouth once daily Lisinopril 10 MG tablet Discontinued 10 mg PO DAILY 30 0 March 30, 2019 12:00am April 23, 2019 3:32pm magnesium oxide 400 mg oral capsule (17 sources) Start: 02-25-2023 End: 08-31-2023 take 1 capsule by mouth once daily Magnesium Oxide 400 mg magnesium capsule Discontinued 400 mg PO DAILY February 25, 2023 12:00am August 31, 2023 2:15pm Start: 05-23-2021 End: 11-26-2021 take 1 tablet by mouth once daily Magnesium Oxide 400 mg magnesium tablet Discontinued 400 mg PO DAILY May 23, 2021 12:00am November 26, 2021 11:42am nitroglycerin 0.4 mg sublingual tablet (20 sources) Nitrate Vasodilator Start: 05-20-2019 End: 08-12-2024 Nitroglycerin 0.4 mg tablet, sublingual Discontinued 0.4 mg SL Q5M as needed for Cardiac/Chest Pain 21 12May 27, 2022 11:10am August 12, 2024 3:42pm Start: 05-20-2019 End: 05-27-2022 Nitroglycerin Discontinued 0 .4 MG SL Q5M May 23, 2021 3:20pm May 27, 2022 10:11am microencapsulated potassium chloride 20 meq extended release oral tablet (20 sources) Start: 03-30-2019 End: 08-31-2023 take 1 tablet by mouth once daily Potassium Chloride 20 mEq tablet,ER particles/crystals Discontinued 20 meq PO DAILY 90 3 April 10, 2020 10:37am May 19, 2020 11:28am rosuvastatin calcium 5 mg oral tablet (20 sources) HMG-CoA Reductase Inhibitor Start: 11-19-2019 End: 04-04-2025 take 1 tablet by mouth once daily Rosuvastatin 5 mg tablet Discontinued 5 mg PO DAILY 90 3 March 08, 2024 8:37am April 04, 2025 9:29am Start: 04-23-2019 End: 11-19-2019 take 1 tablet by mouth once daily Rosuvastatin 10 mg tablet Discontinued 10 mg PO DAILY April 23, 2019 12:00am November 19, 2019 12:17pm Problems Active Problems Problem Classification Problem Date Documented Da te Episodic/Chronic Acute and unspecified renal failure (9 sources) Injury of kidney; Translations: [Acute kidney failure, unspecified] 11-19-2019 Episodic Aortic; peripheral; and visceral artery aneurysms (19 sources) Aneurysm of thoracic aorta; Translations: [Thoracic aortic aneurysm (TAA)] Onset: 04-27-2025 02-24-2025 Chronic Chronic kidney disease (9 sources) Chronic kidney disease; Translations: [Chronic kidney disease, unspecified] 11-19-2019 Chronic Congestive heart failure; nonhypertensive (20 sources) Acute heart failure; Translations: [Heart failure, unspecified] Onset: 10-06-2024 11-19-2019 Chronic Coronary atherosclerosis and other heart disease (20 sources) History of non-ST segment elevation myocardial infarction; Translations: [Old myocardial infarction] Onset: 03-29-2019 11-19-2019 Chronic Comment on above: EF 35%, global hypok inesis Successful PTCA/JEMIMA mid LCX with a 2.5 x 24 Promus Synergy; Successful PTCA/JEMIMA mid RPL branch with a 2.25 x 12 Promus Synergy; Successful PTCA/JEMIMA mid RCA with a 4.0 x 24 Promus Synergy;Successful PCI with PTCA to the ostial PL Branch #1 with a 2.0 x 8 balloon; 85%-->50%, no dissectionPer Dr. Terry 05/19/19 @ [facility] Disorders of lipid metabolism (20 sources) Hyperlipidemia; Translations: [Hyperlipidemia, unspecified] Onset: 02-24-2025 05-23-2021 Chronic Essential hypertension (20 sources) Benign essential hypertension; Translations: [Essential (primary) hypertension] Onset: 02-24-2025 11-26-2021 Chronic Gout and other crystal arthropathies (9 sources) Acute gout; Translations: [Gout, unspecified] 11-19-2019 Chronic Hypertension with complications and secondary hypertension (11 sources) Hypertensive urgency ; Translations: [Hypertensive urgency] Onset: 11-25-2024 11-19-2019 Chronic Other circulatory disease (12 sources) History of cardiomyopathy; Translations: [Personal history of other diseases of the circulatory system] 08-12-2024 Episodic Other diseases of kidney and ureters (9 sources) Acute renal insufficiency; Translations: [Disorder of kidney and ureter, unspecified] 11-19-2019 Episodic Other hematologic conditions (9 sources) High troponin I level; Translations: [Other specified abnormalities of plasma proteins] 11-19-2019 Episodic Residual codes; unclassified (9 sources) Finding of limb structure; Translations: [Pallor] 05-23-2019 Episodic Unclassified (1 source) Thoracic aortic aneurysm, without rupture, unspecified; Translations: [Thoracic aortic aneurysm, without rupture, unspecified] Onset: 02-24-2025 Past or Other Problems Problem Classification Problem Date Documented Da te Episodic/Chronic Coronary atherosclerosis and other heart disease (11 sources) Stented coronary artery; Translations: [Presence of coronary angioplasty implant and graft] Onset: 04-29-2019 05-17-2021 Episodic Comment on above: Successful PTCA/JEMIMA mid LCX with a 2.5 x 24 Promus Synergy; Successful PTCA/JEMIMA mid RPL branch with a 2.25 x 12 Promus Synergy; Successful PTCA/JEMIMA mid RCA with a 4.0 x 24 Promus Synergy;Successful PCI with PTCA to the ostial PL Branch #1 with a 2.0 x 8 balloon; 85%-->50%, no dissectionPer Dr. Terry 05/19/19 @ [facility] Other circulatory disease (2 sources) Personal history of other diseases of the circulatory system; Translations: [Personal history of other diseases of the circulatory system] Onset: 10-06-2024 Episodic Results Test Name Value Interpretation Reference Range Facility PSA,Total - Annual Screenon 05-20-2025 PSA,TOT SCREEN 0.92 ng/mL Normal 0.02-4.00 [facility] Comment on above: Result Comment: This test was performed using the [employer] tPSA method. Measured values of a patient??sample can vary depending on the testing procedure used. PSA values determined on patient samples by different testing procedures cannot be used interchangeably. If there is a change in PSA assays while monitoring therapy, sequential testing should be performed to confirm baseline values. Performed By: #### L 501.9910 #### [facility] [address] [place], [place], [id number] CREATININE FINGERSTICKon Creatinine [Mass/Vol] 1.1 mg/dL Normal 0.70-1.30 [facility] Comment on above: Performed By: #### L 9100.0200 #### [facility] [address] [place], [address] EGFR WB > 60.0000 Normal >60 [facility] Comment on above: Performed By: #### L 9100.0200 #### [facility] [address] [place], [address] CTA Chest W/WO Contraston CTA Chest W/WO Contrast [facility] Imaging Services [address] [place] [address] CTA Chest W/WO Contrast MR#: [id number] Acct: [id number] Name: FRANCISCO AMATO Rep #: [id number] : 1960 M 65 From: Raymond Quinones MD PCP: Dr. Deondre Rico MD Status: REG CLI Study: CTA Chest W/WO Contrast Date of Exam: 04/22/25 Exam# [id number] Ordering Dr: Negin Anguiano PROCEDURE: CTA CHEST W/WO CONTRAST 04/22/2025 REASON FOR EXAM: KNOWN AAA MONITORING TECHNIQUE: CTA CHEST W/WO CONTRAST Multiplanar Sagittal and Coronal images were obtained. CONTRAST: Isovue 370 VOLUME: 90 mL One or more dose reduction techniques were used (e.g., Automated exposure control, adjustment of the mA and/or kV according to patient size, use of iterative reconstruction technique). RADIATION DOSE SUMMARY: CTDlvol: 29 mGy DLP: 665 mGycm COMPARISON: 10/14/2024 FINDINGS: Unremarkable base of neck and axilla. Thoracic spine degeneration. Normal esophagus. Upper limits of normal heart size. Mildly tortuous thoracic aorta. Minimal calcified plaque. Dilated ascending aorta, maximum cross- section 4.2 x 4.2 cm. 4 vessel arch, the left vertebral artery arises directly off the arch. No central pulmonary embolism. Thoracic spine degeneration. No acute chest wall findings. No acute upper abdominal findings. Central airways are patent. Slight dependent atelectasis. No consolidation, effusion, or pneumothorax. . CT/CTA Chest W/WO Contrast IMPRESSION: Dilated ascending aorta, 4.2 cm maximum cross-section, this is unchanged from the previous examination. No acute chest findings Reading Location: [place] [address] CC: Dr. Deondre Rico MD; TEGAN Anton Principal Technical Writer: Signed Normal [facility] [facility] Creatinine measurement at be dsideOrdered By: Negin Anguiano on 04-22-2025 Creatinine [Mass/Vol] 1.1 mg/dL 0.70-1.30 [facility] EGFROrdered By: Negin justice on 04-22-2025 GFR/1.73 sq M.predicted among non-blacks MDRD (S/P/Bld) [Vol rate/Area] mL/min/{1.73_m2} >60 [facility] Abdominal aortic duplex scan reportOrdered By: Deondre Boucher on 04-11-2025 US.doppler Thoracic and abdominal aorta [facility] [address] [place] [address] Abd Aortic/IVC Duplex scan 04/08/25 0809 MR#: [id number] Acct: [id number] Name: FRANCISCO AMATO Rep #:[id number] : 1960 65 From: Deondre Martínez Attending Dr: TEGAN Anton Status: REG CLI Ordering Dr: Negin Anguiano PA Date: 04/08/25 Location: CVS Sex: M C Admitted: Reason For Study Reason For Study: R/O AAA Aorta Measurements Aorta Doppler Measurements Proximal aorta measures1.69x1.80cm . in cross-sectional axis.Peak systolic flow velocities within the proximal aorta Proximal aorta measures1.61cm. in longitudinal axis. measure 92.2 cm/sec. Mid aorta measures1.83x1.76cm . in cross-sectional axis. Peak systolic flow velocities within the mid aorta measure Mid aorta measures1.81cm. in longitudinal axis. 99.5 cm/sec. Distal aorta measures1.64x1.65cm . in cross-sectional axis. Peak systolic flow velocities within the distal aorta Distal aorta measures1.69cm. in longitudinal axis. measure 66.9 cm/sec. Left Iliac Artery Left iliac artery measures 1.29x1.21 cm. in the cross-sectional axis. Left iliacartery measures 1.22 cm. in the longitudinal axis. Peak systolic velocity in the left iliac artery measures 79.6cm/sec. Right Iliac Artery Right iliac artery measures 1.25x1.25 cm. in the cross-sectional axis. Right iliac artery measures 1.30 cm. in the longitudinal axis. Peak systolic velocity in the right iliac artery measures 70.5 cm/sec. Procedure Aorta IVC Iliac vasculature or bypass grafts [id number]. Exam performed in department. VL/Abd Aortic/IVC Duplex scan Interpretation Summary Aorta patent, normal caliber Right iliac artery patent, ectasia to 1.25 cm Left iliac artery patent, ectasia to 1.29 cm __ Ordering Physician: Negin Anguiano Referring Physician: Deondre Rico MD Performed By: Traci Corona RVT 04/11/255 Date _ Deondre Boucher MD CC: Dr. Deondre Rico MD; TEGAN Anton ~ Date Dictated: 04/08/25808 Date Transcribed: 04/11/251224 Principal Technical Writer: Signed [facility] Work Phone: Abd Aortic/IVC Duplex scanon 04-08-2025 Abd Aortic/IVC Duplex scan [facility] Cardiovascular Services [address] [place] [address] Abd Aortic/IVC Duplex scan 04/08/25 08 MR#: [id number] Acct: [id number] Name: FRANCISCO AMATO Rep #: [id number] : 1960 65 From: Deondre Boucher MD Attending Dr: TEGAN Anton Status: REG CLI Ordering Dr: Negin Anguiano Date: 03/29 10/23 Location: CVS Sex: M C Admitted: Reason For Study Reason For Study: R/O AAA Aorta Measurements Aorta Doppler Measurements Proximal aorta measures1.69x1.80cm . in cross-sectional axis.Peak systolic flow velocities within the proximal aorta Proximal aorta measures1.61cm. in longitudinal axis. measure 92.2 cm/sec. Mid aorta measures1.83x1.76cm . in cross-sectional axis. Peak systolic flow velocities within the mid aorta measure Mid aorta measures1.81cm. in longitudinal axis. 99.5 cm/sec. Distal aorta measures1.64x1.65cm . in cross-sectional axis. Peak systolic flow velocities within the distal aorta Distal aorta measures1.69cm. in longitudinal axis. measure 66.9 cm/sec. Left Iliac Artery Left iliac artery measures 1.29x1.21 cm. in the cross-sectional axis. Left iliac artery measures 1.22 cm. in the longitudinal axis. Peak systolic velocity in the left iliac artery measures 79.6 cm/sec. Right Iliac Artery Right iliac artery measures 1.25x1.25 cm. in the cross-sectional axis. Right iliac artery measures 1.30 cm. in the longitudinal axis. Peak systolic velocity in the right iliac artery measures 70.5 cm/sec. Procedure Aorta IVC Iliac vasculature or bypass grafts [id number]. Exam performed in department. VL/Abd Aortic/IVC Duplex scan Interpretation Summary Aorta patent, normal caliber Right iliac artery patent, ectasia to 1.25 cm Left iliac artery patent, ectasia to 1.29 cm __ Ordering Physician: Negin Anguiano Referring Physician: Deondre Rico MD Performed By: Traci Corona, GREGT 04/11/25 1225 Date Deondre Boucher MD CC: Dr. Deondre Rico MD; TEGAN Anton Date Dictated: 04/08/25 0809 Date Transcribed: 04/11/25 1225 Principal Technical Writer: Signed Normal [facility] Anion gap in Serum or Plasma Ordered By: Mary Mcghee on 03-11-2025 Anion gap [Moles/Vol] 11 mmol/L 5-15 [facility] BUN/creatinine ratioOrdered By: Mary Mcghee on 03-11-2025 Urea nitrogen/Creatinine [Mass ratio] 16.7 mg/mg 10-20 [facility] Bilirubin, totalOrdered By: Mary Mcghee on 03-11-2025 Bilirubin [Mass/Vol] 0.55 mg/dL 0.00-1.30 [facility] Calculated very low density lipoprotein (VLDL) cholesterol measurementOrdered By: Mary Mcghee on 03-11-2025 Calculated very low density lipoprotein (VLDL) cholesterol measurement 21 mg/dL 5-40 [facility] Carbon dioxide, total [Moles /volume] in Central venous bloodOrdered By: Mary Mcghee on 03-11-2025 CO2 [Moles/Vol] 22.1 mmol/L 21.0-32.0 [facility] Chloride assayOrdered By: Enoch Mcghee on 03-11-2025 Chloride [Moles/Vol] 107 mmol/L 98-108 [facility] Comprehensive Metabolic Prof ilon 03-11-2025 Albumin [Mass/Vol] 4.4 g/dL Normal 3.4-4.8 [facility] Comment on above: Performed By: #### L 501.9910 #### [facility] [address] [place], [address] Albumin/Globulin [Mass ratio] 1.5 {ratio} Normal 0.9-2.4 [facility] Comment on above: Performed By: #### L 501.9910 #### [facility] [address] [place], [address] ALK PHOS 81 U/L Normal 40-129 [facility] Comment on above: Performed By: #### L 501.9910 #### [facility] [address] [place], [address] ALT [Catalytic activity/Vol] 28 U/L Normal <=46 [facility] Comment on above: Performed By: #### L 501.9910 #### [facility] [address] [place], [address] AST [Catalytic activity/Vol] 35 U/L Normal <=37 [facility] Comment on above: Result Comment: Hemo lysis present, Results??could be affected. ?? Performed By: #### L 501.9910 #### [facility] [address] [place], [address] Bilirubin [Mass/Vol] 0.55 mg/dL Normal 0.00-1.30 [facility] Comment on above: Performed By: #### L 501.9910 #### [facility] [address] [place], [address] BUN/CRE 16.7 RATIO Normal 10-20 [facility] Comment on above: Performed By: #### L 501.9910 #### [facility] [address] [place], [address] Calcium [Mass/Vol] 9.2 mg/dL Normal 7.6-11.0 [facility] Comment on above: Performed By: #### L 501.9910 #### [facility] [address] [place], [address] Chloride [Moles/Vol] 107 mmol/L Normal 98-108 [facility] Comment on above: Performed By: #### L 501.9910 #### [facility] [address] [place], [address] CO2 [Moles/Vol] 22.1 mmol/L Normal 21.0-32.0 [facility] Comment on above: Performed By: #### L [id number] #### [facility] [address] [place], [address] Creatinine [Mass/Vol] 1.15 mg/dL Normal 0.70-1.20 [facility] Comment on above: Performed By: #### L [id number] #### [facility] [address] [place], [address] GAP 11 Normal 5-15 [facility] Comment on above: Performed By: #### L [id number] #### [facility] [address] [place], [address] GFR/1.73 sq M.predicted among non-blacks MDRD (S/P/Bld) [Vol rate/Area] 72 mL/min/{1.73_m2} Normal >60 [facility] Comment on above: Result Comment: mL/m in/1.73m2 CKD-EPI Creatinine Equation (2020) Performed By: #### L [id number] #### [facility] [address] [place], [address] Globulin (S) [Mass/Vol] 2.9 g/dL Normal 2.2-4.2 [facility] Comment on above: Performed By: #### L [id number] #### [facility] [address] [place], [address] Glucose [Mass/Vol] 92 mg/dL Normal 70-99 [facility] Comment on above: Performed By: #### L [id number] #### [facility] [address] [place], [address] Potassium [Moles/Vol] 4.2 mmol/L Normal 3.3-5.1 [facility] Comment on above: Result Comment: Hemo lysis present, Results??could be affected. ?? Performed By: #### L [id number] #### [facility] [address] [place], [address] Sodium [Moles/Vol] 140 mmol/L Normal 133-145 [facility] Comment on above: Performed By: #### L [id number] #### [facility] [address] [place], [place], [id number] T PROT 7.3 g/dL Normal 5.9-8.4 [facility] Comment on above: Performed By: #### L [id number] #### [facility] [address] [place], [place], [id number] Urea nitrogen [Mass/Vol] 19 mg/dL Normal 4-19 [facility] Comment on above: Performed By: #### L [id number] #### [facility] [address] [place], [place], [id number] Glomerular filtration rate ( GFR) estimation/1.73 sq m using serum, plasma, or whole bOrdered By: Mary Mcghee on 03-11-2025 GFR/1.73 sq M.predicted among non-blacks MDRD (S/P/Bld) [Vol rate/Area] 72 mL/min/{1.73_m2} >60 [facility] Comment on above: mL/min/1.73m2 CKD-EP I Creatinine Equation (2020) LDL calc ser/plasOrdered By: Mary Mcghee on 03-11-2025 Cholesterol in LDL [Mass/Vol] 55 mg/dL [facility] Comment on above: Kacyfdwmuj=415-897 m g/dL & Higher Xdwm=128 mg/dL or greater Laboratory - Chemistry and C hemistry - challengeOrdered By: Mary Mcghee on 03-11-2025 AST [Catalytic activity/Vol] 35 U/L <38 [facility] Comment on above: Hemolysis present, R esults could be affected. Lipid Profileon 03-11-2025 CHOL:HDL 3.36 Normal [facility] Comment on above: Performed By: #### L 501.9910 #### [facility] [address] [place], [place], [id number] Cholesterol [Mass/Vol] 109 mg/dL Normal <=200 [facility] Comment on above: Result Comment: Chol esterol level, Desirable <200 mg/dL Borderline high cholesterol 200-239 mg/dL High cholesterol >=240 mg/dL Recommendations of the NCEP Adult Treatment Panel for the following risk-cutoff thresholds for the [place] population. Performed By: #### L 501.9910 #### [facility] [address] [facility] [address] Cholesterol in HDL [Mass/Vol] 32 mg/dL Low [facility] Comment on above: Result Comment: Ching onal Cholesterol Education Program (NCEP) guidelines: <40 mg/dL: Low HDL-cholesterol (major risk factor for CHD) >= 60 mg/dL: High HDL-cholesterol (negative risk factor for CHD) HDL-cholesterol is affected by a number of factors, e.g. smoking, exercise, hormones, sex and age. Performed By: #### L [id number] #### [facility] [address] [facility] [address] Cholesterol in LDL [Mass/Vol] 55 mg/dL Normal [facility] Comment on above: Result Comment: Bord hargaq=884-511 mg/dL Higher Sdls=905 mg/dL or greater Performed By: #### L [id number] #### [facility] [address] [place], [address] Cholesterol in VLDL [Mass/Vol] 21 mg/dL Normal 5-40 [facility] Comment on above: Performed By: #### L 501.9910 #### [facility] [address] [place], [address] Triglyceride [Mass/Vol] 106 mg/dL Normal [facility] Comment on above: Result Comment: The drugs N-Acetylcysteine and Metamizole may falsely depress this assay. Normal range: <150 mg/dL Borderline High: 150-199 mg/dL High: 200-499 mg/dL Very High: >500 mg/dL Performed By: #### L 501.9910 #### [facility] [address] [place], [address] Potassium measurement (mass/ volume)Ordered By: Mary Mcghee on 03-11-2025 Potassium (Unsp spec) [Mass/Vol] 4.2 mmol/L 3.3-5.1 [facility] Comment on above: Hemolysis present, R esults could be affected. Screening total cholesterol/ high density lipoprotein (HDL) cholesterol ratioOrdered By: Mary Mcghee on 03-11-2025 Cholesterol.total/Cholest enrico in HDL [Mass ratio] 3.36 {ratio} [facility] Serum creatinine measurement (mass/volume)Ordered By: Mary Mcghee on 03-11-2025 Creatinine [Mass/Vol] 1.15 mg/dL 0.70-1.20 [facility] Serum globulin measurementOr dered By: Mary Mcghee on 03-11-2025 Globulin (S) [Mass/Vol] 2.9 g/dL 2.2-4.2 [facility] Serum glucose measurement (m ass/volume)Ordered By: Mary Mcghee on 03-11-2025 Glucose [Mass/Vol] 92 mg/dL 70-99 [facility] Serum or plasma alanine mayorga otransferase (ALT) measurementOrdered By: Mary Mcghee on 03-11-2025 ALT [Catalytic activity/Vol] 28 U/L <47 [facility] Serum or plasma albumin irma urement (mass/volume)Ordered By: Mary Mcghee on 03-11-2025 Albumin [Mass/Vol] 4.4 g/dL 3.4-4.8 [facility] Serum or plasma albumin/glob ulin mass ratioOrdered By: Mary Mcghee on 03-11-2025 Albumin/Globulin [Mass ratio] 1.5 {ratio} 0.9-2.4 [facility] Serum or plasma alkaline lili sphatase measurementOrdered By: Mary Mcghee on 03-11-2025 ALP [Catalytic activity/Vol] 81 U/L 40-129 [facility] Serum or plasma calcium irma urement (mass/volume)Ordered By: Mary Mcghee on 03-11-2025 Calcium [Mass/Vol] 9.2 mg/dL 7.6-11.0 [facility] Serum or plasma cholesterol in HDL measurement (mass/volume)Ordered By: Mary Mcghee on 03-11-2025 Cholesterol in HDL [Mass/Vol] 32 mg/dL Low >40 [facility] Comment on above: National Cholesterol Education Program (NCEP) guidelines:<40 mg/dL: Low HDL-cholesterol (major risk factor for CHD)>= 60 mg/dL: High HDL-cholesterol (negative risk factor for CHD)HDL-cholesterol is affected by a number of factors, e.g. smoking, exercise, hormones, sex and age. Serum or plasma cholesterol measurement (mass/volume)Ordered By: Mary Mcghee on 03-11-2025 Cholesterol [Mass/Vol] 109 mg/dL <201 [facility] Comment on above: Cholesterol level, D esirable <200 mg/dLBorderline high cholesterol 200-239 mg/dLHigh cholesterol >=240 mg/dLRecommendations of the NCEP Adult Treatment Panel for the following risk-cutoff thresholds for the [place] population. Serum or plasma urea nitroge n measurement (mass/volume)Ordered By: Mary Mcghee on 03-11-2025 Urea nitrogen [Mass/Vol] 19 mg/dL 4-19 [facility] Sodium levelOrdered By: Jim Mcghee on 03-11-2025 Sodium [Moles/Vol] 140 mmol/L 133-145 [facility] Total proteinOrdered By: Morgan Mcghee on 03-11-2025 Protein [Mass/Vol] 7.3 g/dL 5.9-8.4 [facility] Triglycerides measurementOrd ered By: Mary Mcghee on 03-11-2025 Triglyceride [Mass/Vol] 106 mg/dL <199 [facility] Comment on above: The drugs N-Acetylcy steine and Metamizole may falsely depress this assay. Normal range: <150 mg/dLBorderline High: 150-199 mg/dLHigh: 200-499 mg/dLVery High: >500 mg/dL Cardiology Visit Reporton Cardiology Visit Report [facility] [address] [place] [address] OFFICE VISIT Date of Service: 02/24/25 MR#: [id number] Acct: [id number] Name: FRANCISCO AMATO Rep #: [id number] 4 : 1960 Provider: Dr. Mary Mcghee MD Age/Sex: 64/M Location: [facility] Status: Signed HPI HPI History of Present Illness Details: This gentleman with history of coronary artery disease status post percutaneous intervention with JEMIMA to the left circumflex/obtuse marginal and RCA, ischemic cardiomyopathy with LVEF having since recovered, hypertension and thoracic aortic aneurysm is here for follow-up visit. Denies complaints. No chest pains. No shortness of breath. No palpitations. No orthopnea or PND. No ankle edema. Intake Vital Signs 08/12/24 08:21 02/24/25 09:32 Height 5 ft 11 in 5 ft 11 in Weight: 219 lb BMI 30.5 BP 130/75 H Blood Pressure Location Lt brachial Position Sitting Respiration 16 Pulse 66 Pulse Source Monitor Intake Visit Reasons: 6 M Solar [employer] Required: No Accompanied by: Self Is patient in pain?: No Allergies No Known Allergies Allergy (Verified 02/24/25 14:46) Medications ???Medication ???Instructions ???Recorded ???Confirmed ???Type aspirin 81 mg tablet,delayed 81 mg PO DAILY@0800 #90 tabs 05/2702/24/25 Rx release pyridoxine (vitamin B6) 50 mg 50 mg PO DAILY 08/01/23 02/24/25 H istory tablet lisinopril 20 mg tablet 20 mg PO BID #60 tabs 03/08/24 Rx rosuvastatin 5 mg tablet 5 mg PO DAILY #90 tabs 03/08/24 Rx nitroglycerin 0.4 mg sublingual 0.4 mg sublingual Q5M PRN 08/12/24 02/24/25 Rx tablet Cardiac/Chest Pain ##25 amlodipine 5 mg tablet 5 mg PO QDAY #90 tabs 08/23/24 Rx carvedilol 25 mg tablet 25 mg PO BID #180 tabs 10/14/24 Rx cholecalciferol (vitamin D3) 25 25 mcg PO QDAY 02/24/25 02/24/25 H istory mcg (1,000 unit) capsule (Vitamin D3) Ejection fraction %: 65 PFSH Medical History Ascending aorta dilatation Benign essential HTN HLD (hyperlipidemia) Presence of stent in coronary artery ( 05/19/19) History of non-ST elevation myocardial infarction (NSTEMI) (03/2019) Chronic systolic (congestive) heart failure CKD (chronic kidney disease) Ischemic cardiomyopathy Acute kidney injury Atherosclerosis of [place] coronary artery of [place] heart without angina pectoris Hypertensive urgency Acute renal insufficiency Surgical History Presence of coronary angioplasty implant and graft ( 05/19/19) History of left heart catheterization Family History Father Heart disease in early 70s Hypertension Mother Heart disease, Onset Age: 65 smoker Brother Heart disease, Onset Age: 60 Social History Smoking Status: Never smoker Smokeless tobacco user: chewing tobacco alcohol intake: never substance use type: does not use caffeine: Yes Type: carbonated beverages Number of servings: 1 ROS Const Const: Negative for fatigue, weakness, headache(s) or weight gain ENT ENT: Negative for headache(s), dizziness, Nosebleed/epistaxis or balance problems Cardio Chest Pain: No Palpitations: No Edema: None Muscle aches with walking: None Resp Respiratory: Negative for SOB with activity, SOB at rest or SOB orthopnea SOB lying down GI GI: Negative nausea, vomiting or heartburn Musc Musc: Positive for joint pain (Occ Gout); Negative for muscle aches/ myalgia, muscle weakness or balance problems Neuro Neuro: Negative for dizziness, lightheadedness, near syncope, syncope, headache(s) or weakness Endo Endo: Negative for fatigue Cardiology Exam Const Appearance: comfortable and no acute distress Nutritional Appearance: well nourished Neck Neck: no JVD Carotids: Negative bruit Chest Auscultation: Bilateral: Clear to Auscultation Cardio Rate: regular rate Rhythm: regular rhythm Heart sounds: S1 normal and S2 normal Neuro General: patient alert, patient awake and patient oriented x3 Extremities Lower Extremity Edema: None: Bilateral Supplemental Info Supplemental Information Echocardiogram 09/07/2024: Moderate LV concentric hypertrophy. LVEF 65%. Stage I diastolic dysfunction. Mild (1+) mitral valve insufficiency. Mild tricuspid valve insufficiency. Mildly dilated aortic root. Stress Test 09/02/2024: Impression: 1. Technically adequate (percent predicted maximal heart rate greater than 85%) exercise tolerance test. Hypertensive blood pressure response to exercise. 2. Peak exercise ECG with no ischemic changes 3. No significant cardiac dysrhythmias n (more content not included)... Normal [facility] Absolute lymphocyte countOrd ered By: Deondre Rico on 11-12-2024 Lymphocytes Auto (Unsp spec) [#/Vol] 1.02 10*3/uL 0.83-4.51 [facility] Absolute neutrophil countOrd ered By: Deondre Rico on 11-12-2024 Neutrophils (Bld) [#/Vol] 3.7 10*3/uL 2.0-7.7 [facility] Albumin to globulin ratioOrd ered By: Deondre Rico on 11-12-2024 Albumin/Globulin [Mass ratio] 1.2 {ratio} 0.9-2.4 [facility] Automated lymphocyte count a s percentage of total leukocytesOrdered By: Deondre Rico on 11-12-2024 Lymphocytes/100 WBC Auto (Unsp spec) 18.6 % Low 19-41 [facility] BNP (brain natriuretic pepti de measurement)Ordered By: Deondre Rico on 11-12-2024 Natriuretic peptide B (Bld) [Mass/Vol] 14.2 pg/mL 0-100 [facility] BNP,B-Type NATRIURETIC PEPTI Fly 11-12-2024 Natriuretic peptide B (Bld) [Mass/Vol] 14.2 pg/mL Normal 0-100 [facility] Comment on above: Performed By: #### L 501.9910 #### [facility] [address] [place] [address], [address] Basophil percentageOrdered B y: Deondre Rico on 11-12-2024 Basophils/100 WBC (Bld) 0.5 % 0-1 [facility] Bilirubin, totalOrdered By: Deondre Rico on 11-12-2024 Bilirubin [Mass/Vol] 0.60 mg/dL 0.20-1.00 [facility] Comment on above: For patients on eltr ombopag therapy, use of Dimension [place] TBIL is not recommended. Blood urea nitrogen (BUN)/cr eatinine ratioOrdered By: Deondre Rico on 11-12-2024 Urea nitrogen/Creatinine [Mass ratio] 16.4 mg/mg 10-20 [facility] CBC W/Diff, Automatedon 10-30 Absolute Lymph 1.02 X10 3/uL Normal 0.83-4.51 [facility] Comment on above: Order Comment: Order Date: 06/16/24 Order Info: 0184- - CBCD Performed By: #### L 501.1400, L502.0250, L100.0100 #### [facility] [address] [place], [address] Absolute Neut 3.7 X10 3/uL Normal 2.0-7.7 [facility] Comment on above: Order Comment: Order Date: 06/16/24 Order Info: 0184- - CBCD Performed By: #### L 501.1400, L502.0250, L100.0100 #### [facility] [address] [place], [address] Basophils/100 WBC (Bld) 0.5 % Normal 0-1 [facility] Comment on above: Order Comment: Order Date: 06/16/24 Order Info: 0184- - CBCD Performed By: #### L 501.1400, L502.0250, L100.0100 #### [facility] [address] [place], [address] Eosinophils/100 WBC (Bld) 6.0 % High 0-5 [facility] Comment on above: Order Comment: Order Date: 06/16/24 Order Info: 0184-1 - CBCD Performed By: #### L 501.1400, L502.0250, L100.0100 #### [facility] [address] [place], [address] Erythrocyte distribution width (RBC) [Ratio] 12.9 % Normal 11.6-14.6 [facility] Comment on above: Order Comment: Order Date: 06/16/24 Order Info: 0184- - CBCD Performed By: #### L 501.1400, L502.0250, L100.0100 #### [facility] [address] [place], [address] Hematocrit (Bld) [Volume fraction] 43.4 % Normal 40-54 [facility] Comment on above: Order Comment: Order Date: 06/16/24 Order Info: 018- - CBCD Performed By: #### L 501.1400, L502.0250, L100.0100 #### [facility] [address] [place], [address] Hemoglobin (Bld) [Mass/Vol] 14.9 g/dL Normal 13.0-16.5 [facility] Comment on above: Order Comment: Order Date: 06/16/24 Order Info: 018- - CBCD Performed By: #### L 501.1400, L502.0250, L100.0100 #### [facility] [address] [place], [address] IG% 0.400 Normal 0.0-0.9 [facility] Comment on above: Order Comment: Order Date: 06/16/24 Order Info: 018- - CBCD Result Comment: IG% - Immature Granulocytes (promyelocytes, myelocytes and metamyelocytes) > 1% indicates that a LEFT SHIFT is Present. Performed By: #### L 501.1400, L502.0250, L100.0100 #### [facility] [address] [place], [address] Lymphocytes/100 WBC (Bld) 18.6 % Low 19-41 [facility] Comment on above: Order Comment: Order Date: 06/16/24 Order Info: 018- - CBCD Performed By: #### L 501.1400, L502.0250, L100.0100 #### [facility] [address] [place], [address] MCH (RBC) [Entitic mass] 31.3 pg Normal 27.0-32.0 [facility] Comment on above: Order Comment: Order Date: 06/16/24 Order Info: 0184-1 - CBCD Performed By: #### L 501.1400, L502.0250, L100.0100 #### [facility] [address] [place], [address] MCHC (RBC) [Mass/Vol] 34.3 g/dL Normal 32-36 [facility] Comment on above: Order Comment: Order Date: 06/16/24 Order Info: 0184-1 - CBCD Performed By: #### L 501.1400, L502.0250, L100.0100 #### [facility] [address] [place], [address] MCV (RBC) [Entitic vol] 91.2 fL Normal 80-94 [facility] Comment on above: Order Comment: Order Date: 06/16/24 Order Info: 0184-1 - CBCD Performed By: #### L 501.1400, L502.0250, L100.0100 #### [facility] [address] [place], [address] Monocytes/100 WBC (Bld) 7.3 % Normal 0-10 [facility] Comment on above: Order Comment: Order Date: 06/16/24 Order Info: 0184-1 - CBCD Performed By: #### L 501.1400, L502.0250, L100.0100 #### [facility] [address] [place], [address] Neutrophils/100 WBC (Bld) 67.2 % Normal 47-70 [facility] Comment on above: Order Comment: Order Date: 06/16/24 Order Info: 0184-1 - CBCD Performed By: #### L 501.1400, L502.0250, L100.0100 #### [facility] [address] [place], [address] Nucleated RBC (Bld) [#/Vol] 0 10*3/uL Normal 0-5 [facility] Comment on above: Order Comment: Order Date: 06/16/24 Order Info: 0184-1 - CBCD Performed By: #### L 501.1400, L502.0250, L100.0100 #### [facility] [address] [place], [address] Platelet mean volume (Bld) [Entitic vol] 10.6 fL Normal 6.2-12.0 [facility] Comment on above: Order Comment: Order Date: 06/16/24 Order Info: 0184-1 - CBCD Performed By: #### L 501.1400, L502.0250, L100.0100 #### [facility] [address] [place], [address] Platelets (Bld) [#/Vol] 134 10*3/uL Low 150-450 [facility] Comment on above: Order Comment: Order Date: 06/16/24 Order Info: 0184-1 - CBCD Performed By: #### L 501.1400, L502.0250, L100.0100 #### [facility] [address] [place], [address] RBC (Bld) [#/Vol] 4.76 10*6/uL Normal 4.6-6.2 [facility] Comment on above: Order Comment: Order Date: 06/16/24 Order Info: 0184-1 - CBCD Performed By: #### L 501.1400, L502.0250, L100.0100 #### [facility] [address] [place], [address] RDW SD 42.6 fl Normal 35.1-43.9 [facility] Comment on above: Order Comment: Order Date: 06/16/24 Order Info: 0184-1 - CBCD Performed By: #### L 501.1400, L502.0250, L100.0100 #### [facility] [address] [place], [address] WBC (Bld) [#/Vol] 5.5 10*3/uL Normal 4.4-11.0 [facility] Comment on above: Order Comment: Order Date: 06/16/24 Order Info: 0184-1 - CBCD Performed By: #### L 501.1400, L502.0250, L100.0100 #### [facility] [address] [place], [address] Carbon dioxide measurementOr dered By: Deondre Rico on 11-12-2024 CO2 [Moles/Vol] 27.0 mmol/L 21.0-32.0 [facility] Chloride measurementOrdered By: Deondre Rico on 11-12-2024 Chloride [Moles/Vol] 109 mmol/L High 98-107 [facility] Cholesterolon 11-12-2024 Cholesterol [Mass/Vol] 105 mg/dL Normal 200 [facility] Comment on above: Order Comment: Order Date: 11/12/24 Order Info: [id number] - CMP Order Date: 05/14/24 Order Info: [id number] - URIC Order Info: 2092-11 - CHOL Order Info: [id number] - MG Order Info: 9 - HDL Result Comment: <200 mg/dL Desirable 200-240 mg/dL Borderline >240 mg/dL High Risk Performed By: #### L 501.5200, L501.6400, L501.4900, L506.1000 #### [facility] [address] [place], [address] Comprehensive Metabolic Prof ilon 11-12-2024 Albumin [Mass/Vol] 4.1 g/dL Normal 3.2-5.0 [facility] Comment on above: Order Comment: Order Date: 11/12/24Order Info: [id number] - CMPOrder Date: 05/14/24Order Info: 308-1 - URICOrder Info: [id number] - CHOLOrder Info: [id number] - MGOrder Info: 2085-05 - HDL Performed By: #### L 501.9910 #### [facility] [address] [facility] [place], [address] Albumin/Globulin [Mass ratio] 1.2 {ratio} Normal 0.9-2.4 [facility] Comment on above: Order Comment: Order Date: 11/12/24Order Info: [id number] - CMPOrder Date: 05/14/24Order Info: [id number] - URICOrder Info: [id number] - CHOLOrder Info: [id number] - MGOrder Info: 2085-05 - HDL Performed By: #### L 501.9910 #### [facility] [address] [place], [address] ALK P 82 U/L Normal 45-117 [facility] Comment on above: Order Comment: Order Date: 11/12/24Order Info: [id number] - CMPOrder Date: 05/14/24Order Info: 3084-1 - URICOrder Info: [id number] - CHOLOrder Info: - MGOrder Info: 2085-05 - HDL Performed By: #### L 501.9910 #### [facility] [address] [place], [address] ALT [Catalytic activity/Vol] 30 U/L Normal 16-61 [facility] Comment on above: Order Comment: Order Date: 11/12/24Order Info: 0786-1 - CMPOrder Date: 05/14/24Order Info: 3084-1 - URICOrder Info: [id number] - CHOLOrder Info: [id number] - MGOrder Info: 2085-05 - HDL Performed By: #### L 501.9910 #### [facility] [address] [facility] [place], [address] AST [Catalytic activity/Vol] 30 U/L Normal 15-37 [facility] Comment on above: Order Comment: Order Date: 11/12/24Order Info: [id number] - CMPOrder Date: 05/14/24Order Info: [id number]- - URICOrder Info: [id number] - CHOLOrder Info: [id number] - MGOrder Info: 2085-05 - HDL Performed By: #### L 501.9910 #### [facility] [address] [place], [place], [address] Bilirubin [Mass/Vol] 0.60 mg/dL Normal 0.20-1.00 [facility] Comment on above: Order Comment: Order Date: 11/12/24Order Info: 86-1 - CMPOrder Date: 05/14/24Order Info: [id number] - URICOrder Info: 2092-11 - CHOLOrder Info: - MGOrder Info: 2085-05 - HDL Result Comment: For patients on eltrombopag therapy, use of Dimension [place] TBIL is not recommended. Performed By: #### L 501.9910 #### [facility] [address] [place], [address] BUN/CRE 16.4 RATIO Normal 10-20 [facility] Comment on above: Order Comment: Order Date: 11/12/24Order Info: 785-1 - CMPOrder Date: 05/14/24Order Info: [id number] - URICOrder Info: [id number] - CHOLOrder Info: - MGOrder Info: 2085-05 - HDL Performed By: #### L 501.9910 #### [facility] [address] [place], [address] CA,Total 9.4 mg/dL Normal 8.5-10.1 [facility] Comment on above: Order Comment: Order Date: 11/12/24Order Info: 86-1 - CMPOrder Date: 05/14/24Order Info: [id number] - URICOrder Info: [id number] - CHOLOrder Info: [id number] - MGOrder Info: 2085-05 - HDL Performed By: #### L 501.9910 #### [facility] [address] [place], [address] Chloride [Moles/Vol] 109 mmol/L High 98-107 [facility] Comment on above: Order Comment: Order Date: 11/12/24Order Info: 86-1 - CMPOrder Date: 05/14/24Order Info: 3083-1 - URICOrder Info: 3 - CHOLOrder Info: [id number] - MGOrder Info: 2085-05 - HDL Performed By: #### L 501.9910 #### [facility] [address] [place], [place], [address] CO2 [Moles/Vol] 27.0 mmol/L Normal 21.0-32.0 [facility] Comment on above: Order Comment: Order Date: 11/12/24Order Info: 785-1 - CMPOrder Date: 05/14/24Order Info: 3083-1 - URICOrder Info: 2092-11 - CHOLOrder Info: [id number] - MGOrder Info: 2085-05 - HDL Performed By: #### L 501.9910 #### [facility] [address] [place], [place], [address] Creatinine [Mass/Vol] 1.16 mg/dL Normal 0.70-1.30 [facility] Comment on above: Order Comment: Order Date: 11/12/24Order Info: 785- - CMPOrder Date: 05/14/24Order Info: 1 - URICOrder Info: 2092-11 - CHOLOrder Info: [id number] - MGOrder Info: 2085-05 - HDL Result Comment: The validity of the calculated GFR GFRAA in patients over 70 years has not been determined. Clinical correlation is essential. Performed By: #### L 501.9910 #### [facility] [address] [place], [address] EST GFR - AA 82 mL/min Normal >60 [facility] Comment on above: Order Comment: Order Date: 11/12/24Order Info: 86-1 - CMPOrder Date: 05/14/24Order Info: 3083-1 - URICOrder Info: 3 - CHOLOrder Info: [id number] - MGOrder Info: 2085-05 - HDL Result Comment: Afri can [place] GFR Calc Performed By: #### L 501.9910 #### [facility] [address] [place], [address] GAP 5 Normal 5-15 [facility] Comment on above: Order Comment: Order Date: 11/12/24Order Info: 0786-1 - CMPOrder Date: 05/14/24Order Info: 3083-1 - URICOrder Info: 2092-11 - CHOLOrder Info: [id number] - MGOrder Info: 2085-05 - HDL Performed By: #### L 501.9910 #### [facility] [address] [place], [place], [address] GFR/1.73 sq M.predicted among non-blacks MDRD (S/P/Bld) [Vol rate/Area] 68 mL/min/{1.73_m2} Normal >60 [facility] Comment on above: Order Comment: Order Date: 11/12/24Order Info: 785-1 - CMPOrder Date: 05/14/24Order Info: 3083-09 - URICOrder Info: 2092-11 - CHOLOrder Info: [id number] - MGOrder Info: 2085-05 - HDL Result Comment: Non- GFR Calc Performed By: #### L 501.9910 #### [facility] [address] [place], [address] Globulin (S) [Mass/Vol] 3.4 g/dL Normal 2.2-4.2 [facility] Comment on above: Order Comment: Order Date: 11/12/24Order Info: 785-1 - CMPOrder Date: 05/14/24Order Info: 3083-09 - URICOrder Info: 2092-11 - CHOLOrder Info: [id number] - MGOrder Info: 2085-05 - HDL Performed By: #### L 501.9910 #### [facility] [address] [place], [address] Glucose [Mass/Vol] 89 mg/dL Normal 74-106 [facility] Comment on above: Order Comment: Order Date: 11/12/24Order Info: 785-1 - CMPOrder Date: 05/14/24Order Info: 3083-1 - URICOrder Info: 3 - CHOLOrder Info: [id number] - MGOrder Info: 2085-05 - HDL Performed By: #### L 501.9910 #### [facility] [address] [place], [address] Potassium [Moles/Vol] 4.1 mmol/L Normal 3.5-5.1 [facility] Comment on above: Order Comment: Order Date: 11/12/24Order Info: 785- - CMPOrder Date: 05/14/24Order Info: 3083-09 - URICOrder Info: 3 - CHOLOrder Info: [id number] - MGOrder Info: 2085-05 - HDL Performed By: #### L 501.9910 #### [facility] [address] [place], [address] Sodium [Moles/Vol] 142 mmol/L Normal 136-145 [facility] Comment on above: Order Comment: Order Date: 11/12/24Order Info: 785- - CMPOrder Date: 05/14/24Order Info: 3083-09 - URICOrder Info: 3 - CHOLOrder Info: [id number] - MGOrder Info: 2085-05 - HDL Performed By: #### L 501.9910 #### [facility] [address] [place], [address] T PROT 7.5 g/dL Normal 6.4-8.2 [facility] Comment on above: Order Comment: Order Date: 11/12/24Order Info: 785- - CMPOrder Date: 05/14/24Order Info: 3083- - URICOrder Info: 3 - CHOLOrder Info: [id number] - MGOrder Info: 2085-05 - HDL Performed By: #### L 501.9910 #### [facility] [address] [place], [address] Urea nitrogen [Mass/Vol] 19 mg/dL High 7-18 [facility] Comment on above: Order Comment: Order Date: 11/12/24Order Info: 0786-1 - CMPOrder Date: 05/14/24Order Info: 3084-1 - URICOrder Info: 2092-11 - CHOLOrder Info: [id number] - MGOrder Info: 2085-05 - HDL Performed By: #### L 501.9910 #### [facility] [address] [place], [address] Eosinophil percentageOrdered By: Deondre Rico on 11-12-2024 Eosinophils/100 WBC (Bld) 6.0 % High 0-5 [facility] Erythrocyte distribution wid th ratioOrdered By: Deondre Rico on 11-12-2024 Erythrocyte distribution width (RBC) [Ratio] 12.9 % 11.6-14.6 [facility] Erythrocyte distribution wid th standard deviationOrdered By: Deondre Rico on 11-12-2024 Erythrocyte distribution width (RBC) [Ratio] 42.6 fl 35.1-43.9 [facility] Glomerular filtration rate ( GFR) estimationOrdered By: Deondre Rico on 11-12-2024 GFR/1.73 sq M.predicted among non-blacks MDRD (S/P/Bld) [Vol rate/Area] 68 mL/min/{1.73_m2} >60 [facility] Comment on above: Non- GFR Calc Glucose measurementOrdered B y: Deondre Rico on 11-12-2024 Glucose [Mass/Vol] 89 mg/dL 74-106 [facility] Hematocrit Auto (Bld) [Volum e fraction]Ordered By: Deondre Rico on 11-12-2024 Hematocrit (Bld) [Volume fraction] 43.4 % 40-54 [facility] Hemoglobin measurementOrdere d By: Deondre Rico on 11-12-2024 Hemoglobin (Bld) [Mass/Vol] 14.9 g/dL 13.0-16.5 [facility] High Density Lipoproteinon 0 11-12-2024 Cholesterol in HDL [Mass/Vol] 36 mg/dL Low [facility] Comment on above: Order Comment: Order Date: 11/12/24 Order Info: 0786-1 - CMP Order Date: 05/14/24 Order Info: 3084-1 - URIC Order Info: 2092-3 - CHOL Order Info: [id number] - MG Order Info: 2085-05 - HDL Result Comment: The drugs N-Acetylcysteine and Metamizole may falsely depress this assay. Reference Range HDL <40 mg/dL Low HDL Cholesterol HDL >or= 60 mg/dL High HDL Cholesterol Performed By: #### L 501.5200, L501.6400, L501.4900, L506.1000 #### [facility] [address] [facility] [place], [place], [id number] High density lipoprotein (HD L) measurementOrdered By: Deondre Rico on 11-12-2024 Cholesterol in HDL [Mass/Vol] 36 mg/dL Low >40 [facility] Comment on above: The drugs N-Acetylcy steine and Metamizole may falsely depress this assay. Reference Range HDL <40 mg/dL Low HDL Cholesterol HDL >or= 60 mg/dL High HDL Cholesterol Immature granulocytes/100 WB C Auto (Bld)Ordered By: Deondre Rico on 11-12-2024 Immature granulocytes/100 WBC (Bld) 0.400 % 0.0-0.9 [facility] Comment on above: IG% - Immature Granu locytes (promyelocytes, myelocytes and metamyelocytes) > 1% indicates that a LEFT SHIFT is Present. Knee 3 Viewson 11-12-2024 Knee 3 Views [facility] Imaging Services [address] [place], [place] [id number] Knee 3 Views MR#: [id number] Acct: [id number] Name: BOBBYMICHAELMINERVAFRANCISCO GUCCI Rep #: [id number] : 1960 [place] 64 From: Mann Marquez MD PCP: Dr. Deondre Rico MD Status: REG CLI Study: Knee 3 Views Date of Exam: 11/12/24 Exam# [id number] Ordering Dr: Deondre Rico MD EXAM: XR Left Knee, 3 Views CLINICAL INDICATION: TECHNIQUE: Three views of the left knee. COMPARISON: No relevant prior studies available. FINDINGS: BONES/JOINTS: Mild degenerative changes of the medial compartment of the knee joint. No acute fracture. No dislocation. SOFT TISSUES: Unremarkable. RAD/Knee 3 Views IMPRESSION: Mild degenerative changes of the medial compartment of the knee joint. Reading Location: [facility] CC: Dr. Deondre Rico MD Principal Technical Writer: Signed Normal [facility] - Chemistry and C hemistry - challengeOrdered By: Deondre Rico on 11-12-2024 AST [Catalytic activity/Vol] 30 U/L 15-37 [facility] MCV (mean corpuscular volume ) determinationOrdered By: Deondre Rico on 11-12-2024 MCV (RBC) [Entitic vol] 91.2 fL 80-94 [facility] Magnesiumon 11-12-2024 Magnesium [Mass/Vol] 1.9 mg/dL Normal 1.6-2.6 [facility] Comment on above: Order Comment: Order Date: 11/12/24 Order Info: 0786-1 - CMP Order Date: 05/14/24 Order Info: 3084-1 - URIC Order Info: 2093-3 - CHOL Order Info: 73234-0 - MG Order Info: 2085-9 - HDL Performed By: #### L 501.5200, L501.6400, L501.4900, L506.1000 #### [facility] [address] [place] [address], [address] Magnesium measurementOrdered By: Deondre Rico on 11-12-2024 Magnesium [Mass/Vol] 1.9 mg/dL 1.6-2.6 [facility] Mean corpuscular hemoglobin (MCH) determinationOrdered By: Deondre Rico on 11-12-2024 MCH (RBC) [Entitic mass] 31.3 pg 27.0-32.0 [facility] Mean corpuscular hemoglobin concentration (MCHC) determinationOrdered By: Deondre Rico on 11-12-2024 MCHC (RBC) [Mass/Vol] 34.3 g/dL 32-36 [facility] Mean platelet volume determi nationOrdered By: Deondre Rico on 11-12-2024 Platelet mean volume (Bld) [Entitic vol] 10.6 fL 6.2-12.0 [facility] Microalb:Creat Ratio,Random URon 11-12-2024 Creatinine [Mass/Vol] 145.00 mg/dL Normal NO RANGE EST . [facility] Comment on above: Order Comment: Order Date: 11/12/24 Order Info: 0779-1 - MIACRE Order Info: 56307-1 - MIALB Performed By: #### L 501.1400, L502.0250, L100.0100 #### [facility] [address] [place], [place], [address] MALB:CRE 43.7 mg/g CRE High <30 mg/g CRE [facility] Comment on above: Order Comment: Order Date: 11/12/24 Order Info: 0779-1 - MIACRE Order Info: [id number] - MIALB Performed By: #### L 501.1400, L502.0250, L100.0100 #### [facility] [address] [place], [address] MICROALBUMIN,UR 63.4 mg/L Normal NO RANGE EST. [facility] Comment on above: Order Comment: Order Date: 11/12/24 Order Info: 0779-1 - MIACRE Order Info: [id number] - MIALB Performed By: #### L 501.1400, L502.0250, L100.0100 #### [facility] [address] [place], [address] Monocyte percentageOrdered B y: Deondre Rico on 11-12-2024 Monocytes/100 WBC (Bld) 7.3 % 0-10 [facility] Neutrophil percentageOrdered By: Deondre Rico on 11-12-2024 Neutrophils/100 WBC (Bld) 67.2 % 47-70 [facility] Nucleated red blood cell per centageOrdered By: Deondre Rico on 11-12-2024 Nucleated RBC/100 WBC (Bld) [Ratio] 0 % 0-5 [facility] Platelet countOrdered By: Phyllis Rico on 11-12-2024 Platelets (Bld) [#/Vol] 134 10*3/uL Low 150-450 [facility] Potassium measurementOrdered By: Deondre Rico on 11-12-2024 Potassium [Moles/Vol] 4.1 mmol/L 3.5-5.1 [facility] RBC Auto (Bld) [#/Vol]Ordere d By: Deondre Rico on 11-12-2024 RBC (Bld) [#/Vol] 4.76 10*6/uL 4.6-6.2 [facility] Serum anion gap measurementO rdered By: Deondre Rico on 11-12-2024 Anion gap [Moles/Vol] 5 mmol/L 5-15 [facility] Serum globulin measurementOr dered By: Deondre Rico on 11-12-2024 Globulin (S) [Mass/Vol] 3.4 g/dL 2.2-4.2 [facility] Serum or plasma alanine mayorga otransferase (ALT) measurementOrdered By: Deondre Rico on 11-12-2024 ALT [Catalytic activity/Vol] 30 U/L 16-61 [facility] Serum or plasma albumin irma urement (mass/volume)Ordered By: Deondre Rico on 11-12-2024 Albumin [Mass/Vol] 4.1 g/dL 3.2-5.0 [facility] Serum or plasma alkaline lili sphatase measurementOrdered By: Deondre Rico on 11-12-2024 ALP [Catalytic activity/Vol] 82 U/L 45-117 [facility] Serum or plasma calcium irma urement (mass/volume)Ordered By: Deondre Rico on 11-12-2024 Calcium [Mass/Vol] 9.4 mg/dL 8.5-10.1 [facility] Serum or plasma cholesterol measurement (mass/volume)Ordered By: Deondre Rico on 11-12-2024 Cholesterol [Mass/Vol] 105 mg/dL <200 [facility] Comment on above: <200 mg/dL Desirable 200-240 mg/dL Borderline >240 mg/dL High Risk Serum or plasma creatinine m easurement (mass/volume)Ordered By: Deondre Rico on 11-12-2024 Creatinine [Mass/Vol] 1.16 mg/dL 0.70-1.30 [facility] Comment on above: The validity of the calculated GFR & GFRAA in patients over 70 years has not been determined. Clinical correlation is essential. Serum or plasma urea nitroge n measurement (mass/volume)Ordered By: Deondre Rico on 11-12-2024 Urea nitrogen [Mass/Vol] 19 mg/dL High 7-18 [facility] Serum or plasma uric acid me asurement (mass/volume)Ordered By: Deondre Rico on 11-12-2024 Urate [Mass/Vol] 5.7 mg/dL 3.5-7.2 [facility] Comment on above: The drugs N-Acetylcy steine and Metamizole may falsely depress this assay. Sodium levelOrdered By: Deondre Rico on 11-12-2024 Sodium [Moles/Vol] 142 mmol/L 136-145 [facility] Total proteinOrdered By: Bobbi Rico on 11-12-2024 Protein [Mass/Vol] 7.5 g/dL 6.4-8.2 [facility] Uric Acidon 11-12-2024 URIC 5.7 mg/dL Normal 3.5-7.2 [facility] Comment on above: Order Comment: Order Date: 11/12/24 Order Info: 0786-1 - CMP Order Date: 05/14/24 Order Info: 3084-1 - URIC Order Info: 2093-3 - CHOL Order Info: [id number] - MG Order Info: 2085-9 - HDL Result Comment: The drugs N-Acetylcysteine and Metamizole may falsely depress this assay. Performed By: #### L 501.1400, L502.0250, L100.0100 #### [facility] [address] [place] [address]. [place], [address] Urine creatinine measurement (mass/volume)Ordered By: Deondre Rico on 11-12-2024 Creatinine (U) [Mass/Vol] 145.00 mg/dL NO RANGE EST. [facility] Vitamin D,25 Hydroxyon 11-12 Vitamin D 25-OH 12.9 ng/mL Normal [facility] Comment on above: Order Comment: Order Date: 11/12/24 Order Info: [id number] - VITD25 Result Comment: Halina min D 25(OH) Status Range Deficiency <20 ng/mL (50nmol/L) Insufficiency 20 - 30 ng/mL (50 - 75 nmol/L) Sufficiency 30 - 100 ng/mL (75 - 250 nmol/L) Toxicity >100 ng/mL (>250 nmol/L) Performed By: #### L 501.5200, L501.6400, L501.4900, L506.1000 #### [facility] [address] [place], [address] White blood cell (WBC) count Ordered By: Deondre Rico on 11-12-2024 WBC (Bld) [#/Vol] 5.5 10*3/uL 4.4-11.0 [facility] CREATININE FINGERSTICKon Creatinine [Mass/Vol] 1.4 mg/dL High 0.70-1.30 [facility] Comment on above: Performed By: #### L 9100.0200 #### [facility] [address] [place], [address] GFR/1.73 sq M.predicted among non-blacks MDRD (S/P/Bld) [Vol rate/Area] 55.0000 mL/min/{1.73_m2} Low >60 [facility] Comment on above: Performed By: #### L 9100.0200 #### [facility] [address] [place], [address] CTA Chest W/WO Contraston CTA Chest W/WO Contrast [facility] Imaging Services [address] [place], [place] [address] CTA Chest W/WO Contrast MR#: [id number] Acct: [id number] Name: FRANCISCO AMATO Rep #: [id number] : 1960 M 64 From: Delfino coronado MD PCP: Dr. Deondre Rico MD Status: REG CLI Study: CTA Chest W/WO Contrast Date of Exam: 10/13/24 Exam# [id number] Ordering Dr: Negin Anguiano -[id number] STUDY: CTA CHEST REASON FOR EXAM: Male, 64 years old. Dilated aorta. Hypertension. RADIATION DOSAGE (If Supplied By Facility): CTDIvol = ( 14.98 ) mGy, DLP = ( 719.81 ) mGycm TECHNIQUE: The examination was performed with the intravenous administration of IV 100mL Isovue-370. Post-processing of the angiographic images was performed, with multiplanar reformation and 3D reconstruction. Individualized dose optimization techniques were used for this CT. COMPARISON: None. FINDINGS: Normal enhancement of the main pulmonary artery and right and left pulmonary arteries. Normal enhancement of the bilateral peripheral pulmonary arteries. There is no demonstrated pulmonary embolism. There is aneurysmal dilatation of the ascending aorta. The transverse diameter of the ascending aorta measures 46.4 mm''s. There is no demonstrated aortic dissection. There are calcifications of the coronary arteries. Normal mediastinum. Normal hilar regions. Normal visualized trachea and bronchi. The lungs are well expanded. Normal pulmonary parenchyma. Normal pleura. Normal chest wall structures. There are degenerative changes of thoracic spine. Normal visualized upper abdomen. CT/CTA Chest W/WO Contrast IMPRESSION: Dilatation of the root of the ascending thoracic aorta measuring 46.4 mm. Electronically Signed: Delfino Meade MD at 9:48 EST , CC: Dr. Deondre Rico MD; TEGAN Anton Principal Technical Writer: Signed Normal [facility] Echo Completeon 09-07-2024 Echo Complete [facility] Services [address] [place] [address] Echo Complete 09/07/24 1523 MR#: [id number] Acct: [id number] Name: FRANCISCO AMATO Rep #: [id number] : 1960 64 From: Mary Mcghee MD Attending Dr: Dr. Mary Mcghee MD Status: REG CLI Ordering Dr: Mary Mcghee MD Date: 09/07/24 Location: [facility] Sex: M C Admitted: Reason For Study: CHF Procedure This was a 2D Doppler, Color Flow transthoracic echocardiogram. Exam performed in department. Left Ventricle Normal LV size. Moderate LV concentric hypertrophy. LVEF 65%. Stage I diastolic dysfunction. Right Ventricle Normal right ventricle. Atria The left and right atria are normal. Mitral Valve Mild (1+) mitral valve insufficiency. Tricuspid Valve Mild tricuspid valve insufficiency. Normal pulmonary artery pressure. Aortic Valve Trisinus/trileaflet aortic valve. Pulmonic Valve The pulmonic valve is not well visualized. Trivial pulmonic valve insufficiency. Great Vessels Mildly dilated aortic root. Pericardium/Pleural No pericardial effusion. MMode/2D Measurements Calculations LVIDd: 4.7 cm IVSd: 1.6 cm Ao root diam: 3.9 cm LVIDs: 3.1 cm LVPWd: 1.3 cm RVDd: 3.9 cm FS: 33.2 % LAV(MOD-bp): 43.9 ml LVAd ap4: 27.7 cm2 SV(MOD-sp4): 45.8 ml LAV(MOD-bp) Indexed: 19.6 ml/m2 LVLd ap4: 7.5 cm SI(MOD-sp4): 20.5 ml/m2 LAV(MOD-sp2): 48.7 ml EDV(MOD-sp4): 84.3 ml LAV(MOD-sp4): 35.3 ml EDV(sp4-el): 87.7 ml LVAs ap4: 17.6 cm2 LVLs ap4: 6.8 cm ESV(MOD-sp4): 38.5 ml ESV(sp4-el): 38.6 ml EF(MOD-sp4): 54.4 % EF(sp4-el): 56.0 % SV(sp4-el): 49.1 ml LA A4 area: 14.6 cm2 LA dimension(2D): 4.2 cm RA A4 area: 15.3 cm2 TAPSE: 2.0 cm Time Measurements MV dec time: 0.26 sec Doppler Measurements Calculations MV E max kevin: 50.6 cm/sec Lat Peak E' Kevin: 7.8 cm/sec Med Peak E' Kevin: 5.0 cm/sec MV A max kevin: 82.3 cm/sec E/E' lat: 6.5 E/E' med: 10.0 MV E/A: 0.61 MV V2 max: 104.1 cm/sec MV P1/2t max kevin: 68.1 cm/sec Ao V2 max: 118.3 cm/sec MV max P.3 mmHg MV P1/2t: 105.9 msec Ao max P.6 mmHg MV V2 mean: 51.3 cm/sec Ao V2 mean: 80.4 cm/sec MV mean P.3 mmHg MV dec slope: 188.4 cm/sec2 Ao mean P.9 mmHg MV V2 VTI: 25.9 cm MVA(P1/2t): 2.1 cm2 Ao V2 VTI: 20.4 cm AV (velocity ratio): 1.1 LV V1 max: 107.2 cm/sec PA V2 max: 88.2 cm/sec TR max kevin: 236.0 cm/sec LV V1 max P.6 mmHg PA V2 mean: 53.2 cm/sec TR max P.3 mmHg LV V1 mean P.6 mmHg LV V1 mean: 77.6 cm/sec LV V1 VTI: 22.1 cm ECHO/Echo Complete Interpretation Summary Moderate LV concentric hypertrophy. LVEF 65%. Stage I diastolic dysfunction. Mild (1+) mitral valve insufficiency. Mild tricuspid valve insufficiency. Mildly dilated aortic root. __ Ordering Physician: Mary Mcghee Referring Physician: Mary Mcghee Performed By: Lucius Suarez, HALLEY 09/08/24 1012 Date Mary Mcghee MD CC: Dr. Mary Mcghee MD; Dr. Deondre Rico MD Date Dictated: 09/07/24 1523 Date Transcribed: 09/08/24 1012 Principal Technical Writer: Signed Normal [facility] Stress Reporton 09-02-2024 Stress Report [facility] Cardiovascular Services [address] [place] [address] MR#: [id number] Acct: [id number] Name: FRANCISCO AMATO Rep #: [id number] : 1960 64 From: Mary Mcghee MD Primary Care: Dr. Deondre Rico MD Status: R EG CLI Referring Dr: Mary Mcghee MD Sex: M C Stress Test Report Date: 09/02/2024 Procedure: Exercise tolerance test/imaging study Indications: Coronary artery disease Consent: Per the patient Procedure: The patient exercised on a Sung protocol for 6 minutes and 20 seconds achieving a peak heart rate of 153 bpm (97% predicted maximal heart rate) with a peak blood pressure 226/90 mmHg and a peak MET capacity of 8.0 METs. The baseline ECG demonstrated sinus rhythm with right bundle branch block. The peak exercise ECG demonstrated no ischemic changes. Rare PVC noted. The functional capacity was considered average. There was no complaint of chest discomfort during exercise or recovery. The examination was discontinued secondary to target heart rate being achieved. The patient was injected with 14.7 mCi of technetium 99m Cardiolite and subsequently rest SPECT Cardiolite nuclear imaging was obtained in the horizontal long, vertical long, and short axis views. Post-exercise, the patient was injected with 44.9 mCi of technetium 99m Cardiolite and subsequently stress SPECT Cardiolite nuclear imaging was obtained in the horizontal long, vertical long, and short axis views. A gated Cardiolite study at peak stress was obtained. Rest and stress SPECT Cardiolite nuclear imaging status post realignment, normalization, and attenuation correction, demonstrates the appearance of relative uniform tracer uptake and myocardial perfusion appearing within normal limits. There is end systolic thickening and brightening. The gated Cardiolite study demonstrates myocardial thickening and inward wall motion. The reported LVEF is 57%. Impression: 1. Technically adequate (percent predicted maximal heart rate greater than 85%) exercise tolerance test. Hypertensive blood pressure response to exercise. 2. Peak exercise ECG with no ischemic changes 3. No significant cardiac dysrhythmias noted. Rare PVC. 4. Rest and stress SPECT Cardiolite nuclear imaging demonstrate relative uniform tracer uptake and myocardial perfusion appearing within normal limits. 5. The gated Cardiolite study reports an LVEF of 57%. This note was generated with happin! dictation software. It may contain incorrect words, spelling, and punctuation that were not noted in checking the note before signing. 09/02/24 1257 Date Mary Mcghee MD CC: Dr. Mary Mcghee MD; Dr. Deondre Rico MD Date Dictated: 09/02/24 1255 Date Transcribed: 09/02/241254 Principal Technical Writer: ENOCH Signed Normal [facility] Office Visit Reporton 2023 Office Visit Report [facility] [address] [facility] [place] [address] OFFICE VISIT Date of Service: 08/20/24 MR#: [id number] Acct: [id number] Patient: FRANCISCO AMATO Rep #: [id number] : 1960 Provider: Dr. Mary Mcghee MD Age/Sex: 64/M [place] [facility] [place]: Signed Intake Vital Signs 08/12/24 08:21 08/20/24 14:56 Height 5 ft 11 in BP 179/103 H Blood Pressure Location Lt brachial Position Sitting Respiration 18 Pulse 68 Pulse Source NIBP Intake Visit Reasons: 1 WK BP Check Chief Complaint: Back pain/fatique/SOB Allergies No Known Allergies Allergy (Verified 08/12/24 14:39) Nursing Note Pt in for a 1wk F/U BP. Pt stated that he researched the HCTZ that he was ordered at his last visit and did not take it due to potential gout and kidney side effects. He is not opposed to an alternative. His BPs in office are as follows: 1st: BP: 195/107 HR: 71 (L) 2nd: BP: 179/103 HR: 68 (L) 3rd: BP: 193/104 HR: 72 (R) Assessment and Plan Assessment and Plan Medications: New amlodipine 5 mg PO QDAY 90 tabs 3RF Discontinued hydrochlorothiazide Discontinued Reason: Order Changed 25 mg PO QDAY 90 tabs 3RF 12/27/24 1239 Date Mary Mcghee MD Cosign Signature: Date (if applicable) CC: Normal [facility] Cardiology Visit Reporton Cardiology Visit Report [facility] [address] [place] [address] OFFICE VISIT Date of Service: 08/12/24 MR#: [id number] Acct: [id number] Name: FRANCISCO AMATO Rep #: [id number] 2 : 1960 Provider: Dr. Mary Mcghee MD Age/Sex: 64/M Location: [facility] Status: Signed HPI HPI History of Present Illness Details: This gentleman is here for follow-up visit. He has history of coronary artery disease status post percutaneous intervention to the left circumflex/obtuse marginal system and the RCA. Also history of ischemic cardiomyopathy with recovered LV function on last echocardiogram. Denies any chest pains or shortness of breath. No palpitations. No orthopnea or PND. No ankle edema. Intake Vital Signs 08/01/23 09:04 08/12/24 08:21 Height 5 ft 11 in 5 ft 11 in Weight: 226 lb BMI 31.5 BP 166/92 H Blood Pressure Location Lt brachial Position Sitting Respiration 16 Pulse 69 Pulse Source NIBP Intake Visit Reasons: 1 Y FU Solar Manager Required: No Accompanied by: Self Is patient in pain?: No Allergies No Known Allergies Allergy (Verified 08/12/24 14:39) Medications ???Medication ???Instructions ???Recorded ???Confirmed ???Type aspirin 81 mg tablet,delayed 81 mg PO DAILY@0800 #90 tabs 05/27/22 08/12/24 Rx release pyridoxine (vitamin B6) 50 mg 50 mg PO DAILY 08/01/23 08/12/24 History tablet lisinopril 20 mg tablet 20 mg PO BID #60 tabs 03/08/24 08/12/24 Rx rosuvastatin 5 mg tablet 5 mg PO DAILY #90 tabs 03/08/24 08/12/24 Rx carvedilol 12.5 mg tablet 12.5 mg PO BID #60 tabs 03/15/24 08/12/24 Rx hydralazine 50 mg tablet 50 mg PO BID #180 tabs 07/15/24 08/12/24 Rx nitroglycerin 0.4 mg sublingual 0.4 mg sublingual Q5M PRN 08/12/24 08/12/24 Rx tablet Cardiac/Chest Pain ##25 Ejection fraction %: 65 Have you fallen in the past year?: No PFSH Medical History Acute kidney injury Acute renal insufficiency Atherosclerosis of [place] coronary artery of [place] heart without angina pectoris Benign essential HTN Chronic systolic (congestive) heart failure CKD (chronic kidney disease) History of non-ST elevation myocardial infarction (NSTEMI) (03/2019) HLD (hyperlipidemia) Hypertensive urgency Ischemic cardiomyopathy Presence of stent in coronary artery ( 05/19/19) Surgical History History of left heart catheterization Presence of coronary angioplasty implant and graft ( 05/19/19) Family History Father Heart disease in early 70s Hypertension Mother Heart disease, Onset Age: 65 smoker Brother Heart disease, Onset Age: 60 Social History Smoking Status: Never smoker Smokeless tobacco user: chewing tobacco alcohol intake: never substance use type: does not use caffeine: Yes Type: carbonated beverages Number of servings: 1 ROS Const Const: Negative for fatigue, weakness, headache(s) or weight gain ENT ENT: Negative for headache(s), dizziness, Nosebleed/epistaxis or balance problems Cardio Chest Pain: No Palpitations: No Edema: None Muscle aches with walking: None Resp Respiratory: Negative for SOB with activity, SOB at rest or SOB orthopnea SOB lying down GI GI: Negative nausea, vomiting or heartburn Musc Musc: Negative for muscle aches/ myalgia, muscle weakness, joint pain or balance problems Neuro Neuro: Negative for dizziness, lightheadedness, near syncope, syncope, headache(s) or weakness Endo Endo: Negative for fatigue Cardiology Exam Const Appearance: comfortable and no acute distress Nutritional Appearance: well nourished Neck Neck: no JVD Carotids: Negative bruit Chest Auscultation: Bilateral: Clear to Auscultation Cardio Rate: regular rate Rhythm: regular rhythm Heart sounds: S1 normal and S2 normal Neuro General: patient alert, patient awake and patient oriented x3 Extremities Lower Extremity Edema: None: Bilateral Supplemental Info Supplemental Information Echocardiogram from 12/03/2019: Interpretation Summary Moderate concentric left ventricular hypertrophy. The estimated ejection fraction is 65 %. Stage 1 diastolic dysfunction. Mildly dilated right ventricle. Trivial tricuspid valve insufficiency. Right ventricular systolic pressure estimated to be 31 mmHg. Compared to echo report dated 03/29/2019, no appreciable changes noted. Stress echocardiogram from 04/26/2019: Interpretation Summary The estimated ejection fraction is 35 %. Baseline Mid-Lateral : Severely Hypokinetic. Baseline Infero-Basal: Severely Hypokinetic. Basal inferoseptal: Severely Hypokinetic at peak exercise. Abnormal, adequa (more content not included)... Normal [facility] Basophil percentageOrdered B y: Kirby Rudolph on 08-29-2023 Chloride [Moles/Vol] 107 mmol/L 98-107 [facility] Glucose [Mass/Vol] 186 mg/dL 74-106 [facility] Comment on above: Fasting Glucose resu lt greater than or equal to 126 mg/dL suggests DIABETES MELLITUS per A.D.A. criteria. Potassium [Moles/Vol] 4.0 mmol/L 3.5-5.1 [facility] Sodium [Moles/Vol] 138 mmol/L 136-145 [facility] Laboratory - Chemistry and C hemistry - challengeOrdered By: Kirby Rudolph on 08-29-2023 CO2 [Moles/Vol] 31.0 mmol/L 21.0-32.0 [facility] Magnesium [Mass/Vol] 2.0 mg/dL 1.6-2.6 [facility] Urea nitrogen/Creatinine [Mass ratio] 15.6 mg/mg 10-20 [facility] No Panel InformationOrdered By: Kirby Rudolph on 08-29-2023 Estimated GFR (MDRD) Amer 65 mL/min >60 [facility] Comment on above: GFR Calc Estimated GFR (MDRD) Non-Af Amer 54 mL/min >60 [facility] Comment on above: Non- GFR Calc Serum or plasma calcium irma urement (mass/volume)Ordered By: Kirby Rudolph on 08-29-2023 Calcium [Mass/Vol] 8.7 mg/dL 8.5-10.1 [facility] Serum or plasma creatinine m easurement (mass/volume)Ordered By: Kirby Rudolph on 08-29-2023 Creatinine [Mass/Vol] 1.41 mg/dL 0.70-1.30 [facility] Comment on above: The validity of the calculated GFR & GFRAA in patients over 70 years has not been determined. Clinical correlation is essential. Serum or plasma urea nitroge n measurement (mass/volume)Ordered By: Kirby Rudolph on 08-29-2023 Urea nitrogen [Mass/Vol] 22 mg/dL 7-18 [facility] Thin prep Papanicolaou smear with manual screeningOrdered By: Kirby Rudolph on 08-29-2023 Thin prep Papanicolaou smear with manual screening 0 5-15 [facility] Absolute lymphocyte countOrd ered By: Leno Valdez on 05-15-2023 Lymphocytes Auto (Unsp spec) [#/Vol] 1.27 10*3/uL 0.83-4.51 [facility] Basophil percentageOrdered B y: Leno Valdez on 05-15-2023 Basophils/100 WBC (Bld) 0.5 % 0-1 [facility] Bilirubin [Mass/Vol] 0.50 mg/dL 0.20-1.00 [facility] Comment on above: For patients on eltr ombopag therapy, use of Dimension [place] TBIL is not recommended. Chloride [Moles/Vol] 110 mmol/L 98-107 [facility] Cholesterol [Mass/Vol] 108 mg/dL <200 [facility] Comment on above: <200 mg/dL Desirable 200-240 mg/dL Borderline >240 mg/dL High Risk Eosinophils/100 WBC (Bld) 4.2 % 0-5 [facility] Glucose [Mass/Vol] 94 mg/dL 74-106 [facility] Neutrophils (Bld) [#/Vol] 4.1 10*3/uL 2.0-7.7 [facility] Neutrophils/100 WBC (Bld) 66.1 % 47-70 [facility] Potassium [Moles/Vol] 4.4 mmol/L 3.5-5.1 [facility] Protein [Mass/Vol] 7.3 g/dL 6.4-8.2 [facility] Sodium [Moles/Vol] 141 mmol/L 136-145 [facility] Triglyceride [Mass/Vol] 198 mg/dL <199 [facility] Comment on above: The drugs N-Acetylcy steine and Metamizole may falsely depress this assay.Serum Triglycerides Reference Interval Normal <150 mg/dL Borderline high 150 - 199 mg/dL High 200 - 499 mg/dL Very High > or = 500 mg/dL WBC (Bld) [#/Vol] 6.2 10*3/uL 4.4-11.0 [facility] Blood erythrocytes count (nu mber/volume)Ordered By: Leno Valdez on 05-15-2023 RBC (Bld) [#/Vol] 4.46 10*6/uL 4.6-6.2 [facility] Blood hemoglobin measurement (mass/volume)Ordered By: Leno Valdez on 05-15-2023 Hemoglobin (Bld) [Mass/Vol] 13.9 g/dL 13.0-16.5 [facility] Blood lymphocytes/100 leukoc ytesOrdered By: Leno Valdez on 05-15-2023 Lymphocytes/100 WBC (Bld) 20.5 % 19-41 [facility] Blood monocytes/100 leukocyt esOrdered By: Leno Valdez on 05-15-2023 Monocytes/100 WBC (Bld) 8.4 % 0-10 [facility] Blood platelet mean volumeOr dered By: Leno Valdez on 05-15-2023 Platelet mean volume (Bld) [Entitic vol] 10.6 fL 6.2-12.0 [facility] Determination of erythrocyte mean corpuscular volume (MCV)Ordered By: Leno Valdez on 05-15-2023 MCV (RBC) [Entitic vol] 95.7 fL 80-94 [facility] Hematocrit Auto (Bld) [Volum e fraction]Ordered By: Leno Valdez on 05-15-2023 Hematocrit (Bld) [Volume fraction] 42.7 % 40-54 [facility] Laboratory - Chemistry and C hemistry - challengeOrdered By: Leno Valdez on 05-15-2023 ALP [Catalytic activity/Vol] 67 U/L 45-117 [facility] ALT [Catalytic activity/Vol] 31 U/L 16-61 [facility] CO2 [Moles/Vol] 24.0 mmol/L 21.0-32.0 [facility] Globulin (S) [Mass/Vol] 3.3 g/dL 2.2-4.2 [facility] Urea nitrogen/Creatinine [Mass ratio] 18.8 mg/mg 10-20 [facility] Laboratory - Hematology and Cell countsOrdered By: Leno Valdez on 05-15-2023 Erythrocyte distribution width (RBC) [Entitic vol] 43.7 fL 35.1-43.9 [facility] Erythrocyte distribution width (RBC) [Ratio] 12.3 % 11.6-14.6 [facility] Immature granulocytes/100 WBC (Bld) 0.300 % 0.0-0.9 [facility] Comment on above: IG% - Immature Granu locytes (promyelocytes, myelocytes and metamyelocytes) > 1% indicates that a LEFT SHIFT is Present. MCH (RBC) [Entitic mass] 31.2 pg 27.0-32.0 [facility] Nucleated RBC/100 WBC (Bld) [Ratio] 0 % 0-5 [facility] MCHC Auto (RBC) [Mass/Vol]Or dered By: Leno Valdez on 05-15-2023 MCHC (RBC) [Mass/Vol] 32.6 g/dL 32-36 [facility] No Panel InformationOrdered By: Leno Valdez on 05-15-2023 Estimated GFR (MDRD) Amer 81 mL/min >60 [facility] Comment on above: GFR Calc Estimated GFR (MDRD) Non-Af Amer 67 mL/min >60 [facility] Comment on above: Non- GFR Calc Thyroid Stimulating Hormone (TSH) 1.02 uIU/mL 0.358-3.74 [facility] Platelets bldOrdered By: Maribell loyda Courtney on 05-15-2023 Platelets (Bld) [#/Vol] 135 10*3/uL 150-450 [facility] Serum or plasma albumin irma urement (mass/volume)Ordered By: Leno Valdez on 05-15-2023 Albumin [Mass/Vol] 4.0 g/dL 3.2-5.0 [facility] Serum or plasma albumin/glob ulin mass ratioOrdered By: Leno Valdez on 05-15-2023 Albumin/Globulin [Mass ratio] 1.2 {ratio} 0.9-2.4 [facility] Serum or plasma calcium irma urement (mass/volume)Ordered By: Leno Valdez on 05-15-2023 Calcium [Mass/Vol] 8.9 mg/dL 8.5-10.1 [facility] Serum or plasma cholesterol in HDL measurement (mass/volume)Ordered By: Leno Valedz on 05-15-2023 Cholesterol in HDL [Mass/Vol] 31 mg/dL >40 [facility] Comment on above: The drugs N-Acetylcy steine and Metamizole may falsely depress this assay. Reference Range HDL <40 mg/dL Low HDL Cholesterol HDL >or= 60 mg/dL High HDL Cholesterol Serum or plasma cholesterol in VLDL measurement (mass/volume)Ordered By: Leno Valdez on 05-15-2023 Cholesterol in VLDL [Mass/Vol] 40 mg/dL 5-40 [facility] Serum or plasma creatinine m easurement (mass/volume)Ordered By: Leno Valdez on 05-15-2023 Creatinine [Mass/Vol] 1.17 mg/dL 0.70-1.30 [facility] Comment on above: The validity of the calculated GFR & GFRAA in patients over 70 years has not been determined. Clinical correlation is essential. Serum or plasma low density lipoprotein (LDL) cholesterol measurement (mass/volume)Ordered By: Leno Valdez on 05-15-2023 Cholesterol in LDL [Mass/Vol] 37 mg/dL 0-130 [facility] Serum or plasma urea nitroge n measurement (mass/volume)Ordered By: Leno Valdez on 05-15-2023 Urea nitrogen [Mass/Vol] 22 mg/dL 7-18 [facility] Thin prep Papanicolaou smear with manual screeningOrdered By: Leno Valdez on 05-15-2023 Thin prep Papanicolaou smear with manual screening 30 U/L 15-37 [facility] Thin prep Papanicolaou smear with manual screening 7 5-15 [facility] Basophil percentageon 2021 Bilirubin [Mass/Vol] 0.50 mg/dL 0.20-1.00 [facility] Work Phone: Comment on above: For patients on eltr ombopag therapy, use of Dimension [place] TBIL is not recommended. Chloride [Moles/Vol] 109 mmol/L 98-107 [facility] Work Phone: Glucose [Mass/Vol] 112 mg/dL 74-106 [facility] Work Phone: Comment on above: Fasting Glucose resu lt from 100 to 125 mg/dL suggests IMPAIRED HOMEOSTASIS per A.D.A. criteria. Potassium [Moles/Vol] 4.1 mmol/L 3.5-5.1 [facility] Work Phone: Protein [Mass/Vol] 7.2 g/dL 6.4-8.2 [facility] Work Phone: Sodium [Moles/Vol] 139 mmol/L 136-145 [facility] Work Phone: Laboratory - Chemistry and C hemistry - challengeon 05-03-2022 ALP [Catalytic activity/Vol] 64 U/L 45-117 [facility] Work Phone: ALT [Catalytic activity/Vol] 26 U/L 16-61 [facility] Work Phone: CO2 [Moles/Vol] 27.0 mmol/L 21.0-32.0 [facility] Work Phone: [phone] Globulin (S) [Mass/Vol] 3.4 g/dL 2.2-4.2 [facility] Work Phone: Urea nitrogen/Creatinine [Mass ratio] 17.2 mg/mg 10-20 [facility] Work Phone: No Panel Informationon 05-03 Estimated GFR (MDRD) Amer 78 mL/min >60 [facility] Work Phone: Comment on above: GFR Calc Estimated GFR (MDRD) Non-Af Amer 64 mL/min >60 [facility] Work Phone: Comment on above: Non- GFR Calc Parathyroid Hormone (Intact) 54.7 pg/mL 18.4-80.1 [facility] Work Phone: Thyroid Stimulating Hormone (TSH) 0.71 uIU/mL 0.358-3.74 [facility] Work Phone: Vitamin D 25-Hydroxy 34.2 ng/mL [facility] Work Phone: Comment on above: Vitamin D 25(OH) Sta tus Range Deficiency <20 ng/mL (50nmol/L) Insufficiency 20 - 30 ng/mL (50 - 75 nmol/L) Sufficiency 30 - 100 ng/mL (75 - 250 nmol/L) Toxicity >100 ng/mL (>250 nmol/L) Serum or plasma albumin irma urement (mass/volume)on 05-03-2022 Albumin [Mass/Vol] 3.8 g/dL 3.2-5.0 [facility] Work Phone: Serum or plasma albumin/glob ulin mass ratioon 05-03-2022 Albumin/Globulin [Mass ratio] 1.1 {ratio} 0.9-2.4 [facility] Work Phone: Serum or plasma calcium irma urement (mass/volume)on 05-03-2022 Calcium [Mass/Vol] 8.6 mg/dL 8.5-10.1 [facility] Work Phone: Serum or plasma creatinine m easurement (mass/volume)on 05-03-2022 Creatinine [Mass/Vol] 1.22 mg/dL 0.70-1.30 [facility] Work Phone: Comment on above: The validity of the calculated GFR & GFRAA in patients over 70 years has not been determined. Clinical correlation is essential. Serum or plasma urea nitroge n measurement (mass/volume)on 05-03-2022 Urea nitrogen [Mass/Vol] 21 mg/dL 7-18 [facility] Work Phone: Serum or plasma uric acid me asurement (mass/volume)on 05-03-2022 Urate [Mass/Vol] 5.9 mg/dL 3.5-7.2 [facility] Work Phone: Comment on above: The drugs N-Acetylcy steine and Metamizole may falsely depress this assay. Thin prep Papanicolaou smear with manual screeningon 05-03-2022 Thin prep Papanicolaou smear with manual screening 24 U/L 15-37 [facility] Work Phone: Thin prep Papanicolaou smear with manual screening 3 5-15 [facility] Work Phone: Thin prep Papanicolaou smear with manual screening 32.8 mg/L NO RANGE EST. [facility] Work Phone: Urine Cultureon 2019 Bacteria identified Cx Nom (U) Sp. Request/Comment: - Specimen received in preservative Culture Result - No growth (<1,000 CFU/ml) Normal [facility] Comment on above: Performed By: #### U RCUL #### [facility] [address] [place], [place] [address] CNOVon 03-26-2019 CNOV Office Visit ([facility]) ---- FRANCISCO AMATO ([id number]) 1960 Date Time Provider Department 03/26/19 6:00 PM ADELIA MARSH [facility] During your visit today, we recorded the following information about you: Temperature Pulse Blood pressure Weight 98 degrees 111/minute 122/78 111.1 kg Adelia Marsh APRN.CNP 03/26/2019 7:02 PM Signed Subjective HPI Francisco Amato is a 58 year old male who presents with low back discomfort, lethargy, and sweating. He is requesting lab work. Denies chest pain or shortness of breath. Says he does not feel right. Review of Systems Constitutional: Positive for chills, diaphoresis and malaise/fatigue. Negative for fever. HENT: Negative for congestion. Eyes: Negative for blurred vision. Respiratory: Negative for cough, sputum production, shortness of breath and wheezing. Cardiovascular: Negative for chest pain and palpitations. Genitourinary: Positive for dysuria, flank pain and frequency. Musculoskeletal: Positive for back pain. Negative for myalgias. Skin: Negative for itching and rash. Neurological: Positive for dizziness and weakness. BP 122/78 Pulse 111 Temp 36.7 ?C (98 ?F) (Tympanic) Wt 111.1 kg (245 lb) SpO2 97% BMI 34.66 kg/m? PAST MEDICAL HISTORY Diagnosis Date - NEGATIVE MEDICAL HISTORY PAST SURGICAL HISTORY Procedure Laterality Date - NONE ALLERGIES Patient has no known allergies. MEDICATIONS Naproxen SR (EC-NAPROSYN) 500 mg EC tablet Take 1 tablet by mouth twice daily with meals. FAMILY HISTORY Problem Relation Age of Onset - Hypertension Father - Heart Mother [place], aortic aneurysm - Heart Father - None Brother - None Brother - None Brother - None Sister Social History Tobacco Use - Smoking status: Never Smoker - Smokeless tobacco: Never Used Substance Use Topics - Alcohol use: Yes Comment: Occasional - Drug use: No Objective Physical Exam Constitutional: He is oriented to person, place, and time and well-developed, well-nourished, and in no distress. HENT: Head: Normocephalic and atraumatic. Eyes: Conjunctivae are normal. Cardiovascular: Normal rate, regular rhythm, normal heart sounds and intact distal pulses. Exam reveals no gallop and no friction rub. No murmur heard. Pulmonary/Chest: Effort normal and breath sounds normal. No respiratory distress. He has no wheezes. He has no rales. He exhibits no tenderness. Musculoskeletal: He exhibits no edema. Lymphadenopathy: He has no cervical adenopathy. Neurological: He is alert and oriented to person, place, and time. Gait normal. Skin: Skin is warm. He is diaphoretic. Psychiatric: Mood, memory, affect and judgment normal. ASSESSMENT/PLAN: 1. Urinary frequency - ICD9: 788.41, ICD10: R35.0 (primary diagnosis) acute - positive for bilirubin, blood, protein, and urobilinogen - no clear sign of UTI - UA DIP, URINE (POC) - URINE CULTURE 2. Lethargy - ICD9: 780.79, ICD10: R53.83 3. Diaphoresis - ICD9: 780.8, ICD10: R61 Needs immediate work up with labs and imaging at ER. Patient prefers [facility]. Transport by . Called report to ER. Adelia Marsh APRN.CNP Referring Provider: SELF [[id number]] Allergies As of Date: 03/26/2019 (No Known Allergies) Date Reviewed: 03/26/2019 Reviewed by: Carlene Velásquez MA - Fully Assessed Reason for Visit: Perspiration [81] Cmt: back pain x 1 week, lethargic, sweating x this week Primary Visit Diagnosis:Urinary frequency [R35.0] Other Visit Diagnoses:Lethargy [R53.83] Diaphoresis [R61] Order(s):UA DIP, URINE (POC) [3080078] Order #: [id number]. #[id number] URINE CULTURE [SQURCUL] Order #: [id number] Prescriptions as of 03/26/2019 Sig: NAPROXEN 500 MG TABLET,DELAYE* Take 1 tablet by mouth twice * Problem List As Of Date 03/26/2019 Noted Resolved LUMBAGO [M54.5] INVALID FOR* Hypertension [I10] INVALID FOR* Pain in limb INVALID FOR* More... Hyperlipidemia [E78.5] INVALID FOR* Encounter Status:Closed by ADELIA MARSH APRN.CNP on 03/26/19 Normal [facility] PROGRESSon 03-26-2019 PROGRESS HNO ID: [id number] Author: Adelia Marsh Service: ? Author Type: Nurse Practitioner Type: Progress Notes Filed: 03/26/2019 7:02 PM Note Text: Subjective HPI Francisco Amato is a 58 year old male who presents with low back discomfort, lethargy, and sweating. He is requesting lab work. Denies chest pain or shortness of breath. Says he does not feel right. Review of Systems Constitutional: Positive for chills, diaphoresis and malaise/fatigue. Negative for fever. HENT: Negative for congestion. Eyes: Negative for blurred vision. Respiratory: Negative for cough, sputum production, shortness of breath and wheezing. Cardiovascular: Negative for chest pain and palpitations. Genitourinary: Positive for dysuria, flank pain and frequency. Musculoskeletal: Positive for back pain. Negative for myalgias. Skin: Negative for itching and rash. Neurological: Positive for dizziness and weakness. BP 122/78 Pulse 111 Temp 36.7 ?C (98 ?F) (Tympanic) Wt 111.1 kg (245 lb) SpO2 97% BMI 34.66 kg/m? PAST MEDICAL HISTORY Diagnosis Date - NEGATIVE MEDICAL HISTORY PAST SURGICAL HISTORY Procedure Laterality Date - NONE ALLERGIES Patient has no known allergies. MEDICATIONS Naproxen SR (EC-NAPROSYN) 500 mg EC tablet Take 1 tablet by mouth twice daily with meals. FAMILY HISTORY Problem Relation Age of Onset - Hypertension Father - Heart Mother [place], aortic aneurysm - Heart Father - None Brother - None Brother - None Brother - None Sister Social History Tobacco Use - Smoking status: Never Smoker - Smokeless tobacco: Never Used Substance Use Topics - Alcohol use: Yes Comment: Occasional - Drug use: No Objective Physical Exam Constitutional: He is oriented to person, place, and time and well-developed, well-nourished, and in no distress. HENT: Head: Normocephalic and atraumatic. Eyes: Conjunctivae are normal. Cardiovascular: Normal rate, regular rhythm, normal heart sounds and intact distal pulses. Exam reveals no gallop and no friction rub. No murmur heard. Pulmonary/Chest: Effort normal and breath sounds normal. No respiratory distress. He has no wheezes. He has no rales. He exhibits no tenderness. Musculoskeletal: He exhibits no edema. Lymphadenopathy: He has no cervical adenopathy. Neurological: He is alert and oriented to person, place, and time. Gait normal. Skin: Skin is warm. He is diaphoretic. Psychiatric: Mood, memory, affect and judgment normal. ASSESSMENT/PLAN: 1. Urinary frequency - ICD9: 788.41, ICD10: R35.0 (primary diagnosis) acute - positive for bilirubin, blood, protein, and urobilinogen - no clear sign of UTI - UA DIP, URINE (POC) - URINE CULTURE 2. Lethargy - ICD9: 780.79, ICD10: R53.83 3. Diaphoresis - ICD9: 780.8, ICD10: R61 Needs immediate work up with labs and imaging at ER. Patient prefers [facility]. Transport by . Called report to ER. Adelia Marsh APRN.[employer] Normal [facility] Vital Signs Date Time Vital Sign Value Performing Clinician Gerald justin 02-24-2025 09:32-0400 Body height 180.[address] Deondre Rico MD Work Phone: [facility] 02-24-2025 09:32-0400 Body mass index (BMI) [Ratio] 30.5 kg/m2 Dr. Deondre Rico MD Work Phone: [facility] 02-24-2025 09:32-0400 Body weight 99.[address] Deondre Rico MD Work Phone: [facility] 02-24-2025 09:32-0400 Diastolic blood pressure 75 mm[Hg] Dr. Deondre Rico MD Work Phone: [facility] 02-24-2025 09:32-0400 Heart rate 66 /min Dr. Deondre Rico MD Work Phone: [facility] 02-24-2025 09:32-0400 Respiratory rate 16 /min Dr. Deondre Rico MD Work Phone: [facility] 02-24-2025 09:32-0400 Systolic blood pressure 130 mm[Hg] Dr. Deondre Rico MD Work Phone: [facility] 08-01-2023 09:04-0400 Body height 180.[address] Deondre Rico Work Phone: [facility] 08-01-2023 09:04-0400 Body mass index (BMI) [Ratio] 31.8 kg/m2 Dr. Deondre Rico Work Phone: [facility] 08-01-2023 09:04-0400 Body weight 103.[address] Deondre Rico Work Phone: [facility] 08-01-2023 09:04-0400 Diastolic blood pressure 77 mm[Hg] Dr. Deondre Rico Work Phone: [facility] 08-01-2023 09:04-0400 Heart rate 78 /min Dr. Deondre Rico Work Phone: [facility] 08-01-2023 09:04-0400 Respiratory rate 16 /min Dr. Deondre Rico Work Phone: [facility] 08-01-2023 09:04-0400 Systolic blood pressure 133 mm[Hg] Dr. Deondre Rico Work Phone: [facility] 02-25-2023 14:04-0400 Body height 180.[address] Deondre Rico Work Phone: [facility] 02-25-2023 14:04-0400 Body mass index (BMI) [Ratio] 31.5 kg/m2 Dr. Deondre Rico Work Phone: [facility] 02-25-2023 14:04-0400 Body weight 102.[address] Deondre Rico Work Phone: [facility] 02-25-2023 14:04-0400 Diastolic blood pressure 83 mm[Hg] Dr. Deondre Rico Work Phone: [facility] 02-25-2023 14:04-0400 Heart rate 65 /min Dr. Deondre Rico Work Phone: [facility] 02-25-2023 14:04-0400 Respiratory rate 18 /min Dr. Deondre Rico Work Phone: [facility] 02-25-2023 14:04-0400 SaO2% (BldA) [Mass fraction] 94 % Dr. Deondre Rico Work Phone: [facility] 02-25-2023 14:04-0400 Systolic blood pressure 155 mm[Hg] Dr. Deondre Rico Work Phone: [facility] Encounters Encounter Date Encounter Type Care Provider Facility Start: 05-26-2025 Encounter for genera l adult medical examination without abnormal findings [place] SNACK BAR CASHIER [facility] Start: 05-20-2025 End: 05-20-[address] Deondre Rico MD Work Phone: -Laboratory [facility] Start: 05-20-2025 End: 05-20-2025 Patient encounter procedure [place] SNACK BAR CASHIER-C -Laboratory [facility] Start: 05-20-2025 End: 05-20-2025 ambulatory [place] SNACK BAR CASHIER Facility:[facility] Start: 04-22-2025 End: 04-22-[address] Deondre Rico MD Work Phone: -Cat Scan [facility] Start: 04-22-2025 End: 04-22-2025 Patient encounter procedure Negin Anguiano PA -Cat Scan [facility] Work Phone: Start: 04-22-2025 End: 04-22-2025 ambulatory Negin JAVED Facility:[facility] Start: 04-08-2025 Non-patient / Non-visit Dr. Deondre etienne MD -[facility] Start: 04-08-2025 End: 04-08-[address] Deondre Rico MD Work Phone: -Cardiovascular Services Start: 04-08-2025 End: 04-08-2025 Patient encounter procedure Negin JAVED -Cardiovascular Services Work Phone: Start: 04-08-2025 End: 04-08-2025 ambulatory Negin JAVED Facility:[facility] Start: 03-25-2025 End: 03-25-[address] Deondre Rico MD Work Phone: -Ultrasound [facility] Start: 03-25-2025 End: 03-25-[address] Mary Mcghee MD -Ultrasound [facility] Work Phone: Start: 03-25-2025 End: 03-25-2025 ambulatory Mary Taz Facility:[facility] Start: 03-11-2025 End: 03-11-[address] Deondre Rico MD Work Phone: [facility] Work Phone: Start: 03-11-2025 End: 03-11-[address] Mary Mcghee MD -Laboratory Work Phone: Start: 03-11-2025 End: 03-11-2025 ambulatory Mary Taz Facility:[facility] Start: 02-24-2025 End: 02-24-[address] Mary cMghee MD -[facility] Work Phone: Start: 02-24-2025 End: 02-24-[address] Deondre Rico MD Work Phone: [facility] Work Phone: Start: 11-12-2024 End: 11-12-[address] Deondre Rico MD -Laboratory [place] Work Phone: Start: 11-12-2024 End: 11-12-2024 ambulatory Deondre Rico Facility:[facility] Start: 10-13-2024 End: 10-13-2024 ambulatory Deondre Rico Facility:[facility] Start: 09-07-2024 ambulatory Mary Taz Facility:[facility] Start: 09-07-2024 End: 09-07-2024 ambulatory Mary Taz Facility:[facility] Start: 09-02-2024 ambulatory Mary Taz Facility:[facility] Start: 09-02-2024 End: 09-02-2024 ambulatory Mary Taz Facility:[facility] Start: 08-20-2024 End: 08-20-2024 ambulatory Deondre Rico Facility:[facility] Start: 08-12-2024 End: 08-12-2024 ambulatory Mary Taz Facility:[facility] Start: 06-16-2024 Encounter for genera l adult medical examination with abnormal findings Deondre Rico [facility] Start: 06-16-2024 ambulatory Deondre Rico Facility:[facility] Start: 08-29-2023 End: 08-29-[address] Deondre Rico Work Phone: [facility] Work Phone: Start: 08-29-2023 End: 08-29-[address] [facility] Start: 08-01-2023 End: 08-01-[address] Deondre Rico Work Phone: [facility] Work Phone: Start: 05-15-2023 End: 05-15-[address] Deondre Rico Work Phone: [facility] Work Phone: Start: 05-15-2023 End: 05-15-[address] Deondre Rico Work Phone: [facility] Start: 02-25-2023 End: 02-25-[address] Deondre Rico Work Phone: [facility] Work Phone: Start: 05-03-2022 End: 05-03-2022 Patient encounter procedure [facility] Procedures Date Procedure Procedure Detail Performing Clinician Start: 05-20-2025 Prostate specific an tigen measurement Dr. Deondre Rico MD Work Phone: Comment on above: This test was perfor med using the [employer] tPSA method. Measured values of a patient sample can vary depending on the testing procedure used. PSA values determined on patient samples by different testing procedures cannot be used interchangeably. If there is a change in PSA assays while monitoring therapy, sequential testing should be performed to confirm baseline values. Start: 04-22-2025 CT angiography of est with contrast Dr. Deondre Rico MD Work Phone: Start: 11-12-2024 Measurement of renal function Dr. Deondre Rico MD Work Phone: Comment on above: GFR Calc Start: 11-12-[address] Deondre Rico MD Work Phone: Start: 11-12-2024 Urine microalbumin/creatinine ratio measurement Dr. Deondre Rico MD Work Phone: Start: 11-12-2024 Vitamin D, 25-hydrox y measurement Dr. Deondre Rico MD Work Phone: Comment on above: Vitamin D 25(OH) Sta tus Range Deficiency <20 ng/mL (50nmol/L) Insufficiency 20 - 30 ng/mL (50 - 75 nmol/L) Sufficiency 30 - 100 ng/mL (75 - 250 nmol/L) Toxicity >100 ng/mL (>250 nmol/L) Start: 11-12-2024 XR knee, [address] Phyllis Rico MD Work Phone: Plan of Treatment Date Care Activity Detail Author CTA Chest vessels WO and W contrast IV [facility] US scan of abdominal aorta [facility] Payers Date Payer Category Payer Self-pay [id number] 2024 Unknown [id number] Unknown SELF PAY INSURANCE [id number] Unknown [id number] 2.16.8 [id number] Unknown [id number] 2.16.8 [id number] Unknown [id number] 2.16.8 [id number] Unknown [id number] 2.16.8 [id number] Unknown [id number] 2.16.8 [id number] Unknown [id number] 2.16.8 [id number] Unknown [id number] 2.16.8 [id number] Unknown [id number] 2.16.8 40.1.088742.3.579.2.462 Unknown [id number] 2.16.8 [id number] Unknown [id number] 2.16.8 40.1.711935.3.579.2.462 Unknown [id number] 2.16.8 40.1.458507.3.579.2.462 Unknown [id number] 2.16.8 40.1.550249.3.579.2.462 Unknown [id number] 2.16.8 40.1.611978.3.579.2.462 Unknown [id number] 2.16.8 40.1.116811.3.579.2.462 Unknown [id number] 2.16.8 [id number] Unknown [id number] 2.16.8 [id number] Social History Date Type Detail Facility Start: 11-26-2021 End: 08-01-2023 Tobacco smoking status NHIS Unknown if ever smoked [facility] Start: 2019 None [facility] Start: 05-22-2019 With Family [facility] Start: 03-28-2019 Chew [facility] Start: 1960 Sex Assigned At Male W [facility] Start: 08-01-2023 Tobacco smoking stat us NDIS Never smoked tobacco (finding) [facility] Radiology Diagnostic study note 04-23-2025 Note Date & Type Note Facility 04-23-2025 Radiology Diagnostic study note [facility] Imaging Services [address] [place] [address] [place] [address] CTA Chest W/WO Contrast MR#: [id number] Acct: [id number] Name: FRANCISCO AMATO Rep #: [id number] : 1960 M 65 From: Samantha Quinones MD PCP: Dr. Deondre Rico MD Status: REG CLI Study:CTA Chest W/WO Contrast Date of Exam: 04/22/25 Exam# [id number] Ordering Dr: Negin Escalante PROCEDURE: CTA CHEST W/WO CONTRAST 04/22/2025 REASON FOR EXAM: KNOWN AAA MONITORING TECHNIQUE: CTA CHEST W/WO CONTRAST Multiplanar Sagittal and Coronal images were obtained. CONTRAST: Isovue 370 VOLUME: 90 mL One or more dose reduction techniques were used (e.g., Automated exposure control, adjustment of the mA and/or kV according to patient size, use of iterative reconstruction technique). RADIATION DOSE SUMMARY: CTDlvol: 29 mGy DLP: 665 mGycm COMPARISON: 10/14/2024 FINDINGS: Unremarkable base of neck and axilla. Thoracic spine degeneration. Normal esophagus. Upper limits of normal heart size. Mildly tortuous thoracic aorta. Minimal calcified plaque. Dilated ascending aorta, maximum cross-section 4.2 x 4.2 cm. 4 vessel arch, the left vertebral artery arises directly off the arch. No centralpulmonary embolism. Thoracic spine degeneration. No acute chest wall findings. No acute upper abdominal findings. Central airways are patent. Slight dependent atelectasis. No consolidation, effusion, or pneumothorax. . CT/CTA Chest W/WO Contrast IMPRESSION: Dilated ascending aorta, 4.2 cm maximum cross-section, this is unchanged from the previous examination. No acute chest findings Reading Location: [place] [address] CC: Dr. Deondre Rico MD; TEGAN Anton ~ Principal Technical Writer: Signed [facility] Evaluation note 02-24-2025 Note Date & Type Note Facility 02-24-2025 Evaluation note Diagnosis Onset Date Resolution Coronary artery disease chronic M ay 2024 2:39pm Dyslipidemia chronic February 24 2:39pm Hypertension chronic February 24 2:39pm Thoracic aortic aneurysm chronic February 24, 2025 2:39pm History of ischemic cardiomyopathy resolved February 24, 2025 2:39pm [facility] Work Phone: Progress note 02-24-2025 Note Date & Type Note Facility 02-24-2025 Progress note [facility] Services Progress note 02-24-2025 Note Date & Type Note Facility 02-24-2025 Progress note Note Date/Time February 24, 2025 3:17pm [facility] [address] [place] [address] OFFICE VISIT Date of Service: 02/24/25 MR#: [id number] Acct: [id number] Name: FRANCISCO AMATO Rep #: [id number] : 1960 Provider: Dr. Jim Mcghee MD Age/Sex: 64/M Location: [facility] Status: Signed HPI HPI History of Present Illness Details: This gentleman with history of coronary artery disease status post percutaneous intervention with JEMIMA to the left circumflex/obtuse marginal and RCA, ischemic cardiomyopathy with LVEF having since recovered, hypertension and thoracic aortic aneurysm is here for follow-up visit. Denies complaints. No chest pains. No shortness of breath. No palpitations. No orthopnea or PND. No ankle edema. Intake Vital Signs 08/12/24 08:21 02/24/25 09:32 Height 5 ft 11 in 5 ft 11 in Weight: 219 lb BMI 30.5 BP 130/75 H Blood Pressure Location Lt brachial Position Sitting Respiration 16 Pulse 66 Pulse Source Monitor Intake Visit Reasons: 6 M FU Solar Manager Required: No Accompanied by: Self Is patient in pain?: No Allergies No Known Allergies Allergy (Verified 02/24/25 14:46) Medications ?Medication ?Instructions ?Recorded ?Confirmed ?Type aspirin 81 mg tablet,delayed 81 mg PO DAILY@0800 #90 t abs 05/27/22 02/24/25 Rx release pyridoxine (vitamin B6) 50 mg 50 mg PO DAILY 08/01/23 02/24/25 History tablet lisinopril 20 mg tablet 20 mg PO BID #60 tabs 02/24/25 Rx rosuvastatin 5 mg tablet 5 mg PO DAILY #90 tabs 03/0802/24/25 Rx nitroglycerin 0.4 mg sublingual 0.4 mg sublingual Q5M PRN 08/12/24 02/24/25 Rx tablet Cardiac/Chest Pain ##25 amlodipine 5 mg tablet 5 mg PO QDAY #90 tabs 02/24/25 Rx carvedilol 25 mg tablet 25 mg PO BID #180 tabs 10/1402/24/25 Rx cholecalciferol (vitamin D3) 25 25 mcg PO QDAY 5 02/24/25 History mcg (1,000 unit) capsule (Vitamin D3) Ejection fraction %: 65 PFSH Medical History Ascending aorta dilatation Benign essential HTN HLD (hyperlipidemia) Presence of stent in coronary artery (~05/19/19) History of non-ST elevation myocardial infarction (NSTEMI) (03/2019) Chronic systolic (congestive) heart failure CKD (chronic kidney disease) Ischemic cardiomyopathy Acute kidney injury Atherosclerosis of [place] coronary artery of [place] heart without angina pectoris Hypertensive urgency Acute renal insufficiency Surgical History Presence of coronary angioplasty implant and graft (~05/19/19) History of left heart catheterization Family History Father Heart disease in early 70s Hypertension Mother Heart disease, Onset Age: 65 smoker Brother Heart disease, Onset Age: 60 Social History Smoking Status: Never smoker Smokeless tobacco user: chewing tobacco alcohol intake: never substance use type: does not use caffeine: Yes Type: carbonated beverages Number of servings: 1 ROS Const Const: Negative for fatigue, weakness, headache(s) or weight gain ENT ENT: Negative for headache(s), dizziness, Nosebleed/epistaxis or balance problems Cardio Chest Pain: No Palpitations: No Edema: None Muscle aches with walking: None Resp Respiratory: Negative for SOB with activity, SOB at rest or SOB orthopneaundefinedSOB lying down GI GI: Negative nausea, vomiting or heartburn Musc Musc: Positive for joint pain (Occ Gout); Negative for muscle aches/ myalgia, muscle weakness or balance problems Neuro Neuro: Negative for dizziness, lightheadedness, near syncope, syncope, headache(s) or weakness Endo Endo: Negative for fatigue Cardiology Exam Const Appearance: comfortable and no acute distress Nutritional Appearance: well nourished Neck Neck: no JVD Carotids: Negative bruit Chest Auscultation: Bilateral: Clear to Auscultation Cardio Rate: regular rate Rhythm: regular rhythm Heart sounds: S1 normal and S2 normal Neuro General: patient alert, patient awake and patient oriented x3 Extremities Lower Extremity Edema: None: Bilateral Supplemental Info Supplemental Information Echocardiogram 09/07/2024: Moderate LV concentric hypertrophy. LVEF 65%. Stage I diastolic dysfunction. Mild (1+) mitral valve insufficiency. Mild tricuspid valve insufficiency. Mildly dilated aortic root. Stress Test 09/02/2024: Impression: 1. Technically adequate (percent predicted maximal heart rate greater than 85%)exercise tolerance test. Hypertensive blood pressure response to exercise. 2. Peak exercise ECG with no ischemic changes 3. No significant cardiac dysrhythmias noted. Rare PVC. 4. Rest and stress SPECT Cardiolite nuclear imaging demonstrate relative uniform tracer uptake and myocardial perfusion appearing within normal limits. 5. The gated Cardiolite study reports an LVEF of 57%. Thallium Viability Study 05/06/2019: Impression: Rest-Rest (4-hour and 24-hour SPECT thallium imaging) viability study demonstrates areas of diminished myocardial perfusion/tracer uptake in portions of the basal inferior septal, basal inferior, basal inferolateral segments at 4 hours which appears to improve at 24 hours suggesting findings compatible with underlying myocardial viability in the aforementioned areas. Heart Catheterization 03/30/2019: CONCLUSIONS Diffuse disease noted in the circumflex artery and high-grade disease noted in the distal right coronary artery. Eccentric moderate disease noted in the proximal right coronary artery. Global left ventricular systolic dysfunction. RECOMMENDATIONS Medical therapy CORONARY ANGIOGRAPHY DOMINANCE: Right Dominant LEFT HEART ASSESSMENT Left Ventricular Ejection Fraction: by LV Gram 40 % Global Hypokinesis - Mild Depressed Left Ventricular systolic function LEFT MAIN: Angiographically normal LEFT ANTERIOR DESCENDING ARTERY: Mild luminal irregularities less than 30% DISTAL LAD: Moderate luminal irregularities up to 50% CIRCUMFLEX ARTERY: MID CIRC: Moderate luminal irregularities up to 50% RIGHT CORONARY ARTERY: PROX RCA: Diffusely diseased up to 40 % RT PLV: 80 % Stenosis COMPLICATIONS No Complications Cardiac Intervention 05/19/2019: CONCLUSIONS Successful PTCA/JEMIMA mid LCX with a 2.5 x 24 Promus Synergy, post dilated with a 2.5 x 12 NC Balloon; 85%-->0%, no dissection. Successful PTCA/JEMIMA mid RPL branch with a 2.25 x 12 Promus Synergy; 85%-->0%, nodissection. Successful PTCA/JEMIMA mid RCA with a 4.0 x 24 Promus Synergy, post dilated with a 4.0 x 8 NC Balloon; 75%-->0%, no dissection. Successful PCI with PTCA to the ostial PL Branch #1 with a 2.0 x 8 balloon; 85%-->50%, no dissection. CT/CTA Chest W/WO Contrast 10/13/2024: IMPRESSION: Dilatation of the root of the ascending thoracic aorta measuring 46.4 mm. Assessment and Plan Assessment and Plan (1) Coronary artery disease: Status: Chronic Plan: History of JEMIMA to the left circumflex and right posterior lateral ventricular branch. Continue aspirin. Beta-blockers. Statins. (2) History of ischemic cardiomyopathy: Status: Resolved Plan: LVEF since recovered. Carvedilol and lisinopril. (3) Thoracic aortic aneurysm: Status: Chronic Plan: Periodic CT surveillance. Also check ultrasound abdominal aorta. (4) Hypertension: Status: Chronic Plan: Amlodipine, carvedilol, lisinopril.. (5) Dyslipidemia: Status: Chronic Plan: On rosuvastatin. Check lipid profile. Plan Details Follow Up: 6 Months Coding Level of Care Code Off vis,est,level 4 Diagnoses Coronary artery disease I25.10 History of ischemic cardiomyopathy Z86.79 Thoracic aortic aneurysm I71.20 Hypertension I10 Dyslipidemia E78.5 Coding Level of Care Code Off vis,est,level 4 Diagnoses Coronary artery disease I25.10 History of ischemic cardiomyopathy Z86.79 Thoracic aortic aneurysm I71.20 Hypertension I10 Dyslipidemia E78.5 Clinical Quality Measures Cardiac Ejection fraction %: 65 02/24/25 1517 <Electronically signed by Mary Mcghee MD> Date _ Mary Mcghee MD Cosigner Signature: Date (if applicable) CC: ~ [facility] Work Phone: Evaluation note 04-29-2019 Note Date & Type Note Facility 04-29-2019 Evaluation note Diagnosis Onset Date HLD (hyperlipidemia) acute Presence of stent in coronar y artery April, acute [id number] chronic Benign essential HTN chronic Chronic systolic (congestive ) heart failure chronic Ischemic cardiomyopathy crm business analyst cahrley [facility] Work Phone: Evaluation note 04-29-2019 Note Date & Type Note Facility 04-29-2019 Evaluation note Diagnosis Onset Date Benign essential HTN chronic HLD (hyperlipidemia) chronic Ischemic cardiomyopathy crm business analyst charley Presence of stent in coronar y artery April, [facility] Work Phone: Evaluation note Note Date & Type Note Facility Evaluation note No assessment information availa [facility] Work Phone: Evaluation note Note Date & Type Note Facility Evaluation note Diagnosis Onset Date Resolution Coronary artery disease chronic M ay 2024 2:39pm Dyslipidemia chronic February 24 2:39pm Hypertension chronic February 24 2:39pm Thoracic aortic aneurysm chronic February 24, 2025 2:39pm History of ischemic cardiomyopathy resolved February 24, 2025 2:39pm [facility] Work Phone: Reason for referral (narrative) Note Date & Type Note Facility Reason for referral (narrative) No reason for referral information available [facility] Work Phone: Summary Purpose Family History No Family History Records Found Relationship Condition Age at Onset Recorded Date/T avery father Cardiac disease Unknown Hypertension Unknown mother Cardiac disease 65 brother Cardiac disease 60 Advance Directives No Advanced Directives Records Found Advance Directive Response Recorded Date/ Time Advance Directives No May 19, 2019 8:03am Living Will Yes May 27 9 10:52am Power of Size Stamper Yes May 22, 2 019 2:48pm Advance Directive Response Recorded Date/ Time Advance Directives No May 19, 2019 7:03am Living Will Yes May 27 9 9:52am Power of Size Stamper Yes [place] [address], 2 019 1:48pm Advance Directive Response Recorded Date/ Time Advance Directives No May 19, 2019 8:03am Chief Complaint and Reason for Visit Chief Complaint Admit Date 6 M FU February 24, 2025 2:39p m R/O AAA March 25, 2025 10:5 2am Reason for Visit Admit Date Coronary artery disease February 24, 2025 2 :39pm Dyslipidemia February 24, 2025 2:39p m Hypertension February 24, 2025 2:39p m Thoracic aortic aneurysm February 24, 2025 2:39pm History of ischemic cardiomyopathy January 282024 2:39pm Chief Complaint 1 Y FU PREV PFM PT Reason for Visit HLD (hyperlipidemia) Presence of stent in coronary artery [id number] Benign essential HTN Chronic systolic (congestive) heart failure Ischemic cardiomyopathy Chief Complaint 6 M FU Reason for Visit Benign essential HTN HLD (hyperlipidemia) Ischemic cardiomyopathy Presence of stent in coronary artery Chief Complaint Admit Date L knee pain November 12, 2024 9:11am 6 M FU February 24, 2025 2:39p m Chief Complaint Admit Date 6 M FU February 24, 2025 2:39p m R/O AAA March 25, 2025 10:5 2am THORACIC AORTIC ANEURYSM W/O RUPTURE UNS PECIFIED April 08, 2025 7:58am Chief Complaint Admit Date 6 M FU February 24, 2025 2:39p m R/O AAA March 25, 2025 10:5 2am THORACIC AORTIC ANEURYSM W/O RUPTURE UNS PECIFIED April 08, 2025 7:58am Thoracic aortic ectasia April 22, 2025 1:20pm Additional Source Comments (unrecognized sect ion and content) No Status Records FoundNo Status Records Found INFORMATION SOURCE (unrecogn ized section and content) DATE CREATED AUTHOR 04/02/2019 [facility] DATE CREATED AUTHOR AUTHOR'S ORGANIZ ATION 05/28/2025 [place] [facility] Goals (unrecognized section and content) Goals may be documented in a n alternate sectionGoals may be documented in an alternate sectionGoals may be documented in an alternate sectionGoals may be documented in an alternate sectionGoals may be documented in an alternate sectionGoals may be documented in an alternate sectionGoals may be documented in an alternate sectionGoals may be documented in an alternate sectionGoals may be documented in an alternate section Care Teams (unrecognized sec tion and content) Team Status: Active Member Role Status Dates Dr. Anthony Cabral MD Family Provider Active Dr. Deondre Rico MD Primary Care Provider Active Team Status: Inactive Member Role Status Dates Dr. Deondre Rico MD Primary Care Provider, Referring P rovider Active Dr. Masoud Escobar MD Active Kirby Rudolph SNACK BAR CASHIER, SNACK BAR CASHIER-C Attending Provider Active Team Status: Inactive Member Role Status Dates Dr. Deondre Rico MD Primary Care Provider Active Leno Valdez MD Attending Provider Active Team Status: Inactive Member Role Status Dates Dr. Deondre Rico MD Primary Care Provider, Referring P rovider Active Kirby Rudolph SNACK BAR CASHIER, SNACK BAR CASHIER-C Attending Provider Active Team Status: Inactive Member Role Status Dates Dr. Deondre Rico MD Primary Care Provider Active Kirby Rudolph SNACK BAR CASHIER, SNACK BAR CASHIER-C Attending Provider, Referring Pro vider Active Team Status: Inactive Member Role Status Dates Dr. Deondre Rico MD Primary Care Provider Active Start: November 12, 2024 End: November 12, 2024 Dr. Deondre Rico MD Attending Provider Active St art: November 12, 2024 End: November 12, 2024 Dr. Deondre Rico MD Referring Provider Active St art: November 12, 2024 End: November 12, 2024 Team Status: Inactive Member Role Status Dates Dr. Deondre Rico MD Primary Care Provider Active Start: February 24, 2025 End: February 24, 2025 Dr. Deondre Rico MD Referring Provider Active St art: February 24, 2025 End: February 24, 2025 Dr. Mary Mcghee MD Attending Provider Active Start: February 24, 2025 End: February 24, 2025 Team Status: Active Member Role Status Dates Dr. Deondre Rico MD Primary Care Provider Active Team Status: Inactive Member Role Status Dates Dr. Deondre Rico MD Primary Care Provider Active Start: March 11, 2025 End: March 11, 2025 Dr. Mary Mcghee MD Attending Provider Active Start: March 11, 2025 End: March 11, 2025 Dr. Mary Mcghee MD Referring Provider Active Start: March 11, 2025 End: March 11, 2025 Team Status: Active Member Role/Relationship Status Dates Dr. Deondre Rico MD Primary Care Provider Active Team Status: Inactive Member Role/Relationship Status Dates Dr. Deondre Rico MD Primary Care Provider Active Start: February 24, 2025 End: February 24, 2025 Dr. Deondre Rico MD Referring Provider Active St art: February 24, 2025 End: February 24, 2025 Dr. Mary Mcghee MD Attending Provider Active Start: February 24, 2025 End: February 24, 2025 Team Status: Inactive Member Role/Relationship Status Dates Dr. Deondre Rico MD Primary Care Provider Active Start: March 11, 2025 End: March 11, 2025 Dr. Mary Mcghee MD Attending Provider Active Start: March 11, 2025 End: March 11, 2025 Dr. Mary Mcghee MD Referring Provider Active Start: March 11, 2025 End: March 11, 2025 Team Status: Inactive Member Role/Relationship Status Dates Dr. Deondre Rico MD Primary Care Provider Active Start: March 25, 2025 End: March 25, 2025 Dr. Mary Mcghee MD Attending Provider Active Start: March 25, 2025 End: March 25, 2025 Dr. Mary Mcghee MD Referring Provider Active Start: March 25, 2025 End: March 25, 2025 Team Status: Inactive Member Role/Relationship Status Dates Dr. Deondre Rico MD Primary Care Provider Active Start: April 08, 2025 End: April 08, 2025 Negin JAVED, PA Attending Provider Active Start: April 08, 2025 End: April 08, 2025 Negin JAVED, PA Referring Provider Active Start: April 08, 2025 End: April 08, 2025 Team Status: Active Member Role/Relationship Status Dates Dr. Deondre Rico MD Primary Care Provider Active Start: April 08, 2025 Dr. Deondre Boucher MD Attending Provider Active S tart: April 08, 2025 Team Status: Inactive Member Role/Relationship Status Dates Dr. Deondre Rico MD Primary Care Provider Active Start: April 22, 2025 End: April 22, 2025 Negin Anguiano PA, PA Attending Provider Active Start: April 22, 2025 End: April 22, 2025 Negin Anguiano PA, PA Referring Provider Active Start: April 22, 2025 End: April 22, 2025 Team Status: Active Member Role/Relationship Status Dates Dr. Deondre Rico MD Primary Care Provider Active Start: April 08, 2025 Dr. Deondre Boucher MD Attending Provider Active S tart: April 08, 2025 Negin JAVED, PA Referring Provider Active Start: April 08, 2025 Team Status: Inactive Member Role/Relationship Status Dates Dr. Deondre Rico MD Primary Care Provider Active Start: May 20, 2025 End: May 20, 2025 [place] [employer], SNA[employer] CASHIER-C Attending Provider Active Start: May 20, 2025 End: May 20, 2025 FOR RECORDS PERTAINING TO PATIENTS WHO ARE OR HAVE BEEN ENROLLED IN A CHEMICAL DEPENDENCY/SUBSTANCEABUSE PROGRAM, SOME INFORMATION MAY BE OMITTED. This clinical summary was aggregated from multiple sources. Caution should be exercised in using it in the provision of clinical care. This summary normalizes information from multiple sources, and as a consequence, information in this document may materially change the coding, format and clinical context of patient data. In addition, data may be omitted in some cases. CLINICAL DECISIONS SHOULD BE BASED ON THE PRIMARY CLINICAL RECORDS. [facility]. provides no warranty or guarantee of the accuracy or completeness of information in this document.
--- NOTE | 2025-09-20 12:25 | STRESSREP ---
Stress Test Report Date: 09/20/2025 Procedure: Pharmacologic stress nuclear imaging study Indications: Coronary artery disease Consent: Per the patient Procedure: The patient underwent pharmacologic (Regadenoson 0.4mg ) evaluation with a peak heart rate of 83 beats per minute (53%predicted maximal heart rate) and a peak blood pressure of 130/78 mmHg. The baseline ECG demonstrated sinus rhythm with right bundle branch block. The peak pharmacologic ECG did not show any ischemic changes. There were no cardiac dysrhythmias pretest, during pharmacologic infusion, or recovery. There was no complaint of chest discomfort during pharmacologic infusion or recovery. The patient was injected with 12.0 millicuries of technetium 99m Cardiolite and subsequently rest SPECT Cardiolite nuclear imaging was obtained in the horizontal long, vertical long, and short axis views. The patient underwent pharmacologic (Regadenoson) evaluation. The patient was injected with 35.7 millicuries of technetium 99m Cardiolite and subsequently stress SPECT Cardiolite nuclear imaging was obtained in the horizontal long, vertical long, and short axis views. A gated Cardiolite study at peak stress was obtained. The examination was stopped secondary to completion of protocol. Rest and stress SPECT Cardiolite nuclear imaging status post realignment, normalization, and attenuation correction demonstrate no fixed or reversible perfusion defects. There is end systolic thickening and brightening. The gated Cardiolite study demonstrates myocardial thickening and inward wall motion. The reported LVEF is 58%. Impression: 1. Pharmacologic (Regadenoson) evaluation 2. Peak pharmacologic ECG with no ischemic changes. 3. There were no cardiac dysrhythmias pretest, during pharmacologic infusion, or recovery. 5. Rest and stress SPECT Cardiolite nuclear imaging demonstrate relative uniform tracer uptake and myocardial perfusion appearing within normal limits. 6. The gated Cardiolite study reports an LVEF of 58%. This note was generated with [employer] software. It may contain incorrect words, spelling, and punctuation that were not noted in checking the note before signing.
== END | disposition home or self-care (01) ==
LOC: CVS 06:50
PROVIDERS: PCP Family Medicine; Referring Provider Internal Medicine Cardiovascular Disease; Visit Provider Internal Medicine Cardiovascular Disease
DX: I25.10 Atherosclerotic heart disease of native coronary artery without angina pectoris (principal)
CPT/HCPCS: 78452; 93017; 93306; A9500; Q9957; A4216; C8929; J2785